=== PATIENT | male | born 1970 | race Caucasian/White ===

== ENCOUNTER → 2017-03-03 10:10 | Outpatient (CLI) | payer MEDICAID, SELFPAY ==
--- NOTE | 2017-03-03 10:39 | XR_ITS ---
XR chest 2V HISTORY: ITS.REASON: Fatigue ORDERING PHYSICIAN: Frederick Alvarado MD PATIENT AGE: 46 years COMPARISON: None available FINDINGS: The cardiomediastinal silhouette and pulmonary vascularity are within normal limits. There is a surgical clip projecting over the left upper chest medially. No lobar consolidation or collapse. There is blunting of the right CP angle. There are slight decrease in height of the upper thoracic vertebra as described in the cervical spine report age indeterminate. IMPRESSION: 1. Small right pleural effusion. 2. Mild wedging upper thoracic vertebra age-indeterminate
--- NOTE | 2017-03-03 10:39 | XR_ITS ---
EXAM: XR lumbar spine 2-3V HISTORY: ITS.REASON: Back Pain ORDERING PHYSICIAN: Frederick Alvarado MD PATIENT AGE: 46 years COMPARISON: None FINDINGS: There is mild lumbar curvature convex right. There is normal alignment. Transitional segment is present at L5-S1. Minimal anterior osteophyte formation along the superior aspect of L1. No fracture or dislocation. No lytic or blastic change. IMPRESSION: 1. Minimal lumbar scoliosis convex right. 2. No acute finding
--- NOTE | 2017-03-03 10:39 | XR_ITS ---
EXAM: XR cervical spine 3V HISTORY: ITS.REASON: Neck Pain ORDERING PHYSICIAN: Frederick Alvarado MD PATIENT AGE: 46 years COMPARISON: None FINDINGS: Normal alignment. No fracture or dislocation. No lytic or blastic change. There is mild degenerative disc disease at C5-C6. There is minimal anterolisthesis of C6 on C7 of 2 mm with mild degenerative disc disease at C6-C7 and C7-T1. There is slight decrease in height anteriorly of C7, T1, T2, and T3. Mild kyphosis noted at the thoracic or cervical junction. IMPRESSION: 1. Mild cervical spondylosis with degenerative disc disease at C5-C6 and C6-C7. 2. Mild wedging of C7, T1, T2, and T3 age-indeterminate with mild kyphosis at the cervicothoracic junction. MRI may be of further value to determine if this wedging is acute or chronic if clinically warranted
[2017-03-03 13:59] LABS: Alanine Aminotransferase 30 U/L (12-78); Alkaline Phosphatase 141 U/L (46-116); Anion Gap 13.8 mEq/L (5-15); Aspartate Amino Transferase 18 U/L (15-37); Bilirubin,Total 0.6 mg/dL (0.2-1.0); Blood Urea Nitrogen 7 mg/dL (7-18); Calcium 9.6 mg/dL (8.5-10.1); Carbon Dioxide 28 mmol/L (21.0-32.0); Chloride 100 mmol/L (98-107); Chol/HDL Ratio 4.3 (1-3.5); Cholesterol 168 mg/dL (140-200); Creatinine,Serum 0.77 mg/dL (0.70-1.30); Estimated Glomerular Filt Rate > 60 ml/min (>60); GFR (African American) > 60 ML/MIN (>60); Glucose 89 mg/dL (74-106); HDL Cholesterol 39 mg/dL (27-67); LDL Cholesterol 111 mg/dL (0-130); Potassium 4.8 mmoL/L (3.5-5.1); Sodium 137 mmol/L (136-145); Triglycerides 90 mg/dL (30-200); VLDL Cholesterol 18 mg/dL (0-40)
[2017-03-03 14:16] LABS: Basophils % 0.3 % (0.1-2.0); Eosinophils # 0.1 K/mm3 (0.0-0.4); Eosinophils % 0.6 % (0.1-12.0); Hematocrit 47.2 % (42.0-52.0); Hemoglobin 15.7 g/dL (14.1-18.0); Lymphocytes # 1.8 K/mm3 (0.7-4.5); Lymphocytes % 20.8 K/mm3 (10-50); Mean Corpuscular HGB Conc 33.3 g/dL (31.8-35.4); Mean Corpuscular Volume 90.2 fl (80-94); Mean Platelet Volume 8.1 fl (7.4-10.4); Monocytes # 0.5 K/mm3 (0.1-1.0); Monocytes % 6.1 % (1.7-9.3); Neutrophils % 72.1 % (37.0-80.0); Platelet Count 322 K/mm3 (142-424); Red Blood Count 5.24 M/mm3 (4.60-6.20); Red Cell Distribution Width 13.6 % (11.5-17.5); White Blood Count 8.4 K/mm3 (4.8-10.8)
== END ==
PROVIDERS: PCP Emergency Medicine; Visit Provider Emergency Medicine
DX: R53.83 Other fatigue (principal); M54.9 Dorsalgia, unspecified; M54.2 Cervicalgia
CPT/HCPCS: 71046; 72040; 72100; 80053; 80061; 85025

== ENCOUNTER 2017-06-19 09:59 | Outpatient (RCR) | payer MEDICAID, SELFPAY ==
--- NOTE | 2017-06-19 10:48 | HMH.PTOPEV ---
Rehab Outpatient Evaluation Rehab OP Evaluation Start: 06/19/17 10:38 Freq: Status: Active Protocol: Document 06/19/17 10:38 FRED (Rec: 06/19/17 10:48 FRED [id number]) Electronically Signed By Michael Krishnamurthy, PT 06/19/17 10:38 Outpatient Therapy Subjective History Subjective History Pt reports h/o chronic neck and LBP for ~15-20 yrs, however, reports exacerbation of s/s over the last 1-2 yrs. Pt reports R > L sided neck pain with radicular s/s down R UE to wrist/hand. Pt reports localized LBP w/o radicular s/ s. PMH:scoliosis, DDD, multiple sx's to correct collapsed lung Chief Complaint Pain Spasms Stiff Clicks Paresthesia Symptom Type Ache Throb Sharp Dull Burning Symptoms Relieved By Rest/Positioning Heat Ice Symptoms Aggravated By Standing Bending/Stooping Physical Activity Twisting Lifting Prior Functional Limitations Reaching Lifting Housework Walking Bending/Stooping Current Functional Limitations Reaching Lifting Housework Walking Bending/Stooping Symptom Description Constant but Variable Level of pain today (0-10) 5 Pain scale - at its best (0-10) 3 Pain scale - at its worst (0-10) 8 Cervical Eval Palpation Cervical Muscles R Cervical Paraspinal R CT Junction R Upper Trapezius L Upper Trapezius Cervical/Thoracic Palpation Findings Tenderness Posture Head/C-Spine Posture Sitting Position Extended Head/C-Spine Posture Standing Position Extended Flexibility Deficits Upper Trapezius Muscle Length (R) Moderate Tightness (L) Moderate Tightness Levaetor Scapulae Muscle Length (R) Moderate Tightness
== END 2017-06-19 10:00 | disposition home or self-care (01) ==
LOC: PT 09:59
PROVIDERS: PCP Emergency Medicine; Visit Provider Emergency Medicine
DX: M54.9 Dorsalgia, unspecified (principal)
CPT/HCPCS: 97163

== ENCOUNTER → 2017-09-28 07:36 | Outpatient (CLI) | payer MEDICAID, SELFPAY ==
--- NOTE | 2017-09-28 | MR_ITS ---
MR cervical spine wo con, MR 3-d myelogram/MRCP HISTORY: Neck pain, When Turning head to the right has neck pain. Symptoms XYRS. ITS.REASON: neck pain ORDERING PHYSICIAN: Frederick Alvarado MD PATIENT AGE: 47 years Comparison: X-RAY 03-03-17 TECHNIQUE: Standard multiplanar multiecho sequences are performed without contrast. 3-D MIP and myelographic images are also rendered and reviewed FINDINGS: There is normal alignment. The craniocervical junction has an unremarkable appearance. C2-C3: Minimal left uncovertebral hypertrophy with minimal left foraminal narrowing. C3-C4: Minimal foraminal disc protrusion on the left with minimal foraminal narrowing on the left. C4-C5: Unremarkable. C5-C6: Degenerative disc disease with concentric bulging disc with type I endplate changes on the right. There is mild narrowing of the canal at 10 mm. No cord compression. Mild to moderate bilateral foraminal narrowing. C6-C7: Unremarkable. C7-T1: Unremarkable. IMPRESSION: 1. Degenerative disc disease with bulging disc at C5-C6 with narrowing of the canal and mild to moderate bilateral foraminal narrowing. 2. Minimal foraminal narrowing at to C3 minimal left foraminal disc protrusion C3-C4
== END ==
PROVIDERS: PCP Emergency Medicine; Visit Provider Emergency Medicine
DX: M54.2 Cervicalgia (principal)
CPT/HCPCS: 72141; 76376

== ENCOUNTER → 2017-11-06 13:05 | Outpatient (POV) | payer MEDICAID, SELFPAY ==
[2017-11-06 13:25] VITALS: BP 141/93; PULSE 102; RESP 18; O2SAT 98
--- NOTE | 2017-11-06 16:34 | HMH.PMCON ---
Assessment and Plan (1) Degenerative disc disease, lumbar Current visit: Yes Status: Chronic Category: Medical Code(s): M51.36 - Other intervertebral disc degeneration, lumbar region (2) Bulging of cervical intervertebral disc Current visit: No Status: Chronic Category: Medical Code(s): M50.20 - Other cervical disc displacement, unspecified cervical region (3) DDD (degenerative disc disease), cervical Current visit: No Status: Chronic Category: Medical Code(s): M50.30 - Other cervical disc degeneration, unspecified cervical region - Assessment and plan all Dx Assessment and Plan for all problems:: Patient and I discussed injection therapy. We will start with an epidural injection at the C5-C6 level. I will follow-up with the patient 2 weeks after and see how he is doing. We may need to get MRI of the lower spine. Patient is not on any anticoagulation therapy. Patient's tried and failed anti-inflammatories. This note was dictated using voice recognition software and may contain errors or omissions HPI - Data of Consult Consult date: 11/06/17 Requesting Physician: Ashwini Bone APRN Primary Care Provider: Frederick Alvarado MD - Consult Narrative Reason for consult: Neck and back pain History of present illness: Mr. Menard is a 47 year old male who presents today for consultation in regards to his neck and back pain. Patient fell off a slide as a child. Patient states he has had trouble ever since. Patient states all movement increases pain or medication decreases pain. Patient is currently on gabapentin and Tylenol 3. Patient has done physical therapy for a couple times. Patient states he has not completed a full round of therapy. Patient states massage therapy does not help. Patient states he has his lungs collapsed several times and has had several surgeries. Patient rates his pain 7 out of 10 today states that both of his arms are numb and tingling at times along with his right leg. Patient does have an MRI showing some degeneration in his cervical spine. Patient also has degeneration in his lumbar spine according to x-ray. CC: Ashwini Bone APRN [facility] History I have reviewed the patient's past medical history: Yes Medical History: Reports:: Chronic Obstructive Pulmonary Disease (COPD), Pulmonary Embolism Denies:: Diabetes Mellitus Type 1, Diabetes Mellitus Type 2 Other Medical History: Reports: Arthritis Other Surgeries: Yes: Other Amputation: No Fractures: Yes - *Social History Smoking Status: Current every day smoker Tobacco Type: cigarettes # Packs/Day (cigarettes): 1 Alcohol Intake: never Substance Use Type: denies use Occupational Status: unemployed Housing: house Household Members: family - Psychiatric History Expresses thoughts of harming self/others: None Suicide Plan Description: No Plan *Family Hx:: Heart Attack, Diabetes, Coronary Artery Disease, Cancer, Hypertension Review of Systems - Review of Systems ROS General: no recent weight change, no fever, no sleep disturbances Respiratory: no cough, no shortness of air, no recurring pulmonary infections Cardiovascular/Peripheral Vascular: No chest pain, No palpitations, no edema, no shortness of breath. Gastrointestinal: no incontinence, normal bowel movements reported Genitourinary: no incontinence Musculoskeletal: Back pain, neck pain, arm pain, leg pain Psychiatric: normal mood/ affect Neurological: [denies weakness in extremities], [denies balance issues] Meds Allergies Allergy/AdvReac Type Severity Reaction Status Date / Time Penicillins Allergy Severe Rash Verified 09/12/17 09:41 Objective Vital signs: Pulse Resp BP Pulse Ox 102 H 18 141/93 98 11/06/17 13:25 11/06/17 13:25 11/06/17 13:25 11/06/17 13:25 Narrative: Physical Exam General: Alert and oriented x3, no acute distress, pleasant and cooperative, [on room air] Lungs: Resps E/U, Symme
--- NOTE | 2017-11-06 16:38 | P.CONS_ITS ---
Assessment and Plan (1) Degenerative disc disease, lumbar Current visit: Yes Status: Chronic Category: Medical Code(s): M51.36 - Other intervertebral disc degeneration, lumbar region (2) Bulging of cervical intervertebral disc Current visit: No Status: Chronic Category: Medical Code(s): M50.20 - Other cervical disc displacement, unspecified cervical region (3) DDD (degenerative disc disease), cervical Current visit: No Status: Chronic Category: Medical Code(s): M50.30 - Other cervical disc degeneration, unspecified cervical region - Assessment and plan all Dx Assessment and Plan for all problems:: Patient and I discussed injection therapy. We will start with an epidural injection at the C5-C6 level. I will follow-up with the patient 2 weeks after and see how he is doing. We may need to get MRI of the lower spine. Patient is not on any anticoagulation therapy. Patient's tried and failed anti- inflammatories. This note was dictated using voice recognition software and may contain errors or omissions HPI - Data of Consult Consult date: 11/06/17 Requesting Physician: Ashwini Bone APRN Primary Care Provider: Frederick Alvarado MD - Consult Narrative Reason for consult: Neck and back pain History of present illness: Mr. Menard is a 47 year old male who presents today for consultation in regards to his neck and back pain. Patient fell off a slide as a child. Patient states he has had trouble ever since. Patient states all movement increases pain or medication decreases pain. Patient is currently on gabapentin and Tylenol 3. Patient has done physical therapy for a couple times. Patient states he has not completed a full round of therapy. Patient states massage therapy does not help. Patient states he has his lungs collapsed several times and has had several surgeries. Patient rates his pain 7 out of 10 today states that both of his arms are numb and tingling at times along with his right leg. Patient does have an MRI showing some degeneration in his cervical spine. Patient also has degeneration in his lumbar spine according to x-ray. CC: Ashwini Bone APRN [facility] History I have reviewed the patient's past medical history: Yes Medical History: Reports:: Chronic Obstructive Pulmonary Disease (COPD), Pulmonary Embolism Denies:: Diabetes Mellitus Type 1, Diabetes Mellitus Type 2 Other Medical History: Reports: Arthritis Other Surgeries: Yes: Other Amputation: No Fractures: Yes - *Social History Smoking Status: Current every day smoker Tobacco Type: cigarettes # Packs/Day (cigarettes): 1 Alcohol Intake: never Substance Use Type: denies use Occupational Status: unemployed Housing: house Household Members: family - Psychiatric History Expresses thoughts of harming self/others: None Suicide Plan Description: No Plan *Family Hx:: Heart Attack, Diabetes, Coronary Artery Disease, Cancer, Hypertension Review of Systems - Review of Systems ROS General: no recent weight change, no fever, no sleep disturbances Respiratory: no cough, no shortness of air, no recurring pulmonary infections Cardiovascular/Peripheral Vascular: No chest pain, No palpitations, no edema, no shortness of breath. Gastrointestinal: no incontinence, normal bowel movements reported Genitourinary: no incontinence Musculoskeletal: Back pain, neck pain, arm pain, leg pain Psychiatric: normal mood/ affect Neurological: [denies weakness in extremities], [denies balance issues] Meds
== END ==
PROVIDERS: PCP Emergency Medicine; Visit Provider Clinical Nurse Specialist Family Health
DX: M51.36 Other intervertebral disc degeneration, lumbar region (principal); M50.30 Other cervical disc degeneration, unspecified cervical region
CPT/HCPCS: 99202

== ENCOUNTER → 2017-12-25 10:46 | Outpatient (POV) | payer MEDICAID, SELFPAY ==
[2017-12-25 10:55] VITALS: BP 125/78; PULSE 93; RESP 18; O2SAT 98; BMI 21.4
--- NOTE | 2017-12-25 11:10 | HMH.PAINSOAP ---
[facility] Pain Management SOAP Note Subjective:: Patient is a 47-year-old white male who presents today for follow-up after his cervical epidural injection. Patient states I felt like punching a wall after my injection . Patient states he did not get any relief from his injection. Patient states that he can let his MRI speak for itself because it is plain his day. Patient not been seen by a neurosurgeon. Patient is uninterested in any more injections moving forward. He rates his pain a 6 out of 10 today. ROS General: no recent weight change, no fever, no sleep disturbances Respiratory: no cough, no shortness of air, no recurring pulmonary infections Cardiovascular/Peripheral Vascular: No chest pain, No palpitations, no edema, no shortness of breath. Gastrointestinal: no incontinence, normal bowel movements reported Genitourinary: no incontinence Musculoskeletal: Neck pain Psychiatric: normal mood/ affect, Neurological: [denies weakness in extremities], [denies balance issues] Objective:: Physical Exam General: Alert and oriented x3, no acute distress, pleasant and cooperative, [on room air] Lungs: Resps E/U, Symmetrical chest expansion, Eyes: PERRL Musculoskeletal: Flexion and extension of cervical spine somewhat guarded secondary to pain, deep tendon reflexes normal, strength in upper and lower extremities [5/5], slightly antalgic gait noted Neurological: speech clear, funeral workers equal, no gross sensory deficits Assessment:: Degenerative disc disease cervical spine with cervical radiculopathy Plan:: Patient is uninterested in any injections. Patient has not been seen by a neurosurgeon we will send him to 1. At this time there is nothing can offer him. Patient is uninterested in our interventional means of care. This note was dictated using voice recognition software and may contain errors or omissions
== END ==
PROVIDERS: PCP Emergency Medicine; Visit Provider Clinical Nurse Specialist Family Health
DX: M50.10 Cervical disc disorder with radiculopathy, unspecified cervical region (principal)
CPT/HCPCS: 99213

== ENCOUNTER 2018-01-27 15:41 | Observation (INO) ==
[2018-01-27 16:45] LABS: Microscopic, Urine URINE MICROSCOPIC (MICROSCOPIC)
[2018-01-27 16:46] LABS: Basophils % 0.2 % (0.1-2.0); Hematocrit 42.1 % (42.0-52.0); Hemoglobin 14.2 g/dL (14.1-18.0); Lymphocytes % 10.8 % (10-50); Mean Corpuscular HGB Conc 33.9 g/dL (31.8-35.4); Mean Corpuscular Hemoglobin 29.7 pg (27.0-31.2); Mean Corpuscular Volume 87.6 fl (80-94); Mean Platelet Volume 7.1 fl (7.4-10.4); Monocytes # 1.1 K/mm3 (0.1-1.0); Monocytes % 5.6 % (1.7-9.3); Neutrophils # 15.7 K/mm3 (1.8-7.8); Neutrophils % 83.3 % (37.0-80.0); Platelet Count 286 K/mm3 (142-424); Red Cell Distribution Width 13.9 % (11.5-17.5); White Blood Count 18.8 K/mm3 (4.8-10.8)
[2018-01-27 16:46] LABS: Appearance,Urine CLOUDY (Clear); Blood, Urine 1+ (Negative); Color,Urine YELLOW (Yellow); Glucose,Urine (UA) TRACE (Negative); Ketones,Urine 1+ (Negative); Leukocyte Esterase,Urine TRACE (Negative); Protein,Urine 3+ (Negative); Urobilinogen,Urine >=8.0 EU/dl (0.2)
[2018-01-27 16:47] LABS: Bilirubin,Urine 2+ (Negative)
[2018-01-27 16:55] LABS: Amylase 19 U/L (25-115); Lipase 43 u/L (73-393)
[2018-01-27 16:56] LABS: Anion Gap 10.7 mEq/L (5-15); Potassium 3.9 mmoL/L (3.5-5.1)
[2018-01-27 16:57] LABS: Albumin Level 3.4 gm/dL (3.4-5.0); Albumin/Globulin Ratio 0.7 (1.1-1.8); Bilirubin,Total 0.9 mg/dL (0.2-1.0); Calcium 9.1 mg/dL (8.5-10.1); Globulin 4.8 gm/dl (1.3-3.2); Total Protein,Serum 8.2 gm/dL (6.4-8.2)
--- NOTE | 2018-01-27 16:57 | Emergency Department Note ---
ED Disposition Clinical Impression: Indirect inguinal hernia, Prostate enlargement, Acute prostatitis, Tobacco use disorder, COPD (chronic obstructive pulmonary disease), UTI (urinary tract infection), Leucocytosis, Cystitis, SIRS (systemic inflammatory response syndrome) Clinical Impression: (Ruled Out): Prostatitis Disposition: Still a Patient Condition on Discharge: Fair Instructions: DI for Acute Abdomen Referrals: Provider,Referral, [Primary Care Provider] - - Critical Care Critical Care Time: No Attestation: On 01/27/18, the high probability of a clinically significant, sudden or life threatening deterioration of the following system(s) required my full and direct attention, intervention and personal management. The time I documented below is in addition to time spent performing reported procedures but includes the following listed in this critical care notation. Medical Decision Making - Fredrick Inquiry Pt receiving controlled substance: No Fredrick was queried for this patient: No Vital Signs: 01/27/18 15:53 01/27/18 16:12 01/27/18 17:59 Temperature 102.1 F H Temperature Source Oral Pulse Rate [Left Brachial] Respiratory Rate 17 Blood Pressure [Right Arm] 108/75 L 109/80 L 125/85 Blood Pressure Mean [Right Arm] 86 89 98 Blood Pressure Source [Right Arm] Automatic Cuff Automatic Cuff Blood Pressure Position [Right Arm] Sitting Sitting 02 Sat by Pulse Oximetry 99 Oxygen Delivery Method Room Air 01/27/18 18:00 Temperature Temperature Source Pulse Rate [Left Brachial] 99 H Respiratory Rate Blood Pressure [Right Arm] 138/71 Blood Pressure Mean [Right Arm] 93 Blood Pressure Source [Right Arm] Blood Pressure Position [Right Arm] 02 Sat by Pulse Oximetry 98 Oxygen Delivery Method - Lab Data Lab Results 01/27/18 16:00: WBC 18.8 H, RBC 4.80, Hgb 14.2, Hct 42.1, MCV 87.6, MCH 29.7, MCHC 33.9, RDW 13.9, Plt Count 286, MPV 7.1 L, Neut % (Auto) 83.3 H, Lymph % (Auto) 10.8, [place] % (Auto) 5.6, Eos % (Auto) 0.0 L, Baso % (Auto) 0.2, Neut # (Auto) 15.7 H, Lymph # (Auto) 2.0, [place] # (Auto) 1.1 H, Eos # (Auto) 0.0, Baso # (Auto) 0.0, Total Counted 100, Neutrophils % (Manual) 83 H, Band Neutrophils % 1.0, Lymphocytes % (Manual) 7 L, Atypical Lymphs % 2.0, Monocytes % (Manual) 7, Platelet Estimate Normal, RBC Morphology Normal 01/27/18 16:00: Lactate 2.2 H 01/27/18 16:00: Ammonia 11 L 01/27/18 16:00: Amylase 19 L, Lipase 43 L 01/27/18 16:00: Sodium 132 L, Potassium 3.9, Chloride 93 L, Carbon Dioxide 28, Anion Gap 10.7, BUN 7, Creatinine 0.75, Estimated Creat Clear 112, Estimated GFR 113, Est GFR ( Amer) 136, Glucose 109 H, Calcium 9.1, Total Bilirubin 0.9, AST 12 L, ALT 33, Alkaline Phosphatase 121 H, Total Protein 8.2, Albumin 3.4, Globulin 4.8 H, Albumin/Globulin Ratio 0.7 L 01/27/18 16:38: Urine Color Yellow, Urine Appearance Cloudy, Urine pH 7.0, Ur Specific [place] 1.020, Urine Protein 3+, Urine Glucose (UA) Trace, Urine Ketones 1+, Urine Blood 1+, Urine Nitrate Positive, Urine Bilirubin 2+ A, Urine Urobilinogen >=8.0, Ur Leukocyte Esterase Trace, Urine WBC 10-20, Ur Squamous Epith Cells Occasional, Urine Bacteria 2+, Urine Sperm 3+ 01/27/18 16:44: Stool Occult Blood Negative Result diagrams: 01/27/18 16:00 01/27/18 16:00 Orders (Tests/Meds): ED MEDICATIONS Generic Name Dose Route Start Last Admin Trade Name Freq PRN Reason Stop Dose Admin Levofloxacin/Dextrose 750 mg in 150 mls @ 100 mls/hr 01/27/18 17:00 01/27/18 18:03 Levofloxacin 750mg/150ml Premix IV 02/10/18 16:59 100 mls/hr Q24H EUGENE Administration Protocol Discontinued Medications Generic Name Dose Route Start Last Admin Trade Name Freq PRN Reason Stop Dose Admin Ketorolac Tromethamine 30 mg 01/27/18 16:45 01/27/18 17:17 Toradol 30mg/Ml Vial IV 01/27/18 16:46 30 mg ONCE ONE Administration ORDERS Category Date Time Status Occult Blood,Stool Stat Lab 01/27/18 16:44 Ordered UA [Urinalysis and Microscopic] Stat Lab 01/27/18 16:38 Ordered Blood Culture Stat Micro 01/27/18 17:35 Received Urine Culture Stat Micro 01/27/18 16:38 Received - Radiology Data #1 Image(s): Chest Image Reviewed: Yes I reviewed the patient's radiology image Preliminary Findings: Abnormal COPD changes with no acute infiltrates. IMPRESSION...... lungs clear. Nothing definitely acute Mild chronic changes.No significant change since February. Left eduar is upper normal prominence-but most likely stable since February. If persistent Cough or chest symptoms, this would warrant follow-up. - CT Data CT Scan: Abdomen, Pelvis Time Received: 18:18 Findings Narrative: IMPRESSION 1.. Urinary bladder wall appears thickened more than I would expect, even for its contracted state. Also appears to be slight hazy appearance throughout the lower pelvis, in the fat surrounding urinary bladder and seminal vesicles. .-Findings suspect for cystitis. Requires correlation with urinalysis 2. Prostate enlarged measuring up to 5.6 cm diameter Might also yields bladder wall hypertrophy contributing to the above bladder wall thickening appearance. 3. No urinary tract calculi nor obstruction otherwise evident. Right kidney with benign right renal cyst noted 4. Low-density semisolid stool throughout right & transverse colon with some air-fluid levels here. Possible developing loose stools/ diarrhea?. Increased gas in large & small bowel. Slight increased fluid within the generous caliber distal small bowel... Upper normal wall thickness sigmoid colon & descending colon . Nonspecific features but may reflect developing enteritis/colitis ; (vs mild ileus or changes related to cystitis). Correlation required 5. Appendix normal 6. Fat-containing right inguinal hernia noted. No bowel loops. No inflammation Medical Decision Narrative: I reviewed the patient's CT scan with Dr. Townsend supervisor alteration workroom for Dr. Alvarado agreed to admit the patient for prostatitis/cystitis and inflammatory response disease. Patient was agreeable for admission.. Abdominal Pain HPI - General Chief Complaint: Abdominal Pain Stated Complaint: Belly pain; burning when urinate Time Seen by Provider: 01/27/18 16:00 Mode of Arrival: Ambulatory Limitations: No Limitations Description of Symptoms (Recalled from ER Triage Doc. by RN): farmer with voiding, dysuria, low belly pain, back pain, fever, body aches, unable to keep stuff down - History of Present Illness HPI narrative: Mr. Luo is a 47 years old white male smoker with a history of pneumothorax and multiple chest surgeries. He is due for colonoscopy and prostate check. He had right indirect inguinal hernia for the past 2 years. Days ago he developed lower abdominal pain, fever and dark urine. He presented today for evaluation. MD complaint: abdominal pain Onset (ago): day(s) (5 days.) Consistency: constant Location: suprapubic Severity: moderate Quality: sharp Radiation: none Migration to: no migration Relieving factors: nothing Exacerbating factors: nothing Associated symptoms: dysuria (And dark urine.), other - Related Data Home Medications Medication Instructions Recorded Confirmed Gabapentin [Gabapentin 100mg Cap] 300 mg PO TID 11/24/17 11/24/17 Previous Rx's Medication Instructions Recorded acetaminophen 300 mg-codeine 30 mg 1 tab PO BID PRN #60 tab 11/13/17 tablet Allergies Allergy/AdvReac Type Severity Reaction Status Date / Time Penicillins Allergy Severe Rash Verified 11/13/17 08:22 [facility] History I have reviewed the patient's past medical history: Yes Medical History: Reports:: Chronic Obstructive Pulmonary Disease (COPD), Pulmonary Embolism Denies:: Cancer, Diabetes Mellitus Type 1, Diabetes Mellitus Type 2, MRSA, Seizures Other Medical History: Reports: Arthritis Comment: Back Pain Other Surgeries: Yes: Other Amputation: No Fractures: Yes Comment: RT arm - Social History Educational Level: Completed High School Smoking Status: Current every day smoker Tobacco Type: cigarettes # Packs/Day (cigarettes): 1 Alcohol Intake: never Substance Use Type: denies use Occupational Status: unemployed Housing: house Household Members: family - Psychiatric History Expresses thoughts of harming self/others: None Suicide Plan Description: No Plan Family Hx:: Heart Attack, Diabetes, Coronary Artery Disease, Cancer, Hypertension ROS Obtained: Yes All systems reviewed & no additional complaints Physical Exam - General General appearance: alert, in no apparent distress - Head Head exam: atraumatic, normocephalic, normal inspection - Eye Eye exam: Present: normal appearance, PERRL, EOMI. Absent: scleral icterus, nystagmus - ENT ENT exam: Present: normal exam, normal oropharynx, mucous membranes moist, TM's normal bilaterally, normal external ear exam - Neck Neck exam: Present: normal inspection, full ROM, trachea midline. Absent: tenderness, meningismus, lymphadenopathy - Chest Chest inspection: Present: normal inspection, symmetric chest wall rise. Absent: tenderness - Respiratory Respiratory exam: Present: normal lung sounds bilaterally. Absent: respiratory distress - Cardiovascular Cardiovascular exam: Present: regular rate, normal rhythm, normal heart sounds. Absent: JVD - Abdominal Exam Abdominal exam: Present: soft, normal bowel sounds. Absent: distention, tenderness, guarding, rebound, rigidity - Rectal Exam Rectal exam: Present: normal inspection, normal rectal tone, heme (-) stool, tenderness, prostate tenderness, other (Enlargement of the left prostate with preserved median fissure no nodules tender to palpation.) - exam: Present: normal testicular lie, circumcised, other (Patient does have a reducible right indirect inguinal hernia. ). Absent: testicular tenderness, urethral discharge, scrotal swelling - Extremities Exam Extremities exam: Present: normal inspection, full ROM, normal capillary refill. Absent: tenderness, calf tenderness - Back Exam Back exam: Present: normal inspection. Absent: tenderness - Neurological Exam Neurological exam: Present: alert, oriented X3, CN II-XII intact, motor sensory deficit - Psychiatric Psychiatric exam: Present: normal affect, normal mood - Skin Skin exam: Present: warm, dry, intact, normal color - Lymphatic Lymphatic Findings: no adenopathy
[2018-01-27 17:01] LABS: Bacteria,Urine 2+ /lpf; Sperm,Urine 3+ /lpf; Squamous Epithelial Cell,Urine Occasional #/hpf (0-5)
[2018-01-27 17:11] LABS: Lymphocytes % 7 % (10-50); Monocytes % 7 % (2-9); Neutrophils % 83 % (42-76); RBC Morphology Normal; Total Cells Counted 100
--- NOTE | 2018-01-27 21:26 | History & Physical Report ---
*Admission Date: 01/27/18 *Chief complaint: abd pain *History of present illness: this wm has lower abd pain which has been proressive over the last few days with pain and dec urination w/o hematuria -kate Luo is a 47 years old white male smoker with a history of pneumothorax and multiple chest surgeries. He is due for colonoscopy and prostate check. He had right indirect inguinal hernia for the past 2 years. Days ago he developed lower abdominal pain, fever and dark urine. He presented today for evaluation. pt was admitted for ivf and abx and pain control [facility] History I have reviewed the patient's past medical history: Yes Medical History: Reports:: Chronic Obstructive Pulmonary Disease (COPD), Pulmonary Embolism Denies:: Cancer, Diabetes Mellitus Type 1, Diabetes Mellitus Type 2, MRSA, Seizures Other Medical History: Reports: Anemia, Arthritis Other Surgeries: Yes: Other (lung sx) Amputation: No Fractures: Yes (r arm) - *Social History Educational Level: Attended Grade School Smoking Status: Current every day smoker Tobacco Type: cigarettes # Packs/Day (cigarettes): 1 #Yrs smoked (if former smoker): 17 Alcohol Intake: former Alcohol Intake Frequency:: holidays/special occasions only Substance Use Type: denies use Occupational Status: unemployed Housing: house Household Members: family - Psychiatric History Expresses thoughts of harming self/others: None Suicide Plan Description: No Plan *Family Hx:: Heart Attack, Diabetes, Coronary Artery Disease, Cancer, Hypertension Review of Systems - Review of Systems Review of systems:: pertinent systems reviewed and negative unless documented below - Constitutional Reports fever(s), Reports malaise - Eyes Denies change in vision - ENT Denies sore throat - *Cardiovascular Denies chest pain - *Respiratory Denies cough - *Gastrointestinal Reports abdominal pain, Denies vomiting - *Genitourinary Reports difficulty urinating, Denies blood in urine - *Musculoskeletal Denies joint pain, Denies neck pain - Integumentary/Breasts Denies rash - *Neurologic Denies seizure-like activity - Psychiatric Reports anxiety Meds Home Medications Medication Instructions Recorded Confirmed Type Gabapentin [Gabapentin 100mg Cap] 300 mg PO BID 11/24/17 01/27/18 History Allergies Allergy/AdvReac Type Severity Reaction Status Date / Time Penicillins Allergy Severe Rash Verified 11/13/17 08:22 tramadol Allergy Verified 01/28/18 01:38 Exam Vital signs and Labs for Last 24 Hours: Temp Pulse Resp BP Pulse Ox 98.1 F 90 18 115/77 100 01/27/18 20:35 01/27/18 20:35 01/27/18 20:35 01/27/18 20:35 01/27/18 20:35 Laboratory Results - last 24 hr 01/27/18 16:00: WBC 18.8 H, RBC 4.80, Hgb 14.2, Hct 42.1, MCV 87.6, MCH 29.7, MCHC 33.9, RDW 13.9, Plt Count 286, MPV 7.1 L, Neut % (Auto) 83.3 H, Lymph % ( Auto) 10.8, [place] % (Auto) 5.6, Eos % (Auto) 0.0 L, Baso % (Auto) 0.2, Neut # (Auto) 15.7 H, Lymph # (Auto) 2.0, [place] # (Auto) 1.1 H, Eos # (Auto) 0.0, Baso # (Auto) 0.0, Total Counted 100, Neutrophils % (Manual) 83 H, Band Neutrophils % 1.0, Lymphocytes % (Manual) 7 L, Atypical Lymphs % 2.0, Monocytes % (Manual) 7, Platelet Estimate Normal, RBC Morphology Normal 01/27/18 16:00: Lactate 2.2 H 01/27/18 16:00: Ammonia 11 L 01/27/18 16:00: Amylase 19 L, Lipase 43 L 01/27/18 16:00: Sodium 132 L, Potassium 3.9, Chloride 93 L, Carbon Dioxide 28, Anion Gap 10.7, BUN 7, Creatinine 0.75, Estimated Creat Clear 112, Estimated GFR 113, Est GFR ( Amer) 136, Glucose 109 H, Calcium 9.1, Total Bilirubin 0.9, AST 12 L, ALT 33, Alkaline Phosphatase 121 H, Total Protein 8.2, Albumin 3.4, Globulin 4.8 H, Albumin/Globulin Ratio 0.7 L 01/27/18 16:38: Urine Color Yellow, Urine Appearance Cloudy, Urine pH 7.0, Ur Specific [place] 1.020, Urine Protein 3+, Urine Glucose (UA) Trace, Urine Ketones 1+, Urine Blood 1+, Urine Nitrate Positive, Urine Bilirubin 2+ A, Urine Urobilinogen >=8.0, Ur Leukocyte Esterase Trace, Urine WBC 10-20, Ur Squamous Epith Cells Occasional, Urine Bacteria 2+, Urine Sperm 3+ 01/27/18 16:44: Stool Occult Blood Negative 01/27/18 18:00: Lactate 0.7 I & O for Last 24 hours: Intake & Output 01/25/18 01/26/18 01/27/18 01/28/18 11:59 11:59 11:59 11:59 Weight 140 lb - Constitutional no acute distress, thin - *Routine HEENT Exam Head: Present: normocephalic Eye: Present: EOMI, PERRL. Absent: conjunctival icterus ENT: Present: mucous membranes dry - *Routine Neck Exam Present: supple - *Routine Respiratory Exam Present: CTA bilaterally - *Routine Cardiovascular Exam Present: RRR. Absent: murmur - *Routine Abdominal Exam Present: soft Comments: suprapubic tenderness - *Routine Extremities Exam Present: pulses intact - Routine Back/Spine/Pelvis Exam Back/Spine: Absent: CVA tenderness - *Routine Skin Exam Present: intact - *Routine Neurological Exam Present: alert, oriented X3, CN II-XII intact - Routine Psychiatric Exam Present: normal affect Assessment and Plan (1) Acute prostatitis Current visit: Yes Status: Acute Category: Medical Code(s): N41.0 - Acute prostatitis (2) Tobacco use disorder Current visit: Yes Status: Acute Category: Medical Code(s): F17.200 - Nicotine dependence, unspecified, uncomplicated
[2018-01-28 06:49] LABS: Basophils % 0.2 % (0.1-2.0); Eosinophils % 0.3 % (0.1-12.0); Hematocrit 37.6 % (42.0-52.0); Lymphocytes % 17.6 % (10-50); Mean Corpuscular Hemoglobin 29.3 pg (27.0-31.2); Mean Corpuscular Volume 88.8 fl (80-94); Mean Platelet Volume 7.4 fl (7.4-10.4); Monocytes # 0.8 K/mm3 (0.1-1.0); Monocytes % 6.6 % (1.7-9.3); Neutrophils # 8.6 K/mm3 (1.8-7.8); Neutrophils % 75.3 % (37.0-80.0); Platelet Count 251 K/mm3 (142-424); Red Blood Count 4.24 M/mm3 (4.60-6.20); White Blood Count 11.4 K/mm3 (4.8-10.8)
[2018-01-28 06:50] LABS: Hemoglobin 12.4 g/dL (14.1-18.0)
[2018-01-28 07:01] LABS: Calcium 8.6 mg/dL (8.5-10.1)
--- NOTE | 2018-01-28 09:13 | Progress Note ---
Internal Medicine - PN: Subj *Date: 01/28/18 *Time: 08:00 Interval history: pt doing better and less pain Exam Vital signs and Labs for Last 24 Hours: Temp Pulse Resp BP Pulse Ox 98.6 F 78 18 101/63 L 100 01/28/18 07:28 01/28/18 07:28 01/28/18 07:28 01/28/18 07:28 01/28/18 07:28 Laboratory Results - last 24 hr 01/27/18 16:00: WBC 18.8 H, RBC 4.80, Hgb 14.2, Hct 42.1, MCV 87.6, MCH 29.7, MCHC 33.9, RDW 13.9, Plt Count 286, MPV 7.1 L, Neut % (Auto) 83.3 H, Lymph % (Auto) 10.8, [place] % (Auto) 5.6, Eos % (Auto) 0.0 L, Baso % (Auto) 0.2, Neut # (Auto) 15.7 H, Lymph # (Auto) 2.0, [place] # (Auto) 1.1 H, Eos # (Auto) 0.0, Baso # (Auto) 0.0, Total Counted 100, Neutrophils % (Manual) 83 H, Band Neutrophils % 1.0, Lymphocytes % (Manual) 7 L, Atypical Lymphs % 2.0, Monocytes % (Manual) 7, Platelet Estimate Normal, RBC Morphology Normal 01/27/18 16:00: Lactate 2.2 H 01/27/18 16:00: Ammonia 11 L 01/27/18 16:00: Amylase 19 L, Lipase 43 L 01/27/18 16:00: Sodium 132 L, Potassium 3.9, Chloride 93 L, Carbon Dioxide 28, Anion Gap 10.7, BUN 7, Creatinine 0.75, Estimated Creat Clear 112, Estimated GFR 113, Est GFR ( Amer) 136, Glucose 109 H, Calcium 9.1, Total Bilirubin 0.9, AST 12 L, ALT 33, Alkaline Phosphatase 121 H, Total Protein 8.2, Albumin 3.4, Globulin 4.8 H, Albumin/Globulin Ratio 0.7 L 01/27/18 16:38: Urine Color Yellow, Urine Appearance Cloudy, Urine pH 7.0, Ur Specific [place] 1.020, Urine Protein 3+, Urine Glucose (UA) Trace, Urine Ketones 1+, Urine Blood 1+, Urine Nitrate Positive, Urine Bilirubin 2+ A, Urine Urobilinogen >=8.0, Ur Leukocyte Esterase Trace, Urine WBC 10-20, Ur Squamous Epith Cells Occasional, Urine Bacteria 2+, Urine Sperm 3+ 01/27/18 16:44: Stool Occult Blood Negative 01/27/18 18:00: Lactate 0.7 01/28/18 06:30: WBC 11.4 H D, RBC 4.24 L, Hgb 12.4 L D, Hct 37.6 L, MCV 88.8, MCH 29.3, MCHC 33.0, RDW 14.0, Plt Count 251, MPV 7.4, Neut % (Auto) 75.3, Lymph % (Auto) 17.6, [place] % (Auto) 6.6, Eos % (Auto) 0.3, Baso % (Auto) 0.2, Neut # (Auto) 8.6 H, Lymph # (Auto) 2.0, [place] # (Auto) 0.8, Eos # (Auto) 0.0, Baso # (Auto) 0.0 01/28/18 06:30: Sodium 138, Potassium 4.0, Chloride 104, Carbon Dioxide 28, Anion Gap 10.0, BUN 6 L, Creatinine 0.76, Estimated Creat Clear 110, Estimated GFR 111, Est GFR ( Amer) 134, Glucose 94, Calcium 8.6 I & O for Last 24 hours: Intake & Output 01/25/18 01/26/18 01/27/18 01/28/18 11:59 11:59 11:59 11:59 Intake Total 360 / 360 Output Total 1075 / 1075 Balance -715 / -715 Weight 140 lb Microbiology Reports for the Last 24 Hours: Microbiology 01/27/18 16:38 Urine,Clean Catch Urine Culture - Preliminary - Constitutional no acute distress - *Routine HEENT Exam Head: Present: normocephalic Eye: Present: EOMI, PERRL ENT: Present: mucous membranes dry - *Routine Neck Exam Present: supple - *Routine Respiratory Exam Absent: respiratory distress - *Routine Cardiovascular Exam Present: RRR, murmur - *Routine Abdominal Exam Present: soft - *Routine Extremities Exam Present: pulses intact - *Routine Skin Exam Present: intact - *Routine Neurological Exam Present: alert, CN II-XII intact - Routine Psychiatric Exam Present: normal affect Assessment and Plan (1) Acute prostatitis Current visit: Yes Status: Acute Category: Medical Code(s): N41.0 - Acute prostatitis (2) Tobacco use disorder Current visit: Yes Status: Acute Category: Medical Code(s): F17.200 - Nicotine dependence, unspecified, uncomplicated
--- NOTE | 2018-01-28 10:28 | Pharmacy Consult Notes ---
[facility] Pharmacy VTE Monitoring - Patient Demographics Admission date: 01/28/18 Report Date: 01/28/18 Time: 10:28 Allergies/Adverse Reactions: Patient Allergies Penicillins Allergy (Severe, Verified 11/13/17 08:22) Rash tramadol Allergy (Verified 01/28/18 01:38) Height: 1.75 m Weight: 63.503 kg Patient Problems: Current Active Problems Indirect inguinal hernia (Acute) Prostate enlargement (Acute) Acute prostatitis (Acute) Tobacco use disorder (Acute) COPD (chronic obstructive pulmonary disease) (Acute) UTI (urinary tract infection) (Acute) Leucocytosis (Acute) Cystitis (Acute) SIRS (systemic inflammatory response syndrome) (Acute) - VTE Risk Labs: VTE Related Lab Results Hgb 12.4 g/dL (14.1-18.0) L D 01/28/18 06:30 Hct 37.6 % (42.0-52.0) L 01/28/18 06:30 Plt Count 251 K/mm3 (142-424) 01/28/18 06:30 BUN 6 mg/dL (7-18) L 01/28/18 06:30 Creatinine 0.76 mg/dL (0.70-1.30) 01/28/18 06:30 Estimated Creat Clear 110 mL/min (50-200) 01/28/18 06:30 Was VTE Risk Assessment Performed: Yes VTE Risk Level: Low Risk - Prophylaxis Types of VTE Prophylaxis: TEDS Knee High (MARCIANO HOSE ORDERED)
--- NOTE | 2018-01-28 10:48 | Pharmacy Consult Notes ---
- Pharmacy Consult Date: 01/28/18 Time: 10:46 Referring provider: DR. PUGH Reason for Consult:: TOBRAMYCIN DOSING Allergies and ADEs:: Allergies Allergy/AdvReac Type Severity Reaction Status Date / Time Penicillins Allergy Severe Rash Verified 11/13/17 08:22 tramadol Allergy Verified 01/28/18 01:38 Home Medications:: Home Medications Medication Instructions Recorded Confirmed Type Gabapentin [Gabapentin 100mg Cap] 300 mg PO TID 11/24/17 01/28/18 History Height: 1.75 m Weight: 63.503 kg Laboratory Results:: Laboratory Results - last 24 hr 01/27/18 16:00: WBC 18.8 H, RBC 4.80, Hgb 14.2, Hct 42.1, MCV 87.6, MCH 29.7, MCHC 33.9, RDW 13.9, Plt Count 286, MPV 7.1 L, Neut % (Auto) 83.3 H, Lymph % (Auto) 10.8, [place] % (Auto) 5.6, Eos % (Auto) 0.0 L, Baso % (Auto) 0.2, Neut # (Auto) 15.7 H, Lymph # (Auto) 2.0, [place] # (Auto) 1.1 H, Eos # (Auto) 0.0, Baso # (Auto) 0.0, Total Counted 100, Neutrophils % (Manual) 83 H, Band Neutrophils % 1.0, Lymphocytes % (Manual) 7 L, Atypical Lymphs % 2.0, Monocytes % (Manual) 7, Platelet Estimate Normal, RBC Morphology Normal 01/27/18 16:00: Lactate 2.2 H 01/27/18 16:00: Ammonia 11 L 01/27/18 16:00: Amylase 19 L, Lipase 43 L 01/27/18 16:00: Sodium 132 L, Potassium 3.9, Chloride 93 L, Carbon Dioxide 28, Anion Gap 10.7, BUN 7, Creatinine 0.75, Estimated Creat Clear 112, Estimated GFR 113, Est GFR ( Amer) 136, Glucose 109 H, Calcium 9.1, Total Bilirubin 0.9, AST 12 L, ALT 33, Alkaline Phosphatase 121 H, Total Protein 8.2, Albumin 3.4, Globulin 4.8 H, Albumin/Globulin Ratio 0.7 L 01/27/18 16:38: Urine Color Yellow, Urine Appearance Cloudy, Urine pH 7.0, Ur Specific [place] 1.020, Urine Protein 3+, Urine Glucose (UA) Trace, Urine Ketones 1+, Urine Blood 1+, Urine Nitrate Positive, Urine Bilirubin 2+ A, Urine Urobilinogen >=8.0, Ur Leukocyte Esterase Trace, Urine WBC 10-20, Ur Squamous Epith Cells Occasional, Urine Bacteria 2+, Urine Sperm 3+ 01/27/18 16:44: Stool Occult Blood Negative 01/27/18 18:00: Lactate 0.7 01/28/18 06:30: WBC 11.4 H D, RBC 4.24 L, Hgb 12.4 L D, Hct 37.6 L, MCV 88.8, MCH 29.3, MCHC 33.0, RDW 14.0, Plt Count 251, MPV 7.4, Neut % (Auto) 75.3, Lymph % (Auto) 17.6, [place] % (Auto) 6.6, Eos % (Auto) 0.3, Baso % (Auto) 0.2, Neut # (Auto) 8.6 H, Lymph # (Auto) 2.0, [place] # (Auto) 0.8, Eos # (Auto) 0.0, Baso # (Auto) 0.0 01/28/18 06:30: Sodium 138, Potassium 4.0, Chloride 104, Carbon Dioxide 28, Anion Gap 10.0, BUN 6 L, Creatinine 0.76, Estimated Creat Clear 110, Estimated GFR 111, Est GFR ( Amer) 134, Glucose 94, Calcium 8.6 Medical History: Reports:: Chronic Obstructive Pulmonary Disease (COPD), Pulmonary Embolism Denies:: Cancer, Diabetes Mellitus Type 1, Diabetes Mellitus Type 2, MRSA, Seizures Assessment and Plan (1) Acute prostatitis Current visit: Yes Status: Acute Category: Medical Code(s): N41.0 - Acute prostatitis (2) Tobacco use disorder Current visit: Yes Status: Acute Category: Medical Code(s): F17.200 - Nicotine dependence, unspecified, uncomplicated - Assessment and plan all Dx Assessment and Plan for all problems:: BASED ON PATIENT'S FACTORS, RECOMMEND STARTING WITH TOBRAMYCIN 400 MG Q24H AT THIS TIME. WILL OBTAIN LEVEL TOMORROW TO DETERMINE CLEARANCE. PHARMACY WILL FOLLOW DAILY AND ADJUST APPROPRIATE. DEISY BURCH, ALEXIAD
--- NOTE | 2018-01-28 14:42 | Pharmacy Consult Notes ---
- Pharmacy Consult Date: 01/28/18 Time: 14:30 Referring provider: DR. PUGH Reason for Consult:: TOBRAMYCIN LEVEL Allergies and ADEs:: Allergies Allergy/AdvReac Type Severity Reaction Status Date / Time Penicillins Allergy Severe Rash Verified 11/13/17 08:22 tramadol Allergy Verified 01/28/18 01:38 Home Medications:: Home Medications Medication Instructions Recorded Confirmed Type Gabapentin [Gabapentin 100mg Cap] 300 mg PO TID 11/24/17 01/28/18 History Height: 1.75 m Weight: 63.503 kg Laboratory Results:: Laboratory Results - last 24 hr 01/27/18 16:00: WBC 18.8 H, RBC 4.80, Hgb 14.2, Hct 42.1, MCV 87.6, MCH 29.7, MCHC 33.9, RDW 13.9, Plt Count 286, MPV 7.1 L, Neut % (Auto) 83.3 H, Lymph % (Auto) 10.8, [place] % (Auto) 5.6, Eos % (Auto) 0.0 L, Baso % (Auto) 0.2, Neut # (Auto) 15.7 H, Lymph # (Auto) 2.0, [place] # (Auto) 1.1 H, Eos # (Auto) 0.0, Baso # (Auto) 0.0, Total Counted 100, Neutrophils % (Manual) 83 H, Band Neutrophils % 1.0, Lymphocytes % (Manual) 7 L, Atypical Lymphs % 2.0, Monocytes % (Manual) 7, Platelet Estimate Normal, RBC Morphology Normal 01/27/18 16:00: Lactate 2.2 H 01/27/18 16:00: Ammonia 11 L 01/27/18 16:00: Amylase 19 L, Lipase 43 L 01/27/18 16:00: Sodium 132 L, Potassium 3.9, Chloride 93 L, Carbon Dioxide 28, Anion Gap 10.7, BUN 7, Creatinine 0.75, Estimated Creat Clear 112, Estimated GFR 113, Est GFR ( Amer) 136, Glucose 109 H, Calcium 9.1, Total Bilirubin 0.9, AST 12 L, ALT 33, Alkaline Phosphatase 121 H, Total Protein 8.2, Albumin 3.4, Globulin 4.8 H, Albumin/Globulin Ratio 0.7 L 01/27/18 16:38: Urine Color Yellow, Urine Appearance Cloudy, Urine pH 7.0, Ur Specific [place] 1.020, Urine Protein 3+, Urine Glucose (UA) Trace, Urine Ketones 1+, Urine Blood 1+, Urine Nitrate Positive, Urine Bilirubin 2+ A, Urine Urobilinogen >=8.0, Ur Leukocyte Esterase Trace, Urine WBC 10-20, Ur Squamous Epith Cells Occasional, Urine Bacteria 2+, Urine Sperm 3+ 01/27/18 16:44: Stool Occult Blood Negative 01/27/18 18:00: Lactate 0.7 01/28/18 06:30: WBC 11.4 H D, RBC 4.24 L, Hgb 12.4 L D, Hct 37.6 L, MCV 88.8, MCH 29.3, MCHC 33.0, RDW 14.0, Plt Count 251, MPV 7.4, Neut % (Auto) 75.3, Lymph % (Auto) 17.6, [place] % (Auto) 6.6, Eos % (Auto) 0.3, Baso % (Auto) 0.2, Neut # (Auto) 8.6 H, Lymph # (Auto) 2.0, [place] # (Auto) 0.8, Eos # (Auto) 0.0, Baso # (Auto) 0.0 01/28/18 06:30: Sodium 138, Potassium 4.0, Chloride 104, Carbon Dioxide 28, Anion Gap 10.0, BUN 6 L, Creatinine 0.76, Estimated Creat Clear 110, Estimated GFR 111, Est GFR ( Amer) 134, Glucose 94, Calcium 8.6 01/28/18 11:08: Random Tobramycin 0.5 Medical History: Reports:: Chronic Obstructive Pulmonary Disease (COPD), Pulmonary Embolism Denies:: Cancer, Diabetes Mellitus Type 1, Diabetes Mellitus Type 2, MRSA, Seizures Assessment and Plan (1) Acute prostatitis Current visit: Yes Status: Acute Category: Medical Code(s): N41.0 - Acute prostatitis (2) Tobacco use disorder Current visit: Yes Status: Acute Category: Medical Code(s): F17.200 - Nicotine dependence, unspecified, uncomplicated - Assessment and plan all Dx Assessment and Plan for all problems:: PATIENT'S TOBRAMYCIN LEVEL WAS 0.5 MCG/ML TODAY 14 HOURS POST INFUSION. RECOMMEND CONTINUING WITH CURRENT DOSE AND INTERVAL AT THIS TIME. PHARMACY WILL FOLLOW DAILY AND ADJUST APPROPRIATE. DEISY BURCH, PHARMD
--- NOTE | 2018-01-28 20:11 | Discharge Summary ---
General - General Admission date:: 01/27/18 Discharge date: 01/28/18 HPI HPI: this wm has lower abd pain which has been proressive over the last few days with pain and dec urination w/o hematuria -kate Luo is a 47 years old white male smoker with a history of pneumothorax and multiple chest surgeries. He is due for colonoscopy and prostate check. He had right indirect inguinal hernia for the past 2 years. Days ago he developed lower abdominal pain, fever and dark urine. He presented today for evaluation. pt with abn prostate exam in ed with abn urine and was admitted for ivf and abx and pain control Hospital Course Hospital Course: pt did better with iv abx and fluids and pain improved and urinary sx - no def abn with cultures and leukocytosis and lactic acid improved - pt for follow up and culture for culture results was d/c to see urology as op and see pcp Objective Vital signs: Temp Pulse Resp BP Pulse Ox 98.9 F 76 17 96/53 L 100 01/28/18 15:27 01/28/18 15:27 01/28/18 15:27 01/28/18 15:27 01/28/18 15:27 no acute distress, thin - *Routine HEENT Exam Head: Present: normocephalic Eye: Present: EOMI, PERRL ENT: Present: mucous membranes moist - *Routine Neck Exam Present: supple - *Routine Respiratory Exam Present: CTA bilaterally - *Routine Cardiovascular Exam Present: RRR. Absent: murmur - *Routine Abdominal Exam Present: soft - *Routine Extremities Exam Present: full ROM - Routine Back/Spine/Pelvis Exam Back/Spine: Absent: CVA tenderness - *Routine Skin Exam Present: intact - *Routine Neurological Exam Present: alert, CN II-XII intact - Routine Psychiatric Exam Present: normal affect Results Labs on day of discharge: Labs from last 24 hours 01/28/18 01/28/18 01/28/18 11:08 06:30 06:30 WBC 11.4 H D RBC 4.24 L Hgb 12.4 L D Hct 37.6 L MCV 88.8 MCH 29.3 MCHC 33.0 RDW 14.0 Plt Count 251 MPV 7.4 Neut % (Auto) 75.3 Lymph % (Auto) 17.6 [place] % (Auto) 6.6 Eos % (Auto) 0.3 Baso % (Auto) 0.2 Neut # (Auto) 8.6 H Lymph # (Auto) 2.0 [place] # (Auto) 0.8 Eos # (Auto) 0.0 Baso # (Auto) 0.0 Sodium 138 Potassium 4.0 Chloride 104 Carbon Dioxide 28 Anion Gap 10.0 BUN 6 L Creatinine 0.76 Estimated Creat Clear 110 Estimated GFR 111 Est GFR ( Amer) 134 Glucose 94 Lactate Calcium 8.6 Random Tobramycin 0.5 01/27/18 18:00 WBC RBC Hgb Hct MCV MCH MCHC RDW Plt Count MPV Neut % (Auto) Lymph % (Auto) [place] % (Auto) Eos % (Auto) Baso % (Auto) Neut # (Auto) Lymph # (Auto) [place] # (Auto) Eos # (Auto) Baso # (Auto) Sodium Potassium Chloride Carbon Dioxide Anion Gap BUN Creatinine Estimated Creat Clear Estimated GFR Est GFR ( Amer) Glucose Lactate 0.7 Calcium Random Tobramycin Preliminary micro results at discharge 01/27/18 16:38 Urine Culture - Preliminary Urine,Clean Catch DS: Diagnosis - Discharge Diagnosis (1) Acute prostatitis Status: Acute (2) Tobacco use disorder Status: Acute Discharge Plan - Patient Discharge Instructions ACTIVITY: Continue current activity DIET: continue same diet - Follow up Plan Disposition: Home, Self-Mcc Medications: Home Medications Medication Instructions Recorded Confirmed Type Gabapentin [Gabapentin 100mg Cap] 300 mg PO TID 11/24/17 01/28/18 History Prescriptions/Medication Reconciliation: New levoFLOXacin [Levaquin 500mg tab] 500 mg PO DAILY #10 tab Nicotine [Nicoderm 21mg/24hr patch] 21 mg TD DAILYP PRN patch.td24 PRN Reason: Nicotine Cravings Continue acetaminophen 300 mg-codeine 30 mg tablet 1 tab PO BID PRN #60 tab PRN Reason: pain Gabapentin [Gabapentin 100mg Cap] 300 mg PO TID
== END 2018-01-28 20:38 | disposition home or self-care (01) ==
LOC: ER 15:41 → 2ND 15:41 → INTOOBSV 20:21 → OBSVTOIN 20:21 → 2ND 20:22
PROVIDERS: ADMIT Internal Medicine Adolescent Medicine; ATTEND Emergency Medicine

== ENCOUNTER → 2018-02-15 14:25 | Outpatient (POV) | payer SELFPAY | PROVIDERS: Visit Provider Neurological Surgery | DX: Z00.00 Encounter for general adult medical examination without abnormal findings (principal) ==

== ENCOUNTER → 2018-06-25 07:15 | Outpatient (CLI) | payer MEDICAID, SELFPAY ==
--- NOTE | 2018-06-25 07:17 | NM_ITS ---
CARDIOLITE SPECT MYOCARDIAL PERFUSION LEXISCAN, REST AND STRESS: History: Tobacco use, chest pain, shortness of breath Procedure: Patient received a 0.4 mg of intravenous Lexiscan, resting heart rate was 76 beats per resting blood pressure 144/90, with Lexiscan maximum heart rate achieved is 96 bpm which is less than 85% of the maximum predicted heart rate, and the blood pressure was 142/88. With Lexiscan patient denied complained of chest pain or shortness of breath. Electrocardiogram: Resting electrocardiogram showed sinus rhythm rightward axis, with Lexiscan there is less than 1.[address] segment depression noted from the baseline EKG. The EKG portion of the Lexiscan Myoview is nondiagnostic. Cardiac stress and resting SPECT images: Cardiac stress and resting SPECT images were obtained using technetium 99 Myoview 31.3 mCi at rest and 10.2 mCi at rest. Gated SPECT further analysis of segmental wall motion and calculation of ejection fraction also done. Cardiac stress and resting SPECT images show uniform myocardial activity without segmental perfusion abnormality, computer derived ejection fraction is 56% no regional wall motion abnormality, right ventricle is normal size and contractility. Conclusion: 1. The EKG portion of the Lexiscan Myoview is nondiagnostic. 2. No Scintigraphic evidence of reversible ischemia seen, computer derived ejection fraction is 56% with no regional wall motion abnormality right ventricle is normal size and contractility. 3. Normal Lexiscan Myoview study
--- NOTE | 2018-06-25 07:45 | HMH.ITSHM ---
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 []GABAPENTIN TYLENOL 3
== END ==
PROVIDERS: PCP Emergency Medicine; Visit Provider Emergency Medicine
DX: R07.9 Chest pain, unspecified (principal)
CPT/HCPCS: 78452; 93017; A9502; J2785

== ENCOUNTER → 2019-02-11 11:07 | Outpatient (CLI) | payer MEDICAID, SELFPAY ==
[2019-02-11 11:35] LABS: Basophils % 0.4 % (0.1-2.0); Eosinophils # 0.1 K/mm3 (0.0-0.4); Eosinophils % 0.9 % (0.1-12.0); Hemoglobin 15.1 g/dL (14.1-18.0); Lymphocytes # 2.2 K/mm3 (0.7-4.5); Lymphocytes % 19.6 % (10-50); Mean Corpuscular HGB Conc 33.7 g/dL (31.8-35.4); Mean Corpuscular Hemoglobin 28.9 pg (27.0-31.2); Mean Corpuscular Volume 85.9 fl (80-94); Mean Platelet Volume 7.8 fl (7.4-10.4); Monocytes # 0.5 K/mm3 (0.1-1.0); Monocytes % 4.1 % (1.7-9.3); Neutrophils # 8.4 K/mm3 (1.8-7.8); Neutrophils % 75.1 % (37.0-80.0); Platelet Count 346 K/mm3 (142-424); Red Blood Count 5.24 M/mm3 (4.60-6.20); Red Cell Distribution Width 13.7 % (11.5-17.5); White Blood Count 11.2 K/mm3 (4.8-10.8)
[2019-02-11 11:47] LABS: INR 1.01 (0.9-1.1); Prothrombin Time 10.5 seconds (9.4-11.8)
[2019-02-11 13:01] LABS: Alanine Aminotransferase 68 U/L (12-78); Albumin Level 3.9 gm/dL (3.4-5.0); Alkaline Phosphatase 144 U/L (46-116); Anion Gap 15.3 mEq/L (5-15); Aspartate Amino Transferase 21 U/L (15-37); Bilirubin,Total 0.4 mg/dL (0.2-1.0); Blood Urea Nitrogen 6 mg/dL (7-18); Calcium 9.5 mg/dL (8.5-10.1); Carbon Dioxide 28 mmol/L (21.0-32.0); Chloride 100 mmol/L (98-107); Creatinine,Serum 0.81 mg/dL (0.70-1.30); Estimated Glomerular Filt Rate 103 ml/min (>60); GFR (African American) 124 ML/MIN (>60); Globulin 4.1 gm/dl (1.3-3.2); Glucose 83 mg/dL (74-106); Potassium 4.3 mmoL/L (3.5-5.1); Sodium 139 mmol/L (136-145)
[2019-02-12 05:41] LABS: Hep A Ab, IgM Negative (Negative); Hepatitis B Core Antibody IgM Negative (Negative); Hepatitis B Surface Antigen Negative (Negative)
[2019-02-12 16:45] LABS: Hepatitis C Antibody >11.0 s/co ratio (0.0-0.9)
== END ==
PROVIDERS: Visit Provider Surgery
DX: K40.90 Unilateral inguinal hernia, without obstruction or gangrene, not specified as recurrent (principal); B19.20 Unspecified viral hepatitis C without hepatic coma
CPT/HCPCS: 36415; 80053; 80074; 85025; 85610

== ENCOUNTER 2019-06-21 20:59 | Emergency (ER) | payer MEDICAID, SELFPAY ==
[2019-06-21 21:16] VITALS: BP 149/88; PULSE 114; RESP 16; TEMP 37.1; O2SAT 98; BMI 19.9
--- NOTE | 2019-06-21 21:20 | XR_ITS ---
PROCEDURE: XR WRIST LT MIN 3V CLINICAL INDICATION: LEFT INJURY WRIST Posttraumatic pain COMPARISON: No exams were available for comparison FINDINGS: Calcification is present along the mid and dorsal aspect of the wrist. This could be seen with avulsion fracture of the triquetrum. The calcific density is fairly well-circumscribed however. This could represent an old injury or soft tissue calcification. Consider CT of the wrist for further evaluation. No other significant anomalies. IMPRESSION: Unusual calcification along the dorsal and mid aspect of the wrist which could be due to avulsion fracture of the triquetrum versus soft tissue calcification. There does appear to be some soft tissue swelling at this region. Please correlate with patient's area of pain and tenderness. CT of the wrist may provide further evaluation. Dictated by: Aquilino Ahumada MD 06/22/2019 07:09 Electronically signed by Aquilino Ahumada MD in [place] 06/22/2019 07:09
--- NOTE | 2019-06-21 22:00 | HMH.EDUPEXT ---
ED Disposition Clinical Impression: Fracture of wrist Disposition: Home, Self-Care Condition on Discharge: Good Referrals: Frederick Alvarado MD [Primary Care Provider] - - Critical Care Critical Care Time: No Attestation: On 06/21/19, the high probability of a clinically significant, sudden or life threatening deterioration of the following system(s) required my full and direct attention, intervention and personal management. The time I documented below is in addition to time spent performing reported procedures but includes the following listed in this critical care notation. Medical Decision Making - Medical Records Medical records reviewed: Yes: I reviewed the patient's medical records. - Fredrick Inquiry Pt receiving controlled substance: No Vital Signs: 06/21/19 21:16 Temperature 98.7 F Temperature Source Oral Pulse Rate [Right Brachial] 114 H Respiratory Rate 16 Blood Pressure [Right Arm] 149/88 H Blood Pressure Mean [Right Arm] 108 Blood Pressure Source [Right Arm] Automatic Cuff Blood Pressure Position [Right Arm] Sitting 02 Sat by Pulse Oximetry 98 Oxygen Delivery Method Room Air - Lab Data Lab results reviewed: Yes: I reviewed the patient's lab results. Orders (Tests/Meds): ED MEDICATIONS Discontinued Medications Generic Name Dose Route Start Last Admin Trade Name Freq PRN Reason Stop Dose Admin Acetaminophen/Codeine Phosphate 1 ana 06/21/19 22:03 Acetaminophen W/Codeine #3 Take Home Pack (6) PO 06/21/19 22:04 ONCE ONE ORDERS Category Date Time Status XR wrist LT min 3V Stat Exams 06/21/19 21:20 Taken - Radiology Data #1 Image(s): Wrist Preliminary Findings: Abnormal (Patient has a small buckle fracture of the distal radius on the left side) Upper Extremity HPI - General Chief Complaint: Extremity Injury, Upper Stated Complaint: AO 0222 injured L wrist Time Seen by Provider: 06/21/19 22:00 Mode of Arrival: Ambulatory Source of Information: Patient Limitations: No Limitations Description of Symptoms (Recalled from ER Triage Doc. by RN): PATIENT REPORTS HE WAS MOVING A GRILL AND HURT HIS LEFT WRIST. PATIENT REPORS HE TOOK SOME IBUPROFEN AND ALEVE 2 HOURS AGO TO RELIEVE THE PAIN. - History of Present Illness HPI narrative: 49-year-old male presents the ED after a fall 2 days ago. He states that he landed on his left wrist and is complaining about pain on the distal part of the lateral side of his forearm. Patient states the pain is 5 out of 10 and sharp. He denies any acutely exacerbating factors alleviating factors include rest and nonmovement. Patient also denies any other trauma. Patient denies any recent nausea vomiting diarrhea patient denies any recent fever shakes or chills. - Related Data Home Medications Medication Instructions Recorded Confirmed buprenorphine 8 mg-naloxone 2 mg 1 tab SUBLINGUAL BID tab 01/08/19 05/06/19 sublingual tablet tamsulosin 0.4 mg capsule 0.4 mg PO DAILY 02/11/19 05/06/19 Previous Rx's Medication Instructions Recorded benzonatate 100 mg capsule 100 mg PO TID PRN #30 cap 05/06/19 levofloxacin 500 mg tablet 500 mg PO DAILY #7 tab 05/06/19 prednisone 20 mg tablet 20 mg PO BID 5 Days #10 tab 05/06/19 Allergies Allergy/AdvReac Type Severity Reaction Status Date / Time Penicillins Allergy Severe Rash Verified 05/06/19 09:15 tramadol Allergy Verified 05/06/19 09:15 [facility] History - Hepatitis A Screen Drug use history?: No High risk sexual behaviors?: No History of sexually transmitted infection?: No Currently employed?: No Childcare worker?: No Do you have indoor plumbing?: Yes Do you have electricity?: Yes Attestation statement:: This patient has been screened for Hepatitis A risk factors. I have reviewed the patient's past medical history: Yes Medical History: Reports:: Chronic Obstructive Pulmonary Disease (COPD), Pulmonary Embolism Denies:: Cancer, Diabetes Mellitus Type 1, D
[2019-06-21 22:13] VITALS: BP 148/85; PULSE 109; RESP 16; TEMP 37; O2SAT 99
== END 2019-06-21 22:16 | disposition home or self-care (01) ==
PROVIDERS: Emergency Provider Family Medicine; PCP Emergency Medicine
DX: S52.502A Unspecified fracture of the lower end of left radius, initial encounter for closed fracture (principal); W01.0XXA Fall on same level from slipping, tripping and stumbling without subsequent striking against object, initial encounter; Y92.019 Unspecified place in single-family (private) house as the place of occurrence of the external cause; J44.9 Chronic obstructive pulmonary disease, unspecified; D64.9 Anemia, unspecified; F17.210 Nicotine dependence, cigarettes, uncomplicated; Z88.0 Allergy status to penicillin; Z88.5 Allergy status to narcotic agent
CPT/HCPCS: 29125; 73110; 99283

== ENCOUNTER 2019-06-23 13:47 | Emergency (ER) | payer MEDICAID, SELFPAY ==
--- NOTE | 2019-06-23 14:00 | HMH.EDUTC ---
[facility] Disposition Clinical Impression: Left wrist pain, Left hand pain Disposition: Home, Self-Care Condition on Discharge: Good Instructions: Wrist Fracture, DI for Wrist Fracture Additional Instructions: Rest the extremity, apply ice for 15 minutes as tolerated three or four times per day, Wear splint but make sure it's not getting too tight, Elevate the extremity as tolerated while you are resting. Take ibuprofen for pain. I sent in a prescription to your pharmacy. Follow up with Dr. Murray. I put in a referral and called him about you, but you need to call his office in the morning to see exactly when he can see you in his office. Follow up with your regular doctor. GO TO THE ER FOR ANY WORSENING SYMPTOMS Prescriptions: Ibuprofen [Ibuprofen 800mg Tablet] 800 mg PO Q8HP PRN #30 tab PRN Reason: Moderate Pain Transmission Status: Received by [employer] Referrals: Frederick Alvarado MD [Primary Care Provider] - Vu Murray MD [Staff Physician] - Time of Disposition: 15:13 Medical Decision Making - Medical Records Medical records reviewed: No: I reviewed the patient's medical records. - Fredrick Inquiry Pt receiving controlled substance: No Vital Signs: 06/23/19 14:06 06/23/19 15:00 Temperature 98.2 F 98.2 F Temperature Source Oral Pulse Rate 109 H Pulse Rate [Right Brachial] 109 H Respiratory Rate 22 22 Blood Pressure 128/90 Blood Pressure [Right Arm] 128/90 Blood Pressure Mean [Right Arm] 102 Blood Pressure Source [Right Arm] Automatic Cuff Blood Pressure Position [Right Arm] Sitting 02 Sat by Pulse Oximetry 100 Oxygen Delivery Method Room Air Medical Decision Narrative: I called and spoke to Dr. Murray regarding this patient. He is to call Dr. Murray's office in the morning to follow up. [facility] HPI - General Stated complaint: LEFT WRIST PAIN ao [id number] Time Seen by Provider: 06/23/19 14:00 - History of Present Illness Provider Complaint: He is here with right wrist hand and swelling. He states that several days ago he was helping carry a heavy barbeque grill when his friend dropped it. The grill pinned his right hand and wrist back for several minutes until he could get it off of him. He was in the ER night before last with these symptoms. An x-ray of the wrist was taken. He states the wrist was spinted then and he was told to f/u with his pcp on Monday. Over this weekend, his wrist and hand has continued to swell. He took the splint off. He states that he called the ER about his continued pain and swelling. He states that he was told to come to the [facility] for reevaluation. - Related Data Home Medications Medication Instructions Recorded Confirmed buprenorphine 8 mg-naloxone 2 mg 1 tab SUBLINGUAL BID tab 01/08/19 05/06/19 sublingual tablet tamsulosin 0.4 mg capsule 0.4 mg PO DAILY 02/11/19 05/06/19 Previous Rx's Medication Instructions Recorded benzonatate 100 mg capsule 100 mg PO TID PRN #30 cap 05/06/19 levofloxacin 500 mg tablet 500 mg PO DAILY #7 tab 05/06/19 prednisone 20 mg tablet 20 mg PO BID 5 Days #10 tab 05/06/19 Ibuprofen [Ibuprofen 800mg 800 mg PO Q8HP PRN #30 tab 06/23/19 Tablet] Allergies Allergy/AdvReac Type Severity Reaction Status Date / Time Penicillins Allergy Severe Rash Verified 05/06/19 09:15 tramadol Allergy Verified 05/06/19 09:15 [facility] History - Hepatitis A Screen Attestation statement:: This patient has been screened for Hepatitis A risk factors. I have reviewed the patient's past medical history: Yes Medical History: Reports:: Chronic Obstructive Pulmonary Disease (COPD), Pulmonary Embolism Denies:: Cancer, Diabetes Mellitus Type 1, Diabetes Mellitus Type 2, MRSA, Seizures Other Medical History: Reports: Anemia, Arthritis, Other. Denies: Blood Transfusion Reaction Comment: Back Pain Other Surgeries: Yes: Hernia Repair, Other Amputation: No Fractures: Yes (r arm) Comment: RT arm - Social
[2019-06-23 14:06] VITALS: BP 128/90; PULSE 109; RESP 22; TEMP 36.8; O2SAT 100; BMI 20.7
--- NOTE | 2019-06-23 14:15 | XR_ITS ---
PROCEDURE: XR HAND LT MIN 3V CLINICAL INDICATION: INJURY Posttraumatic pain COMPARISON: XR WRIST LT MIN 3V from 06/21/2019 FINDINGS: There is a defect at the tuft of the distal phalanx of the 4th finger consistent with an old injury. No acute hand fracture is evident. There remains a bony fragment along the dorsal and mid aspect of the wrist which could represent sequela from an avulsion fracture of the triquetrum. CT may confirm. There are degenerative changes at the 1st metacarpal-carpal joint. No other significant anomalies are evident. IMPRESSION: Bony fragment at the dorsal and mid aspect of the wrist which could be due to acquire triquetrum avulsion fracture age indeterminate. CT may provide further evaluation. Dictated by: Aquilino Ahumada MD 06/23/2019 15:04 Electronically signed by Aquilino Ahumada MD in [place] 06/23/2019 15:04
[2019-06-23 15:00] VITALS: BP 128/90; PULSE 109; RESP 22; TEMP 36.8; O2SAT 100
== END 2019-06-23 15:05 | disposition home or self-care (01) ==
PROVIDERS: Emergency Provider Nurse Practitioner Family; PCP Emergency Medicine
DX: M25.532 Pain in left wrist (principal); J44.9 Chronic obstructive pulmonary disease, unspecified; Z88.0 Allergy status to penicillin; F17.210 Nicotine dependence, cigarettes, uncomplicated; Z79.899 Other long term (current) drug therapy
CPT/HCPCS: 29125; 73130; 99203

== ENCOUNTER → 2019-06-25 11:47 | Outpatient (CLI) | payer MEDICAID, SELFPAY ==
--- NOTE | 2019-06-25 11:52 | CT_ITS ---
PROCEDURE: CT WRIST LT WO CON CLINICAL HISTORY: Wrist Injury/Triquetrum FX Pain following injury, follow-up possible avulsion fracture COMPARISON: XR WRIST LT MIN 3V from 06/21/2019 TECHNIQUE: Axial images obtained with sagittal and coronal reformats. All CT scans at the facility use one or more dose reduction, viz: automated exposure control, ma/kV adjustment per patient size (including targeted exams where dose is matched to indication, i.e. head), or iterative reconstruction technique. FINDINGS: There is a well-circumscribed curvilinear calcific density dorsal to the triquetrum suspicious for an old avulsion fracture. The bony margins are well-circumscribed. There also appears to be a defect within the dorsal aspect of the triquetrum suggesting that that is the donor site. There are some subarticular cystic changes of the triquetrum. No other fractures are evident. There are minimal osteoarthritic changes of the radiocarpal joint IMPRESSION: The findings are compatible with a at avulsion fracture of the triquetrum which appears old. Please correlate with clinical parameters Dictated by: Aquilino Ahumada MD 06/25/2019 12:45 Electronically signed by Aquilino Ahumada MD in [place] 06/25/2019 12:45
== END ==
PROVIDERS: PCP Emergency Medicine; Visit Provider Orthopaedic Surgery
DX: S62.102A Fracture of unspecified carpal bone, left wrist, initial encounter for closed fracture (principal)
CPT/HCPCS: 73200

== ENCOUNTER 2019-09-24 20:09 | Emergency (ER) | payer MEDICAID, SELFPAY ==
[2019-09-24 20:14] VITALS: BP 127/69; PULSE 130; RESP 18; TEMP 38.2; O2SAT 96; BMI 21.6
--- NOTE | 2019-09-24 20:22 | HMH.EDGENADL ---
ED Disposition Clinical Impression: Heat exhaustion Qualifiers: Encounter type: initial encounter Qualified Code(s): T67.5XXA - Heat exhaustion, unspecified, initial encounter Disposition: Home, Self-Care Condition on Discharge: Good Instructions: DI for Heat Exhaustion and Heat Stroke Additional Instructions: Rest in a cool environment and drink plenty of fluids tonight. Avoid heat exposure for the next few days. Zithromax as prescribed. Quarantine yourself until you get your COVID-19 test result. Return to the emergency room if symptoms worsen. Prescriptions: Azithromycin [Zithromax 250mg tab] 250 mg PO DAILY #4 tab Transmission Status: Received by [employer] Referrals: Frederick Alvarado MD [Primary Care Provider] - - Critical Care Critical Care Time: No Attestation: On , the high probability of a clinically significant, sudden or life threatening deterioration of the following system(s) required my full and direct attention, intervention and personal management. The time I documented below is in addition to time spent performing reported procedures but includes the following listed in this critical care notation. Medical Decision Making - Medical Records Medical records reviewed: Yes: I reviewed the patient's medical records. - Fredrick Inquiry Pt receiving controlled substance: No Vital Signs: 09/24/19 20:14 09/24/19 20:38 09/24/19 21:46 Temperature 100.8 F H Temperature Source Oral Pulse Rate [Right] 130 H 119 H 114 H Respiratory Rate 18 20 18 Blood Pressure [Right Arm] 127/69 130/67 105/57 L Blood Pressure Mean [Right Arm] 88 88 73 Blood Pressure Source [Right Arm] Automatic Cuff Blood Pressure Position [Right Arm] Supine 02 Sat by Pulse Oximetry 96 96 97 Oxygen Delivery Method Room Air Room Air Room Air 09/24/19 21:48 Temperature 99.5 F Temperature Source Oral Pulse Rate [Right] Respiratory Rate Blood Pressure [Right Arm] Blood Pressure Mean [Right Arm] Blood Pressure Source [Right Arm] Blood Pressure Position [Right Arm] 02 Sat by Pulse Oximetry Oxygen Delivery Method - Lab Data Lab results reviewed: Yes: I reviewed the patient's lab results. Lab Results 09/24/19 20:12: WBC 7.8, RBC 4.29 L, Hgb 12.3 L, Hct 35.1 L, MCV 81.8, MCH 28.7, MCHC 35.1, RDW 14.9, Plt Count 209, MPV 7.6, Neut % (Auto) 88.7 H, Lymph % (Auto) 8.3 L, [place] % (Auto) 2.1, Eos % (Auto) 0.7, Baso % (Auto) 0.1, Neut # (Auto) 6.9, Lymph # (Auto) 0.6 L, [place] # (Auto) 0.2, Eos # (Auto) 0.1, Baso # (Auto) 0.0, Total Counted 100, Neutrophils % (Manual) 91 H, Lymphocytes % (Manual) 9 L, Platelet Estimate Normal, RBC Morphology Normal 09/24/19 20:12: Sodium 135 L, Potassium 3.8, Chloride 102, Carbon Dioxide 23, Anion Gap 13.8, BUN 10, Creatinine 0.60 L, Estimated Creat Clear 127, Estimated GFR 144, Est GFR ( Amer) 175, Glucose 101 H, Calcium 9.0, Total Bilirubin 0.8, AST 19, ALT 9 L, Alkaline Phosphatase 92, Total Protein 6.9, Albumin 3.8, Globulin 3.1, Albumin/Globulin Ratio 1.2, Amylase 49, Lipase 12 L 09/24/19 20:12: Lactate 1.3 09/24/19 21:15: Urine Color Yellow, Urine Appearance Clear, Urine pH 6.0, Ur Specific [place] 1.020, Urine Protein Negative, Urine Glucose (UA) Negative, Urine Ketones Negative, Urine Blood Negative, Urine Nitrate Negative, Urine Bilirubin Negative, Urine Urobilinogen 0.2, Ur Leukocyte Esterase Negative, Urine WBC Occasional, Ur Squamous Epith Cells Occasional, Urine Bacteria Trace 09/24/19 21:15: Urine Opiates Screen Negative, Urine Methadone Screen Negative, Ur Barbituates Screen Negative, Ur Phencyclidine Scrn Negative, Ur Amphetamines Screen Negative, U Benzodiazepines Scrn Negative, Urine Cocaine Screen Negative, U Marijuana (THC) Screen Negative Result diagrams: 09/24/19 20:12 09/24/19 20:12 Orders (Tests/Meds): ED MEDICATIONS Discontinued Medications Generic Name Dose Route Start Last Admin Trade Name Freq PRN Reason Stop Dose Admin Acetaminophe
--- NOTE | 2019-09-24 20:30 | XR_ITS ---
PROCEDURE: XR CHEST PORTABLE CLINICAL HISTORY: fever, chills COMPARISON: CXR2V XR chest 2V from 01/27/2018 FINDINGS: Cardiac size upper limits of normal. There are atelectatic changes versus patchy infiltrate in the right lung base. The remaining lungs are clear. There is mild prominence of the eduar on the left but the patient is slightly rotated. IMPRESSION: Right basilar atelectasis or infiltrate Dictated by: Aquilino Ahumada MD 09/25/2019 06:59 Electronically signed by Aquilino Ahumada MD in [place] 09/25/2019 06:59
[2019-09-24 20:38] VITALS: BP 130/67; PULSE 119; RESP 20; O2SAT 96
[2019-09-24 20:39] LABS: Basophils % 0.1 % (0.1-2.0); Eosinophils # 0.1 K/mm3 (0.0-0.4); Eosinophils % 0.7 % (0.1-12.0); Hematocrit 35.1 % (42.0-52.0); Hemoglobin 12.3 g/dL (14.1-18.0); Lymphocytes # 0.6 K/mm3 (0.7-4.5); Lymphocytes % 8.3 % (10-50); Mean Corpuscular HGB Conc 35.1 g/dL (31.8-35.4); Mean Corpuscular Hemoglobin 28.7 pg (27.0-31.2); Mean Corpuscular Volume 81.8 fl (80-94); Mean Platelet Volume 7.6 fl (7.4-10.4); Monocytes # 0.2 K/mm3 (0.1-1.0); Monocytes % 2.1 % (1.7-9.3); Neutrophils # 6.9 K/mm3 (1.8-7.8); Neutrophils % 88.7 % (37.0-80.0); Platelet Count 209 K/mm3 (142-424); Red Blood Count 4.29 M/mm3 (4.60-6.20); Red Cell Distribution Width 14.9 % (11.5-17.5); White Blood Count 7.8 K/mm3 (4.8-10.8)
[2019-09-24 20:45] LABS: Chloride 102 mmol/L (98-107); Potassium 3.8 mmoL/L (3.5-5.1); Sodium 135 mmol/L (136-145)
[2019-09-24 20:48] LABS: Alanine Aminotransferase 9 U/L (12-78); Alkaline Phosphatase 92 U/L (38-126); Amylase 49 U/L (30-110); Anion Gap 13.8 mEq/L (5-15); Aspartate Amino Transferase 19 U/L (17-59); Bilirubin,Total 0.8 mg/dl (0.2-1.3); Blood Urea Nitrogen 10 mg/dl (9-20); Carbon Dioxide 23 mmol/L (22.0-30.0); Creatinine Clearance Estimated 127 mL/min (50-200); Estimated Glomerular Filt Rate 144 ml/min (>60); GFR (African American) 175 ML/MIN (>60); Glucose 101 mg/dl (74-100); Lactic Acid 1.3 mmol/L (0.7-2.1)
[2019-09-24 20:49] LABS: Albumin Level 3.8 g/dl (3.5-5.0); Albumin/Globulin Ratio 1.2 (1.1-1.8); Globulin 3.1 g/dL (1.3-3.2); Lipase 12 U/L (23-300); Total Protein,Serum 6.9 g/dl (6.3-8.2)
[2019-09-24 20:55] LABS: MANUAL DIFFERENTIAL MANUAL DIFFERENTIAL (MANUAL DIFF)
--- NOTE | 2019-09-24 20:56 | PC.NURSE ---
pt provided with urinal for urine sample
[2019-09-24 21:33] LABS: Microscopic, Urine URINE MICROSCOPIC (MICROSCOPIC)
[2019-09-24 21:35] LABS: Appearance,Urine CLEAR (Clear); Bilirubin,Urine Negative (Negative); Blood, Urine Negative (Negative); Color,Urine YELLOW (Yellow); Glucose,Urine (UA) Negative (Negative); Ketones,Urine Negative (Negative); Leukocyte Esterase,Urine Negative (Negative); Nitrate,Urine Negative (Negative); Protein,Urine Negative (Negative); Urobilinogen,Urine 0.2 EU/dl (0.2)
[2019-09-24 21:39] LABS: Bacteria,Urine Trace /lpf; Squamous Epithelial Cell,Urine Occasional #/hpf (0-5); WBC,Urine Occasional #/hpf (0-3)
[2019-09-24 21:40] LABS: Lymphocytes % 9 % (10-50); Neutrophils % 91 % (42-76); Platelet Estimate Normal; RBC Morphology Normal; Total Cells Counted 100
[2019-09-24 21:46] VITALS: BP 105/57; PULSE 114; RESP 18; O2SAT 97
[2019-09-24 21:47] LABS: Benzodiazepines Screen,Urine Negative ng/ml (<200)
[2019-09-24 21:48] VITALS: TEMP 37.5
[2019-09-24 21:48] LABS: Amphetamine/Metha Screen,Urine Negative ng/ml (<1000); Barbiturates Screen,Urine Negative ng/ml (<200)
[2019-09-24 21:49] LABS: Cannabinoid Screen,Urine Negative ng/ml (<50)
[2019-09-24 21:50] LABS: Cocaine Screen,Urine Negative ng/ml (<300); Methadone Screen,Urine Negative ng/ml (<300)
[2019-09-24 21:51] LABS: Opiate Screen,Urine Negative ng/ml (<300); Phencyclidine Screen,Urine Negative ng/ml (<25)
[2019-09-24 22:21] VITALS: BP 109/66; PULSE 98; RESP 16; TEMP 37.5; O2SAT 98
[2019-09-26 13:37] LABS: Covid-19 Nasal PCR Sendout Lex NOT DETECTED
== END 2019-09-24 22:25 | disposition home or self-care (01) ==
PROVIDERS: Emergency Provider Emergency Medicine; PCP Emergency Medicine
DX: T67.5XXA Heat exhaustion, unspecified, initial encounter (principal); Z03.818 Encounter for observation for suspected exposure to other biological agents ruled out; F17.210 Nicotine dependence, cigarettes, uncomplicated; J44.9 Chronic obstructive pulmonary disease, unspecified
CPT/HCPCS: 71045; 80053; 80305; 81001; 82150; 83605; 83690; 85007; 85025; 87040; 87077; 87186; 96365; 96366; 96367; 96374; 99284; J0456; U0004

== ENCOUNTER → 2019-09-30 13:14 | Outpatient (CLI) | payer MEDICAID, SELFPAY | PROVIDERS: Visit Provider Family Medicine | DX: Z03.818 Encounter for observation for suspected exposure to other biological agents ruled out (principal) ==

== ENCOUNTER → 2019-11-01 13:11 | Outpatient (CLI) | payer MEDICAID, SELFPAY ==
--- NOTE | 2019-11-01 13:12 | CT_ITS ---
PROCEDURE: CT CHEST WO CON CLINICAL INDICATION: COPD PER PATIENT....HX OF LEFT LUNG POLYPS AND PNEUMOTHORAX, CURRENT SMOKER F/U PNEUMONIA NO PRIOR COMPARISON: CR XR CHEST PORTABLE from 09/24/2019 TECHNIQUE: Axial images obtained with sagittal and coronal reformats. All CT scans at the facility use one or more dose reduction, viz: automated exposure control, ma/kV adjustment per patient size (including targeted exams where dose is matched to indication, i.e. head), or iterative reconstruction technique. FINDINGS: HEART AND MEDIASTINAL STRUCTURES: No mediastinal or hilar mass or adenopathy LUNGS AND PLEURAL SPACES: Centrilobular and paraseptal emphysema with some scattered areas of scarring. No lobar consolidation or collapse. BONY STRUCTURES: No acute bony abnormalities apparent. UPPER ABDOMEN: Unremarkable. ADDITIONAL FINDINGS: No other significant abnormalities. IMPRESSION: Centrilobular and paraseptal emphysema with scattered areas of scarring. No acute finding Dictated by: Aquilino Ahumada MD 11/02/2019 10:47 Aquilino Ahumada MD in [place] 11/02/2019 10:47
== END ==
PROVIDERS: PCP Emergency Medicine; Visit Provider Emergency Medicine
DX: J44.9 Chronic obstructive pulmonary disease, unspecified (principal)
CPT/HCPCS: 71250

== ENCOUNTER 2020-01-06 14:47 | Emergency (ER) | payer MEDICAID, SELFPAY ==
[2020-01-06 14:28] VITALS: BP 150/86; PULSE 116; RESP 19; TEMP 37.6; O2SAT 98; BMI 21.2
--- NOTE | 2020-01-06 14:30 | HMH.EDPSYCH ---
ED Disposition Clinical Impression: Acute anxiety Disposition: Home, Self-Care Condition on Discharge: Good Instructions: Anxiety Disorders, Anxiety and Panic Attacks (Alternative Therapy), DI for Anxiety -- Adult Referrals: Frederick Alvarado MD [Staff Physician] - 3 days - Critical Care Critical Care Time: No Attestation: On , the high probability of a clinically significant, sudden or life threatening deterioration of the following system(s) required my full and direct attention, intervention and personal management. The time I documented below is in addition to time spent performing reported procedures but includes the following listed in this critical care notation. Medical Decision Making - Medical Records Medical records reviewed: Yes: I reviewed the patient's medical records. - Fredrick Inquiry Pt receiving controlled substance: No Vital Signs: 01/06/20 14:28 Temperature 99.6 F Temperature Source Oral Pulse Rate [Radial] 116 H Respiratory Rate 19 Blood Pressure [Right Arm] 150/86 H Blood Pressure Mean [Right Arm] 107 Blood Pressure Source [Right Arm] Automatic Cuff Blood Pressure Position [Right Arm] Sitting 02 Sat by Pulse Oximetry 98 Oxygen Delivery Method Room Air Orders (Tests/Meds): ED MEDICATIONS Discontinued Medications Generic Name Dose Route Start Last Admin Trade Name Freq PRN Reason Stop Dose Admin Hydroxyzine Pamoate 25 mg 01/06/20 14:29 01/06/20 14:34 Hydroxyzine Pamoate 25mg Capsule PO 01/06/20 14:30 25 mg ONCE ONE Administration Medical Decision Narrative: Patient with some slight tachycardia, but admits to being anxious and denies any chest pain or difficulty breathing, unlikely pulmonary embolus, ACS given history and exam. He is feeling much better, was given Vistaril here and has improved over a short observation in the ER. Patient feeling better and wants to be discharged home. Patient with no recent illnesses that would prompt acute medical work-up. Discharged home with advised to follow-up with his primary care provider concerning further anxiety management and control. Psych HPI - General Stated Complaint: anxiety Time Seen by Provider: 01/06/20 14:30 Mode of Arrival: EMS Source of Information: Patient, EMS, Medical Record Limitations: No Limitations - History of Present Illness HPI Narrative: This is a 49-year-old male with a past medical history significant for COPD and anxiety who presents to the emergency department for panic attack that started just prior to arrival. Patient states that he had chest pain, became short of breath and felt like his lungs were burning. This is typical for all of his panic attacks. He states he has been having 2-3 panic attacks a week and he was not able to get myself together on this one. However he has significantly improved since being transported by EMS and now denies any chest pain or shortness of breath. No medications were given. He still feels slightly anxious but is much better than he was before. Nothing in particular set him off today and he was just watching TV when he started to feel nervous. He does not currently attend any therapy and does not take any medication for his anxiety. No recent illnesses including no fevers, vomiting, diarrhea. - Related Data Home Medications Medication Instructions Recorded Confirmed buprenorphine 8 mg-naloxone 2 mg 1 tab SUBLINGUAL BID tab 01/08/19 01/06/20 sublingual tablet Tamsulosin HCl 0.4 mg PO DAILY 09/24/19 01/06/20 Allergies Allergy/AdvReac Type Severity Reaction Status Date / Time Penicillins Allergy Severe Rash Verified 01/06/20 14:30 tramadol Allergy Verified 01/06/20 14:30 [facility] History - Hepatitis A Screen Attestation statement:: This patient has been screened for Hepatitis A risk factors. I have reviewed the patient's past medical history: Yes Medical History: Reports:: Chronic Obstructive Pulmonary Disease (COPD
[2020-01-06 14:58] VITALS: BP 135/82; PULSE 97; RESP 18; TEMP 36.9; O2SAT 100
[2020-01-06 15:47] VITALS: BP 135/82; PULSE 97; RESP 18; TEMP 36.9; O2SAT 100
== END 2020-01-06 15:49 | disposition home or self-care (01) ==
PROVIDERS: Emergency Provider Emergency Medicine; PCP Emergency Medicine
DX: F41.8 Other specified anxiety disorders (principal); F17.210 Nicotine dependence, cigarettes, uncomplicated; J44.9 Chronic obstructive pulmonary disease, unspecified; Z79.899 Other long term (current) drug therapy
CPT/HCPCS: 99282

== ENCOUNTER 2020-03-22 17:25 | Emergency (ER) | payer MEDICAID, SELFPAY ==
[2020-03-22 17:25] VITALS: BP 151/87; PULSE 92; RESP 18; TEMP 37; O2SAT 97; BMI 22.1
--- NOTE | 2020-03-22 17:35 | ECG_ITS ---
APPROVED REPORT Exam: Resting ECG HR:94 bpm ECG Measurements Heart Rate 94 AXES AZ 142 P 52 QRSd 82 QRS 42 QT 352 T 31 QTc 440 Conclusion Normal sinus rhythm Normal ECG Electronically signed by : Luis Alberto Townsend, 03/23/2020 14:16:14
--- NOTE | 2020-03-22 17:38 | XR_ITS ---
PROCEDURE: XR CHEST PORTABLE CLINICAL HISTORY: SOA, cough Shortness of air with cough, Covid19 exposure COMPARISON: CR CXR2V XR chest 2V from 03/03/2017 CR CXR2V XR chest 2V from 01/27/2018 CR XR CHEST PORTABLE from 09/24/[address] CHEST WO CON from 11/01/2019 FINDINGS: The cardiomediastinal silhouette and pulmonary vascularity are within normal limits. COPD. No lobar consolidation or collapse. Surgical clips and suture line in the left apex. No acute bony abnormalities. IMPRESSION: No acute findings. Dictated by: Aquilino Ahumada MD 03/23/2020 06:33 Aquilino Ahumada MD in [place] 03/23/2020 06:33
--- NOTE | 2020-03-22 17:46 | HMH.EDSOB ---
ED Disposition Clinical Impression: Chest pain, atypical URI (upper respiratory infection) Qualifiers: URI type: unspecified viral URI Qualified Code(s): J06.9 - Acute upper respiratory infection, unspecified Disposition: Home, Self-Care Condition on Discharge: Good Instructions: DI for Chronic Obstructive Pulmonary Disease Referrals: Frederick Alvarado MD [Primary Care Provider] - - Critical Care Critical Care Time: No Attestation: On 03/22/20, the high probability of a clinically significant, sudden or life threatening deterioration of the following system(s) required my full and direct attention, intervention and personal management. The time I documented below is in addition to time spent performing reported procedures but includes the following listed in this critical care notation. Medical Decision Making - Medical Records Medical records reviewed: Yes: I reviewed the patient's medical records. - Fredrick Inquiry Pt receiving controlled substance: No Vital Signs: 03/22/20 17:25 03/22/20 17:49 03/22/20 18:19 Temperature 98.6 F Temperature Source Oral Pulse Rate [Right Radial] 92 H 92 H 92 H Respiratory Rate 18 Blood Pressure [Right Arm] 151/87 H 132/86 140/95 H Blood Pressure Mean [Right Arm] 108 101 110 Blood Pressure Source [Right Arm] Automatic Cuff Automatic Cuff Automatic Cuff Blood Pressure Position [Right Arm] Sitting Sitting Sitting 02 Sat by Pulse Oximetry 97 95 96 Oxygen Delivery Method Room Air Room Air Room Air 03/22/20 18:28 03/22/20 18:53 Temperature Temperature Source Pulse Rate [Right Radial] 82 80 Respiratory Rate Blood Pressure [Right Arm] 130/82 121/82 Blood Pressure Mean [Right Arm] 98 95 Blood Pressure Source [Right Arm] Automatic Cuff Automatic Cuff Blood Pressure Position [Right Arm] Sitting Sitting 02 Sat by Pulse Oximetry 96 95 Oxygen Delivery Method Room Air Room Air - Lab Data Lab results reviewed: Yes: I reviewed the patient's lab results. Lab Results 03/22/20 18:18: WBC 4.9, RBC 4.32 L, Hgb 14.2, Hct 43.3, MCV 100.2 H, MCH 32.7 H, MCHC 32.7, RDW 18.7 H, Plt Count 401, MPV 8.1, Neut % (Auto) 49.1, Lymph % (Auto) 43.7, [place] % (Auto) 4.6, Eos % (Auto) 2.0, Baso % (Auto) 0.8, Neut # (Auto) 2.4, Lymph # (Auto) 2.2, [place] # (Auto) 0.2, Eos # (Auto) 0.1, Baso # (Auto) 0.0 03/22/20 18:18: Sodium 146 H, Potassium 4.1, Chloride 108 H, Carbon Dioxide 28, Anion Gap 14.1, BUN 10, Creatinine 0.60 L, Estimated Creat Clear 146, Estimated GFR 144, Est GFR ( Amer) 175, Glucose 103 H, Calcium 9.4, Total Bilirubin 0.4, AST 34, ALT 14, Alkaline Phosphatase 283 H, Troponin I < 0.01, NT-Pro-B Natriuret Pep 49.4, Total Protein 8.7 H D, Albumin 4.2, Globulin 4.5 H, Albumin/Globulin Ratio 0.9 L 03/22/20 18:18: Lactate 1.8 03/22/20 18:18: SARS-CoV-2 IgG Ab (Rapid) Negative, SARS-CoV-2 IgM Ab (Rapid) Negative Result diagrams: 03/22/20 18:18 03/22/20 18:18 Orders (Tests/Meds): ED MEDICATIONS Discontinued Medications Generic Name Dose Route Start Last Admin Trade Name Kofiq PRN Reason Stop Dose Admin Dexamethasone Sodium Phosphate 8 mg 03/22/20 19:04 Dexamethasone 4mg/Ml 1ml Vial IV 03/22/20 19:05 ONCE ONE ORDERS Category Date Time Status Chest XR -- portable [XR chest portable] Stat Exams 03/22/20 17:38 Taken XR chest 2V Stat Exams 03/22/20 17:45 Stop Req Covid-19 Nasal PCR ([facility]) Routine Lab 03/22/20 19:04 Ordered Troponin I Q3H Lab 03/22/20 21:00 Ordered Troponin I Q3H Lab 03/23/20 00:00 Ordered Urinalysis and Microscopic Stat Lab 03/22/20 17:46 Ordered Blood Culture Stat Micro 03/22/20 17:46 Received Venous Blood Gas Stat RT 03/22/20 17:46 Ordered - Radiology Data #1 Image(s): Chest Image Reviewed: Yes I reviewed the patient's radiology results Preliminary Findings: Normal/NAD - ECG Data Tracing #1 ECG initial impression date: 03/22/20 ECG initial impression time: 17:32 ECG normal with no acute: arrhythm
[2020-03-22 17:49] VITALS: BP 132/86; PULSE 92; O2SAT 95
[2020-03-22 18:19] VITALS: BP 140/95; PULSE 92; O2SAT 96
--- NOTE | 2020-03-22 18:20 | PC.NURSE ---
Dr Oakes returned call.
[2020-03-22 18:28] VITALS: BP 130/82; PULSE 82; O2SAT 96
[2020-03-22 18:28] LABS: Basophils % 0.8 % (0.1-2.0); Eosinophils # 0.1 K/mm3 (0.0-0.4); Hematocrit 43.3 % (42.0-52.0); Hemoglobin 14.2 g/dL (14.1-18.0); Lymphocytes # 2.2 K/mm3 (0.7-4.5); Lymphocytes % 43.7 % (10-50); Mean Corpuscular HGB Conc 32.7 g/dL (31.8-35.4); Mean Corpuscular Hemoglobin 32.7 pg (27.0-31.2); Mean Corpuscular Volume 100.2 fl (80-94); Mean Platelet Volume 8.1 fl (7.4-10.4); Monocytes # 0.2 K/mm3 (0.1-1.0); Monocytes % 4.6 % (1.7-9.3); Neutrophils # 2.4 K/mm3 (1.8-7.8); Neutrophils % 49.1 % (37.0-80.0); Platelet Count 401 K/mm3 (142-424); Red Blood Count 4.32 M/mm3 (4.60-6.20); Red Cell Distribution Width 18.7 % (11.5-17.5); White Blood Count 4.9 K/mm3 (4.8-10.8)
[2020-03-22 18:47] LABS: Alanine Aminotransferase 14 U/L (12-78); Albumin Level 4.2 g/dl (3.5-5.0); Albumin/Globulin Ratio 0.9 (1.1-1.8); Alkaline Phosphatase 283 U/L (38-126); Anion Gap 14.1 mEq/L (5-15); Aspartate Amino Transferase 34 U/L (17-59); Bilirubin,Total 0.4 mg/dl (0.2-1.3); Blood Urea Nitrogen 10 mg/dl (9-20); Calcium 9.4 mg/dl (8.4-10.2); Carbon Dioxide 28 mmol/L (22.0-30.0); Chloride 108 mmol/L (98-107); Creatinine Clearance Estimated 146 mL/min (50-200); Estimated Glomerular Filt Rate 144 ml/min (>60); GFR (African American) 175 ML/MIN (>60); Globulin 4.5 g/dL (1.3-3.2); Glucose 103 mg/dl (74-100); Lactic Acid 1.8 mmol/L (0.7-2.1); Potassium 4.1 mmoL/L (3.5-5.1); Sodium 146 mmol/L (136-145); Total Protein,Serum 8.7 g/dl (6.3-8.2)
[2020-03-22 18:53] VITALS: BP 121/82; PULSE 80; O2SAT 95
[2020-03-22 18:57] LABS: Coronavirus 19 IgG Antibody Negative (Negative); Coronavirus 19 IgM Antibody Negative (Negative)
[2020-03-22 19:00] LABS: NT Pro Brain Natriuretic Pep. 49.4 pg/mL (0-125); Troponin I < 0.01 ng/ml (0.00-0.034)
[2020-03-22 19:22] VITALS: BP 128/80; PULSE 88; RESP 18; TEMP 37; O2SAT 97
[2020-03-22 19:38] LABS: VBG Base Excess -0.6 mmol/L (-2.4-2.3); VBG Oxygen Saturation 87.7 % (50-70); VBG PCO2 46.2 mmol/L (35-51); VBG PH 7.35 mmol/L (7.31-7.41); VBG PO2 54.5 mmol/L (28-40); VBG Total CO2 26.4 mmol/L (23-27)
== END 2020-03-22 19:26 | disposition home or self-care (01) ==
PROVIDERS: Emergency Provider Emergency Medicine; PCP Emergency Medicine
DX: Z20.822 Contact with and (suspected) exposure to COVID-19 (principal); J06.9 Acute upper respiratory infection, unspecified; J44.9 Chronic obstructive pulmonary disease, unspecified; F17.210 Nicotine dependence, cigarettes, uncomplicated; Z79.899 Other long term (current) drug therapy
CPT/HCPCS: 71045; 80053; 82803; 83605; 83880; 84484; 85025; 86328; 87040; 93005; 96367; 99284; U0003

== ENCOUNTER 2020-04-28 11:41 | Emergency (ER) | payer MEDICAID, SELFPAY ==
[2020-04-28] VITALS (8 sets, daily range): BP systolic 146–168; BP diastolic 88–104; PULSE 97–127; RESP 18–20; TEMP 37.2; O2SAT 96–100; BMI 22.1
--- NOTE | 2020-04-28 12:58 | HMH.EDGENADL ---
ED Disposition Clinical Impression: Sepsis Qualifiers: Sepsis type: sepsis due to unspecified organism Sepsis acute organ dysfunction status: without acute organ dysfunction Qualified Code(s): A41.9 - Sepsis, unspecified organism Low back pain Qualifiers: Chronicity: acute Back pain laterality: unspecified Sciatica presence: without sciatica Qualified Code(s): M54.5 - Low back pain UTI (urinary tract infection) Qualifiers: Urinary tract infection type: site unspecified Hematuria presence: without hematuria Qualified Code(s): N39.0 - Urinary tract infection, site not specified Disposition: Left Against Medical Advice Condition on Discharge: Fair - Critical Care Critical Care Time: No Attestation: On 04/28/20, the high probability of a clinically significant, sudden or life threatening deterioration of the following system(s) required my full and direct attention, intervention and personal management. The time I documented below is in addition to time spent performing reported procedures but includes the following listed in this critical care notation. Medical Decision Making - Fredrick Inquiry Pt receiving controlled substance: Yes Ferdrick was queried for this patient: Yes Reference #:: [id number] Risks and benefits of using a controlled substance: were not discussed with pt by me Comment: 37 rxs for suboxone Vital Signs: 04/28/20 11:41 04/28/20 12:41 04/28/20 13:30 Temperature 98.9 F Temperature Source Oral Pulse Rate [Left Radial] 114 H 97 H 99 H Respiratory Rate 20 Blood Pressure [Left Arm] 168/104 H 148/98 H 146/88 H Blood Pressure Mean [Left Arm] 125 114 107 Blood Pressure Source [Left Arm] Automatic Cuff Automatic Cuff Blood Pressure Position [Left Arm] Supine Supine Supine 02 Sat by Pulse Oximetry 99 98 98 Oxygen Delivery Method Room Air Room Air Room Air 04/28/20 15:08 04/28/20 15:30 04/28/20 16:00 Temperature Temperature Source Pulse Rate [Left Radial] 117 H 120 H 127 H Respiratory Rate 18 20 Blood Pressure [Left Arm] 151/94 H 151/94 H 161/101 H Blood Pressure Mean [Left Arm] 113 113 121 Blood Pressure Source [Left Arm] Blood Pressure Position [Left Arm] Supine 02 Sat by Pulse Oximetry 99 96 99 Oxygen Delivery Method Room Air Room Air Room Air 04/28/20 16:30 Temperature Temperature Source Pulse Rate [Left Radial] 124 H Respiratory Rate 19 Blood Pressure [Left Arm] 152/95 H Blood Pressure Mean [Left Arm] 114 Blood Pressure Source [Left Arm] Blood Pressure Position [Left Arm] 02 Sat by Pulse Oximetry 98 Oxygen Delivery Method Room Air - Lab Data Lab Results 04/28/20 13:40: WBC 18.6 H, RBC 4.08 L, Hgb 13.5 L, Hct 40.2 L, MCV 98.4 H, MCH 33.0 H, MCHC 33.5, RDW 16.1, Plt Count 281, MPV 8.0, Neut % (Auto) 90.8 H, Lymph % (Auto) 6.1 L, [place] % (Auto) 2.5, Eos % (Auto) 0.4, Baso % (Auto) 0.2, Neut # (Auto) 16.9 H, Lymph # (Auto) 1.1, [place] # (Auto) 0.5, Eos # (Auto) 0.1, Baso # (Auto) 0.0, Total Counted 100, Neutrophils % (Manual) 88 H, Lymphocytes % (Manual) 9 L, Monocytes % (Manual) 3, Platelet Estimate Normal, RBC Morphology Normal, ESR 26 H 04/28/20 13:40: Sodium 139, Potassium 4.1, Chloride 107, Carbon Dioxide 25, Anion Gap 11.1, BUN 18, Creatinine 0.70, Estimated Creat Clear 126, Estimated GFR 121, Est GFR ( Amer) 146, Glucose 118 H, Calcium 9.9, C-Reactive Protein 106.2 H 04/28/20 13:40: Procalcitonin 2.27 H 04/28/20 14:10: Urine Color Yellow, Urine Appearance Clear, Urine pH 6.0, Ur Specific Lane 1.025, Urine Protein Trace, Urine Glucose (UA) Negative, Urine Ketones Trace, Urine Blood Negative, Urine Nitrate Positive, Urine Bilirubin Negative, Urine Urobilinogen 0.2, Ur Leukocyte Esterase 1+ A, Urine RBC None, Urine WBC 20-50, Ur Squamous Epith Cells 10-20, Urine Bacteria 2+ 04/28/20 14:10: Urine Opiates Screen Positive H, Urine Methadone Screen Negative, Ur Barbituates Screen Negative, Ur Phencyclidine Scrn Negative, Ur Amphetamines Screen Negative, U Benzodiazepines
[2020-04-28 13:45] LABS: Basophils % 0.2 % (0.1-2.0); Eosinophils # 0.1 K/mm3 (0.0-0.4); Eosinophils % 0.4 % (0.1-12.0); Hematocrit 40.2 % (42.0-52.0); Hemoglobin 13.5 g/dL (14.1-18.0); Lymphocytes # 1.1 K/mm3 (0.7-4.5); Lymphocytes % 6.1 % (10-50); Mean Corpuscular HGB Conc 33.5 g/dL (31.8-35.4); Mean Corpuscular Volume 98.4 fl (80-94); Monocytes # 0.5 K/mm3 (0.1-1.0); Monocytes % 2.5 % (1.7-9.3); Neutrophils # 16.9 K/mm3 (1.8-7.8); Neutrophils % 90.8 % (37.0-80.0); Platelet Count 281 K/mm3 (142-424); Red Blood Count 4.08 M/mm3 (4.60-6.20); Red Cell Distribution Width 16.1 % (11.5-17.5); White Blood Count 18.6 K/mm3 (4.8-10.8)
[2020-04-28 13:46] LABS: MANUAL DIFFERENTIAL MANUAL DIFFERENTIAL (MANUAL DIFF)
[2020-04-28 13:48] LABS: Chloride 107 mmol/L (98-107); Sodium 139 mmol/L (136-145)
[2020-04-28 13:49] LABS: Potassium 4.1 mmoL/L (3.5-5.1)
[2020-04-28 13:51] LABS: Blood Urea Nitrogen 18 mg/dl (9-20); Creatinine Clearance Estimated 126 mL/min (50-200); Estimated Glomerular Filt Rate 121 ml/min (>60); GFR (African American) 146 ML/MIN (>60)
[2020-04-28 13:52] LABS: Anion Gap 11.1 mEq/L (5-15); Calcium 9.9 mg/dl (8.4-10.2); Carbon Dioxide 25 mmol/L (22.0-30.0); Glucose 118 mg/dl (74-100)
[2020-04-28 13:53] LABS: Lymphocytes % 9 % (10-50); Monocytes % 3 % (2-9); Neutrophils % 88 % (42-76); Platelet Estimate Normal; RBC Morphology Normal; Total Cells Counted 100
--- NOTE | 2020-04-28 13:56 | CT_ITS ---
PROCEDURE: CT LUMBAR SPINE W CON CLINICAL HISTORY: back pain, leukocytosis COMPARISON: No exams were available for comparison TECHNIQUE: Axial images obtained with sagittal and coronal reformats. All CT scans at the facility use one or more dose reduction, viz: automated exposure control, ma/kV adjustment per patient size (including targeted exams where dose is matched to indication, i.e. head), or iterative reconstruction technique. FINDINGS: Normal alignment. Generalized osteopenia. No fracture dislocation lytic or blastic change. Mild thoracolumbar scoliosis convex right. No evidence of spondylo discitis. No paraspinal mass or abscess. There are mild atelectatic changes in the lung bases posteriorly Incidental note made of right renal cysts IMPRESSION: No acute finding Dictated by: Aquilino Ahumada MD 04/28/2020 15:31 Aquilino Ahumada MD in [place] 04/28/2020 15:31
--- NOTE | 2020-04-28 13:56 | CT_ITS ---
PROCEDURE: CT CERVICAL SPINE W CON CLINICAL INDICATION: back pain, leukocytosis COMPARISON: CT CT CHEST WO CON from 11/01/2019 CR XR CHEST 2V from 04/28/2020 TECHNIQUE: Axial images obtained with sagittal and coronal reformats. All CT scans at the facility use one or more dose reduction, viz: automated exposure control, ma/kV adjustment per patient size (including targeted exams where dose is matched to indication, i.e. head), or iterative reconstruction technique. Axial spiral CT scanning performed of the cervical spine beginning at the base of the skull and continuing to the upper T-spine. 3-D multiplanar reconstruction with 3-D manipulation of volumetric data set in image rendering was completed by the radiologist and/or technologist with the supervision of the radiologist on independent workstation. FINDINGS: There is normal alignment. No acute fracture or dislocation. No lytic or blastic change. There is osteoarthritic change involving the atlanto axial joint anteriorly at C1-C2 degenerative disc disease is present at C5-C6 with uncovertebral hypertrophy with bilateral foraminal narrowing. No evidence of spondylo discitis. There is minimal wedge contour of C7 and T1. This is chronic having a similar appearance on an old chest CT of 11/01/2019. No paraspinal mass or abscess. Centrilobular emphysematous changes and paraseptal emphysematous changes are present in the lung apices IMPRESSION: Degenerative changes, no acute finding Dictated by: Aquilino Ahumada MD 04/28/2020 15:17 Aquilino Ahumada MD in [place] 04/28/2020 15:17
--- NOTE | 2020-04-28 13:56 | CT_ITS ---
PROCEDURE: CT THORACIC SPINE W CON CLINICAL HISTORY: back pain, leukocytosis COMPARISON: No exams were available for comparison TECHNIQUE: Axial images obtained with sagittal and coronal reformats. All CT scans at the facility use one or more dose reduction, viz: automated exposure control, ma/kV adjustment per patient size (including targeted exams where dose is matched to indication, i.e. head), or iterative reconstruction technique. FINDINGS: There is normal alignment. No acute fracture or dislocation. There is generalized osteopenia. There is mild wedge contour C7 and T1 not significantly changed compared to an older chest CT 11/01/2019. No lytic or blastic change apparent. No endplate erosive change. No paraspinal mass or abscess. The costo vertebral junction at T1 has an unusual appearance with the ribs somewhat protruding into the lateral aspect of the T1 vertebral body on both sides. This is an anatomic variant. Centrilobular and paraseptal emphysematous changes are present. There is left apical scarring. Atelectatic changes are present in the lung bases. IMPRESSION: As above, no acute finding Dictated by: Aquilino Ahumada MD 04/28/2020 15:27 Aquilino Ahumada MD in [place] 04/28/2020 15:27
[2020-04-28 13:57] LABS: C-Reactive Protein 106.2 mg/L (0-4)
--- NOTE | 2020-04-28 14:00 | XR_ITS ---
PROCEDURE: XR CHEST 2V CLINICAL HISTORY: leukocytosis COMPARISON: CR CXR2V XR chest 2V from 01/27/2018 CR XR CHEST PORTABLE from 09/24/[address] CHEST WO CON from 11/01/2019 CR XR CHEST PORTABLE from 03/22/2020 FINDINGS: Study limited technically due to under penetration on the frontal view. Patient refused or could not sit up for the exam. The cardiomediastinal silhouette and pulmonary vascularity are within normal limits. The lungs are clear without infiltrates, suspicious nodules, or pleural effusions. There is a surgical clip overlying the medial aspect of the left clavicle. IMPRESSION: No acute findings. Dictated by: Aquilino Ahumada MD 04/28/2020 15:49 Aquilino Ahumada MD in [place] 04/28/2020 15:49
[2020-04-28 14:10] LABS: Erythrocyte Sedimentation Rate 26 mm/hr (0-15)
[2020-04-28 14:19] LABS: Microscopic, Urine URINE MICROSCOPIC (MICROSCOPIC)
[2020-04-28 14:24] LABS: Appearance,Urine CLEAR (Clear); Bilirubin,Urine Negative (Negative); Blood, Urine Negative (Negative); Color,Urine YELLOW (Yellow); Glucose,Urine (UA) Negative (Negative); Ketones,Urine TRACE (Negative); Leukocyte Esterase,Urine 1+ (Negative); Nitrate,Urine POSITIVE (Negative); Protein,Urine TRACE (Negative); Specific Gravity, Urine 1.025 (1.005-1.030); Urobilinogen,Urine 0.2 EU/dl (0.2)
[2020-04-28 14:32] LABS: Procalcitonin 2.27 ng/mL (0.0-2.0)
--- NOTE | 2020-04-28 14:33 | PC.NURSE ---
pt taken to ct
[2020-04-28 14:35] LABS: Benzodiazepines Screen,Urine Negative ng/ml (<200)
[2020-04-28 14:36] LABS: Amphetamine/Metha Screen,Urine Negative ng/ml (<1000); Barbiturates Screen,Urine Negative ng/ml (<200)
[2020-04-28 14:37] LABS: Cannabinoid Screen,Urine Negative ng/ml (<50)
[2020-04-28 14:38] LABS: Methadone Screen,Urine Negative ng/ml (<300)
[2020-04-28 14:39] LABS: Bacteria,Urine 2+ /lpf; Opiate Screen,Urine Positive ng/ml (<300); WBC,Urine 20-50 #/hpf (0-3)
[2020-04-28 14:40] LABS: Phencyclidine Screen,Urine Negative ng/ml (<25)
[2020-04-28 14:46] LABS: Lactic Acid 0.8 mmol/L (0.7-2.1)
--- NOTE | 2020-04-28 16:03 | PC.NURSE ---
Called House for bed, Jenny to Jenny, back pain, UTI ,Septis
[2020-04-28 16:18] LABS: Cocaine Screen,Urine Negative ng/ml (<300)
--- NOTE | 2020-04-28 16:56 | PC.NURSE ---
Patient refusing covid swab, states I want to sign myself out . MD Jnoes notified and is at bedside discussing risks of AMA with patient.
--- NOTE | 2020-04-28 17:34 | HMH.PHAVTE ---
[facility] Pharmacy VTE Monitoring - Patient Demographics Admission date: 04/28/20 Report Date: 04/28/20 Time: 17:34 Allergies/Adverse Reactions: Patient Allergies Penicillins Allergy (Severe, Verified 03/31/20 13:08) Rash tramadol Allergy (Verified 03/31/20 13:08) Height: 1.75 m Weight: 68.039 kg Patient Problems: Current Active Problems UTI (urinary tract infection) (Acute) Sepsis (Acute) Low back pain (Acute) - VTE Risk Labs: VTE Related Lab Results Hgb 13.5 g/dL (14.1-18.0) L 04/28/20 13:40 Hct 40.2 % (42.0-52.0) L 04/28/20 13:40 Plt Count 281 K/mm3 (142-424) 04/28/20 13:40 BUN 18 mg/dl (9-20) 04/28/20 13:40 Creatinine 0.70 mg/dl (0.66-1.25) 04/28/20 13:40 Estimated Creat Clear 126 mL/min (50-200) 04/28/20 13:40 Clinical Trial Participant: No - Prophylaxis VTE Prophylaxis Ordered?: Yes Types of VTE Prophylaxis: TEDS Knee High
--- NOTE | 2020-04-28 17:39 | HMH.PHAINT ---
HOME MEDICATION LIST COMPLETED USING LIST FROM [employer] [facility] AND [facility] PRIMARY CARE OFFICE. SUBOXONE PRESCRIPTION VERIFIED WITH [employer]
--- NOTE | 2020-04-28 17:41 | PC.NURSE ---
PT states that it is nothing to do with the hospital he just wants to go home and lay in his warm bed and rest. Educated pt what the plan of admissions was and is aware of his tx and states he already has his ride on his way.
== END 2020-04-28 17:46 | disposition left against medical advice (07) ==
LOC: ER 16:03 → 2ND 17:15
PROVIDERS: Emergency Provider Emergency Medicine; PCP Emergency Medicine
DX: N30.00 Acute cystitis without hematuria (principal); A41.53 Sepsis due to Serratia; J44.9 Chronic obstructive pulmonary disease, unspecified; F17.210 Nicotine dependence, cigarettes, uncomplicated; F19.10 Other psychoactive substance abuse, uncomplicated
CPT/HCPCS: 36415; 71046; 72126; 72129; 72132; 80048; 80305; 81001; 83605; 84145; 85007; 85025; 85651; 86140; 87040; 87077; 87086; 87088; 87186; 96365; 96367; 96376; 99284; J1956; J2405; Q9967

== ENCOUNTER 2020-04-30 03:50 | Inpatient (IN) | payer MEDICAID, SELFPAY ==
[2020-04-30] VITALS (11 sets, daily range): BP systolic 121–162; BP diastolic 67–99; PULSE 104–150; RESP 18–26; TEMP 36.5–36.9; O2SAT 96–100; BMI 22.1; BMI 21.4
--- NOTE | 2020-04-30 04:31 | HMH.EDBACK ---
ED Disposition Clinical Impression: Severe sepsis with acute organ dysfunction, Gram negative sepsis, Serratia septicemia, Tobacco use UTI (urinary tract infection) Qualifiers: Urinary tract infection type: site unspecified Hematuria presence: without hematuria Qualified Code(s): N39.0 - Urinary tract infection, site not specified Disposition: Admitted As Inpatient Condition on Discharge: Serious Referrals: Frederick Alvarado MD [Primary Care Provider] - - Critical Care Critical Care Time: No Attestation: On 04/30/20, the high probability of a clinically significant, sudden or life threatening deterioration of the following system(s) required my full and direct attention, intervention and personal management. The time I documented below is in addition to time spent performing reported procedures but includes the following listed in this critical care notation. Medical Decision Making - Medical Records Medical records reviewed: Yes: I reviewed the patient's medical records. - Fredrick Inquiry Pt receiving controlled substance: No Vital Signs: 04/30/20 03:50 04/30/20 04:20 04/30/20 04:30 Temperature 97.7 F Temperature Source Oral Pulse Rate [Right Radial] 142 H 150 H 120 H Respiratory Rate 26 H 24 21 Blood Pressure [Right Arm] 143/86 H 129/87 121/77 Blood Pressure Mean [Right Arm] 105 101 91 Blood Pressure Source [Right Arm] Automatic Cuff Automatic Cuff Automatic Cuff Blood Pressure Position [Right Arm] Supine 02 Sat by Pulse Oximetry 97 96 100 Oxygen Delivery Method Room Air Room Air 04/30/20 05:00 04/30/20 05:30 04/30/20 06:00 Temperature Temperature Source Pulse Rate [Right Radial] 119 H 120 H 126 H Respiratory Rate Blood Pressure [Right Arm] 124/78 122/71 132/72 Blood Pressure Mean [Right Arm] 93 88 92 Blood Pressure Source [Right Arm] Automatic Cuff Automatic Cuff Automatic Cuff Blood Pressure Position [Right Arm] 02 Sat by Pulse Oximetry 100 100 99 Oxygen Delivery Method Room Air Room Air Room Air - Lab Data Lab results reviewed: Yes: I reviewed the patient's lab results. Lab Results 04/30/20 04:05: Urine Color Yellow, Urine Appearance Clear, Urine pH 6.5, Ur Specific [place] 1.020, Urine Protein Trace, Urine Glucose (UA) Negative, Urine Ketones Negative, Urine Blood Trace-i, Urine Nitrate Negative, Urine Bilirubin Negative, Urine Urobilinogen 0.2, Ur Leukocyte Esterase 1+ A, Urine RBC 3-5, Urine WBC 5-10, Ur Squamous Epith Cells 3-5, Urine Bacteria 1+, Urine Mucus 1+ 04/30/20 04:05: Urine Opiates Screen Positive H, Urine Methadone Screen Negative, Ur Barbituates Screen Negative, Ur Phencyclidine Scrn Negative, Ur Amphetamines Screen Negative, U Benzodiazepines Scrn Negative, Urine Cocaine Screen Negative, U Marijuana (THC) Screen Negative 04/30/20 04:05: WBC 14.1 H, RBC 4.54 L, Hgb 15.1, Hct 44.3, MCV 97.6 H, MCH 33.3 H, MCHC 34.2, RDW 15.9, Plt Count 247, MPV 7.8, Neut % (Auto) 86.4 H, Lymph % (Auto) 9.5 L, [place] % (Auto) 3.9, Eos % (Auto) 0.1, Baso % (Auto) 0.1, Neut # (Auto) 12.2 H, Lymph # (Auto) 1.3, [place] # (Auto) 0.5, Eos # (Auto) 0.0, Baso # (Auto) 0.0, Total Counted 100, Neutrophils % (Manual) 94 H, Lymphocytes % (Manual) 6 L, Platelet Estimate Normal, RBC Morphology Not Reportable, Tear Drop Cells 1+ 04/30/20 04:05: Lactate 2.4 H 04/30/20 04:05: ESR 29 H 04/30/20 04:05: Sodium 137, Potassium 3.5, Chloride 101, Carbon Dioxide 21 L, Anion Gap 18.5 H, BUN 8 L D, Creatinine 0.50 L D, Estimated Creat Clear 176, Estimated GFR 178, Est GFR ( Amer) 216 D, Glucose 116 H, Calcium 10.3 H, Total Bilirubin 0.4, AST 27, ALT 17, Alkaline Phosphatase 186 H, C-Reactive Protein 196.1 H, Total Protein 9.0 H, Albumin 4.4, Globulin 4.6 H, Albumin/Globulin Ratio 1.0 L, Procalcitonin 0.487 04/30/20 04:05: Plasma/Serum Alcohol 24 H Result diagrams: 04/30/20 04:05 04/30/20 04:05 Orders (Tests/Meds): ED MEDICATIONS Generic Name Dose Route Start Last Admin Trade Name Freq PRN Reason St
--- NOTE | 2020-04-30 04:37 | CT_ITS ---
PROCEDURE: CT ABDOMEN PELVIS W CON the ABX the what is the whether for cast [facility] CLINICAL INDICATION: low back pain and recent UTI COMPARISON: CT ABDPELWO CT abdomen pelvis wo con from 01/27/2018 TECHNIQUE: IV Contrast: 75ML Isovue 370 Oral Contrast None Axial images obtained with sagittal and coronal reformats. All CT scans at the facility use one or more dose reduction, viz: automated exposure control, ma/kV adjustment per patient size (including targeted exams where dose is matched to indication, i.e. head), or iterative reconstruction technique. FINDINGS: LOWER THORAX: There is platelike bilateral lower lobe atelectatic changes posteriorly with some superimposed consolidation in the right lower lobe posteriorly consistent with atelectatic change or pneumonia. ABDOMEN & PELVIS: Gallbladder is somewhat distended. The liver, spleen, adrenal glands, pancreas have an unremarkable appearance. No renal or ureteral calculi. No hydronephrosis. There are right renal cyst with some cortical scarring of the right kidney. There is a small umbilical hernia. No intestinal obstruction or free air. No evidence of appendicitis. No acute bony findings. There is mild lumbar scoliosis convex right. No obvious evidence of appendicitis. Multiple unopacified bowel loops in the abdomen or pelvis which could obscure or mimic pathology. If symptoms persist, consider repeat exam with IV and oral contrast.. There is no obvious obstruction or free air. IMPRESSION: Bibasilar platelike atelectasis with superimposed right lower lobe atelectasis or infiltrate. No acute abdominal or pelvic findings. Dictated by: Aquilino Ahumada MD 04/30/2020 06:08 Aquilino Ahumada MD in [place] 04/30/2020 06:08
[2020-04-30 04:40] LABS: Microscopic, Urine URINE MICROSCOPIC (MICROSCOPIC)
[2020-04-30 04:41] LABS: Basophils % 0.1 % (0.1-2.0); Eosinophils % 0.1 % (0.1-12.0); Hematocrit 44.3 % (42.0-52.0); Hemoglobin 15.1 g/dL (14.1-18.0); Lymphocytes # 1.3 K/mm3 (0.7-4.5); Lymphocytes % 9.5 % (10-50); Mean Corpuscular HGB Conc 34.2 g/dL (31.8-35.4); Mean Corpuscular Hemoglobin 33.3 pg (27.0-31.2); Mean Corpuscular Volume 97.6 fl (80-94); Mean Platelet Volume 7.8 fl (7.4-10.4); Monocytes # 0.5 K/mm3 (0.1-1.0); Monocytes % 3.9 % (1.7-9.3); Neutrophils # 12.2 K/mm3 (1.8-7.8); Neutrophils % 86.4 % (37.0-80.0); Platelet Count 247 K/mm3 (142-424); Red Blood Count 4.54 M/mm3 (4.60-6.20); Red Cell Distribution Width 15.9 % (11.5-17.5); White Blood Count 14.1 K/mm3 (4.8-10.8)
[2020-04-30 04:44] LABS: Appearance,Urine CLEAR (Clear); Bilirubin,Urine Negative (Negative); Blood, Urine TRACE-I (Negative); Color,Urine YELLOW (Yellow); Glucose,Urine (UA) Negative (Negative); Ketones,Urine Negative (Negative); Leukocyte Esterase,Urine 1+ (Negative); Nitrate,Urine Negative (Negative); PH,Urine 6.5 (5.0-8.5); Protein,Urine TRACE (Negative); Urobilinogen,Urine 0.2 EU/dl (0.2)
[2020-04-30 04:46] LABS: Alanine Aminotransferase 17 U/L (12-78); Albumin Level 4.4 g/dl (3.5-5.0); Alkaline Phosphatase 186 U/L (38-126); Anion Gap 18.5 mEq/L (5-15); Aspartate Amino Transferase 27 U/L (17-59); Bilirubin,Total 0.4 mg/dl (0.2-1.3); Blood Urea Nitrogen 8 mg/dl (9-20); Calcium 10.3 mg/dl (8.4-10.2); Carbon Dioxide 21 mmol/L (22.0-30.0); Chloride 101 mmol/L (98-107); Creatinine Clearance Estimated 176 mL/min (50-200); Estimated Glomerular Filt Rate 178 ml/min (>60); GFR (African American) 216 ML/MIN (>60); Globulin 4.6 g/dL (1.3-3.2); Glucose 116 mg/dl (74-100); Potassium 3.5 mmoL/L (3.5-5.1); Sodium 137 mmol/L (136-145)
[2020-04-30 04:47] LABS: Ethyl Alcohol 24 mg/dl (0-10)
[2020-04-30 04:51] LABS: C-Reactive Protein 196.1 mg/L (0-4); Lactic Acid 2.4 mmol/L (0.7-2.1)
[2020-04-30 04:52] LABS: MANUAL DIFFERENTIAL MANUAL DIFFERENTIAL (MANUAL DIFF)
[2020-04-30 04:55] LABS: Amphetamine/Metha Screen,Urine Negative ng/ml (<1000); Benzodiazepines Screen,Urine Negative ng/ml (<200)
[2020-04-30 04:57] LABS: Cannabinoid Screen,Urine Negative ng/ml (<50); Cocaine Screen,Urine Negative ng/ml (<300)
[2020-04-30 04:58] LABS: Methadone Screen,Urine Negative ng/ml (<300)
[2020-04-30 04:59] LABS: Opiate Screen,Urine Positive ng/ml (<300); Phencyclidine Screen,Urine Negative ng/ml (<25)
[2020-04-30 05:00] LABS: Bacteria,Urine 1+ /lpf; Mucus,Urine 1+ /lpf
--- NOTE | 2020-04-30 05:00 | PC.NURSE ---
pt off floor to radiology via wheelchair.
[2020-04-30 05:02] LABS: Barbiturates Screen,Urine Negative ng/ml (<200)
[2020-04-30 05:04] LABS: Procalcitonin 0.487 ng/mL (0.0-2.0)
[2020-04-30 05:20] LABS: Erythrocyte Sedimentation Rate 29 mm/hr (0-15)
--- NOTE | 2020-04-30 05:23 | PC.NURSE ---
Pt returned from radiology.
--- NOTE | 2020-04-30 05:34 | PC.NURSE ---
Late entry: @ 0431 made aware that pt meets criteria for severe sepsis with organ dysfunction. Fluid bolus initiated at 0445.
[2020-04-30 05:47] LABS: Adenovirus,PCR Not Detected (NotDetected); Bordetella Pertussis Not Detected (NotDetected); Chlamydophila Pneumoniae, PCR Not Detected (NotDetected); Coronavirus 19, PCR Not Detected (NotDetected); Coronavirus 229E Not Detected (NotDetected); Coronavirus NL63 Not Detected (NotDetected); Coronavirus OC43 Not Detected (NotDetected); Coronovirus HKU1,PCR Not Detected (NotDetected); Human Metapneumovirus Not Detected (NotDetected); Influenza A, PCR Not Detected (NotDetected); Influenza AH1, 2009 Not Detected (NotDetected); Influenza AH1, PCR Not Detected (NotDetected); Influenza AH3,PCR Not Detected (NotDetected); Influenza B, PCR Not Detected (NotDetected); Mycoplasma Pneumoniae, PCR Not Detected (NotDetected); Parainfluenza 1, PCR Not Detected (NotDetected); Parainfluenza 2, PCR Not Detected (NotDetected); Parainfluenza 3, PCR Not Detected (NotDetected); Parainfluenza 4, PCR Not Detected (NotDetected); Respiratory Syncytial Virus Not Detected (NotDetected); Rhinovirus/Enterovirus Not Detected (NotDetected)
[2020-04-30 05:53] LABS: Lymphocytes % 6 % (10-50); Neutrophils % 94 % (42-76); Platelet Estimate Normal; Tear Drop Cells 1+; Total Cells Counted 100
--- NOTE | 2020-04-30 07:47 | PC.NURSE ---
report called to olivia noyola
--- NOTE | 2020-04-30 07:48 | PC.NURSE ---
pt continues to c/o pain.
--- NOTE | 2020-04-30 07:54 | PC.NURSE ---
Pt arrived to the floor at this time.
[2020-04-30 08:38] LABS: Reflex Lactic Add Lactic Reflex
--- NOTE | 2020-04-30 09:04 | P.CONPHA_ITS ---
[facility] Pharmacy VTE Monitoring - Patient Demographics Admission date: 04/30/20 Report Date: 04/30/20 Time: 09:04 Allergies/Adverse Reactions: Patient Allergies Penicillins Allergy (Severe, Verified 03/31/20 13:08) Rash tramadol Allergy (Verified 03/31/20 13:08) Height: 1.75 m Weight: 65.771 kg Patient Problems: Current Active Problems UTI (urinary tract infection) (Acute) Severe sepsis with acute organ dysfunction (Acute) Gram negative sepsis (Acute) Serratia septicemia (Acute) Tobacco use (Acute) - VTE Risk Labs: VTE Related Lab Results Hgb 15.1 g/dL (14.1-18.0) 04/30/20 04:05 Hct 44.3 % (42.0-52.0) 04/30/20 04:05 Plt Count 247 K/mm3 (142-424) 04/30/20 04:05 BUN 8 mg/dl (9-20) L D 04/30/20 04:05 Creatinine 0.50 mg/dl (0.66-1.25) L D 04/30/20 04:05 Estimated Creat Clear 176 mL/min (50-200) 04/30/20 04:05 Clinical Trial Participant: No - Prophylaxis VTE Prophylaxis Ordered?: Yes Types of VTE Prophylaxis: TEDS Knee High
--- NOTE | 2020-04-30 09:36 | HMH.HP ---
*Admission Date: 04/30/20 *Chief complaint: back pain *History of present illness: 49 yr old male presented to ED with c/o chronic low back pain that radiates down both legs to toes. Pt was treated in ED for a UTI and sepsis 04/28/20 and left AMA. Pt was prescribed an ABX and states he did fill and take RX for Levaquin. PER EMS they were called to pt's home at 2300 04/29/20, and pt reported to them he took a whole bottle of Advil and refused to come to ER. EMS called back out to pts home early this am and pt wanted to be taken to [facility] because narcotics are the only thing that will help my pain . Pt was admitted for blood stream infection and UTI. [facility] History I have reviewed the patient's past medical history: Yes Medical History: Reports:: Chronic Obstructive Pulmonary Disease (COPD), Pulmonary Embolism Denies:: Cancer, Diabetes Mellitus Type 1, Diabetes Mellitus Type 2, MRSA, Seizures *Have you ever received a pneumonia vaccine?: No *Have you received a flu vaccine this season?: No Other Medical History: Reports: Anemia, Arthritis, Other. Denies: Blood Transfusion Reaction Other Surgeries: Yes: Hernia Repair, Other Amputation: No Fractures: Yes (r arm) - *Social History Smoking Status: Current every day smoker Tobacco Type: cigarettes # Packs/Day (cigarettes): 1 #Yrs smoked (if former smoker): 17 Alcohol Intake: current Alcohol Intake Frequency:: holidays/special occasions only Substance Use Type: former substance user *Occupational Status:: unemployed Housing: house Household Members: family *Travel in the last 8 weeks: None Family Hx:: Heart Attack, Diabetes, Coronary Artery Disease, Cancer, Hypertension Review of Systems - Constitutional Denies body ache(s), Denies fatigue - Eyes Denies change in vision - ENT Denies bleeding gums, Denies post nasal drip - *Cardiovascular Denies chest pain, Denies chest pain with activity - *Respiratory Denies chest congestion - *Gastrointestinal Denies abdominal pain - *Genitourinary Denies decreased urination, Denies urinary frequency, Denies urinary hesitancy, Denies urinary incontinence, Denies urinary urgency - *Musculoskeletal Reports joint pain, Reports back pain - Integumentary/Breasts Denies rash - *Neurologic Reports tingling/numbness/burning sensations, Reports weakness, Denies headache(s), Denies seizure-like activity - Psychiatric Denies lack of enjoyment - Endocrine Denies excessive sweating - Hematologic/Lymphatic Denies enlarged lymph nodes - Allergic/Immunologic Denies lip swelling Meds Home Medications Medication Instructions Recorded Confirmed Type Tamsulosin HCl 0.4 mg PO HS 09/24/19 04/30/20 History Escitalopram Oxalate 10 mg PO DAILY 04/28/20 04/30/20 History Umeclidinium Brm/Vilanterol Tr 1 inh IH DAILY 04/28/20 04/30/20 History [Anoro Ellipta 62.5-25 Mcg INH] hydrOXYzine pamoate [Vistaril] 25 mg PO BID 04/28/20 04/30/20 History Albuterol Sulfate [Proair 2 puff IH Q4-6H PRN 04/30/20 04/30/20 History Digihaler] Buprenorphine HCl/Naloxone HCl 2 film SL DAILY 04/30/20 04/30/20 History [Suboxone 8 mg-2 mg Sl Film] levoFLOXacin [Levaquin 500mg 500 mg PO DAILY 04/30/20 04/30/20 History tab] Allergies Allergy/AdvReac Type Severity Reaction Status Date / Time Penicillins Allergy Severe Rash Verified 03/31/20 13:08 tramadol Allergy Verified 03/31/20 13:08 Exam Vital signs and Labs for Last 24 Hours: Temp Pulse Resp BP Pulse Ox 98.4 F 131 H 20 162/89 H 100 04/30/20 08:00 04/30/20 08:00 04/30/20 08:00 04/30/20 08:00 04/30/20 08:00 Laboratory Results - last 24 hr 04/30/20 04:05: Urine Color Yellow, Urine Appearance Clear, Urine pH 6.5, Ur Specific [place] 1.020, Urine Protein Trace, Urine Glucose (UA) Negative, Urine Ketones Negative, Urine Blood Trace-i, Urine Nitrate Negative, Urine Bilirubin Negative, Urine Urobilinogen 0.2, Ur Leukocyte Esterase 1+ A, Urine RBC 3-5, Urine WBC 5-10, Ur Squa
[2020-04-30 09:48] LABS: Lactic Acid Follow Up (RFLX 1) 1.2 mmol/L (0.7-2.1)
--- NOTE | 2020-04-30 10:00 | XR_ITS ---
PROCEDURE: XR CHEST 2V CLINICAL HISTORY: cough COMPARISON: CR XR CHEST PORTABLE from 09/24/[address] CHEST WO CON from 11/01/2019 CR XR CHEST PORTABLE from 03/22/2020 CR XR CHEST 2V from 04/28/2020 FINDINGS: The cardiomediastinal silhouette and pulmonary vascularity are within normal limits. No lobar consolidation or collapse. There are chronic changes in the right lower lobe. On the lateral view there is some linear density noted in the posterior hemithorax consistent with atelectatic or fibrotic change. IMPRESSION: Chronic changes, no acute finding. Dictated by: Aquilino Ahumada MD 04/30/2020 14:13 Aquilino Ahumada MD in [place] 04/30/2020 14:13
--- NOTE | 2020-04-30 17:03 | PC.NURSE ---
PATIENT IS A&O X4, LUNGS ARE CLEAR. PULSES ARE EQUAL. PATIENT HAS CONTINUED TO TELL THIS RN THAT HE WANTS TO GO HOME. THIS RN HAS EXPLAINED THAT MD IS AWAITING RESULTS FROM ECHO. PATIENT STATED, THEY ALREADY SAID EVERYTHING LOOKED FINE THIS RN PHONED MD OFFICE, OFFICE WAS CLOSED. THIS RN INFORMED PATIENT. PATIENT STATED WELL THEY ARE ALREADY ON THEIR WAY TO GET ME, THERE IS NOTHING YOU CAN DO THAT I CAN DO AT HOME. THIS RN EXPLAINED TO PATIENT THAT HE WOULD BE LEAVING AMA. PATIENT SHRUGGED HIS SHOULDERS. THIS RN PAGED DR. ALONZO. AWAITING PHONE CALL BACK.
--- NOTE | 2020-05-22 22:28 | HMH.DCSUM ---
General - General Admission date:: 04/30/20 Discharge date: 04/30/20 HPI HPI: 49 yr old male presented to ED with c/o chronic low back pain that radiates down both legs to toes. Pt was treated in ED for a UTI and sepsis 04/28/20 and left AMA. Pt was prescribed an ABX and states he did fill and take RX for Levaquin. PER EMS they were called to pt's home at 2300 04/29/20, and pt reported to them he took a whole bottle of Advil and refused to come to ER. EMS called back out to pts home early this am and pt wanted to be taken to [facility] because narcotics are the only thing that will help my pain . Pt was admitted for blood stream infection and UTI. Hospital Course Hospital Course: Laboratory Tests 04/30/20 04/30/20 04/30/20 04:05 04:05 04:05 WBC 14.1 H RBC 4.54 L Hgb 15.1 Hct 44.3 MCV 97.6 H MCH 33.3 H MCHC 34.2 RDW 15.9 Plt Count 247 MPV 7.8 Neut % (Auto) 86.4 H Lymph % (Auto) 9.5 L [place] % (Auto) 3.9 Eos % (Auto) 0.1 Baso % (Auto) 0.1 Neut # (Auto) 12.2 H Lymph # (Auto) 1.3 [place] # (Auto) 0.5 Eos # (Auto) 0.0 Baso # (Auto) 0.0 Total Counted 100 Neutrophils % (Manual) 94 H Lymphocytes % (Manual) 6 L Platelet Estimate Normal RBC Morphology Not Reportable Tear Drop Cells 1+ ESR Sodium Potassium Chloride Carbon Dioxide Anion Gap BUN Creatinine Estimated Creat Clear Estimated GFR Est GFR ( Amer) Glucose Lactate Calcium Total Bilirubin AST ALT Alkaline Phosphatase C-Reactive Protein Total Protein Albumin Globulin Albumin/Globulin Ratio Procalcitonin Urine Color Yellow Urine Appearance Clear Urine pH 6.5 Ur Specific [place] 1.020 Urine Protein Trace Urine Glucose (UA) Negative Urine Ketones Negative Urine Blood Trace-i Urine Nitrate Negative Urine Bilirubin Negative Urine Urobilinogen 0.2 Ur Leukocyte Esterase 1+ A Urine RBC 3-5 Urine WBC 5-10 Ur Squamous Epith Cells 3-5 Urine Bacteria 1+ Urine Mucus 1+ Urine Opiates Screen Positive H Urine Methadone Screen Negative Ur Barbituates Screen Negative Ur Phencyclidine Scrn Negative Ur Amphetamines Screen Negative U Benzodiazepines Scrn Negative Urine Cocaine Screen Negative U Marijuana (THC) Screen Negative Plasma/Serum Alcohol Chlamy pneumoniae PCR Adenovirus (PCR) B. pertussis DNA (PCR) Coronavirus OC43 (PCR) Coronavirus HKU1 (PCR) Coronavirus 229E (PCR) SARS-CoV-2 (PCR) Coronavirus NL63 (PCR) Human Metapneumovir PCR Influenza A (H1) PCR Influ A (H1N1/09) PCR Influenza A (H3) PCR Influenza Type A (PCR) Influenza Type B (PCR) M. pneumoniae (PCR) Parainfluenza 1 (PCR) Parainfluenza 2 (PCR) Parainfluenza 3 (PCR) Parainfluenza 4 (PCR) RSV (PCR) Entero/Rhino (PCR) 04/30/20 04/30/20 04/30/20 04:05 04:05 04:05 WBC RBC Hgb Hct MCV MCH MCHC RDW Plt Count MPV Neut % (Auto) Lymph % (Auto) [place] % (Auto) Eos % (Auto) Baso % (Auto) Neut # (Auto) Lymph # (Auto) [place] # (Auto) Eos # (Auto) Baso # (Auto) Total Counted Neutrophils % (Manual) Lymphocytes % (Manual) Platelet Estimate RBC Morphology Tear Drop Cells ESR 29 H Sodium 137 Potassium 3.5 Chloride 101 Carbon Dioxide 21 L Anion Gap 18.5 H BUN 8 L D Creatinine 0.50 L D Estimated Creat Clear 176 Estimated GFR 178 Est GFR ( Amer) 216 D Glucose 116 H Lactate 2.4 H Calcium 10.3 H Total Bilirubin 0.4 AST 27 ALT 17 Alkaline Phosphatase 186 H C-Reactive Protein 196.1 H Total Protein 9.0 H Albumin 4.4 Globulin 4.6 H Albumin/Globulin Ratio 1.0 L Procalcitonin 0.487 Urine Color Urine Appearance Urine pH Ur Specific
== END 2020-04-30 17:39 | disposition left against medical advice (07) | DRG 690 ==
LOC: ER 05:42 → 2ND 06:50
PROVIDERS: Admitting Provider Emergency Medicine; Emergency Provider Emergency Medicine; PCP Emergency Medicine; Visit Provider Emergency Medicine
DX: N39.0 Urinary tract infection, site not specified (principal); M50.20 Other cervical disc displacement, unspecified cervical region; M50.30 Other cervical disc degeneration, unspecified cervical region; M51.36 Other intervertebral disc degeneration, lumbar region
CPT/HCPCS: 36415; 71046; 74177; 80053; 80305; 81001; 83605; 84145; 85007; 85025; 85651; 86140; 87040; 87086; 87581; 87633; 87798; 93306; 96365; 96367; 96375; 99285; G0378; J1335; Q9967

== ENCOUNTER 2020-05-02 02:30 | Emergency (ER) | payer MEDICAID, SELFPAY ==
[2020-05-02 02:32] VITALS: BP 138/90; PULSE 110; RESP 22; TEMP 36.6; O2SAT 97; BMI 22.1
--- NOTE | 2020-05-02 02:39 | HMH.EDGENADL ---
ED Disposition Clinical Impression: SIRS (systemic inflammatory response syndrome), Degenerative disc disease, lumbar, Gram negative sepsis, Hypokalemia UTI (urinary tract infection) Qualifiers: Urinary tract infection type: site unspecified Hematuria presence: without hematuria Qualified Code(s): N39.0 - Urinary tract infection, site not specified Disposition: Home, Self-Care Condition on Discharge: Good Instructions: DI for Acute Pain -- Adult Additional Instructions: see pcp monday Prescriptions: Ketorolac Tromethamine [Toradol 10mg tablet] 10 mg PO Q6H 3 Days #12 tab Transmission Status: Pending to [facility] Referrals: Frederick Alvarado MD [Primary Care Provider] - - Critical Care Critical Care Time: No Attestation: On , the high probability of a clinically significant, sudden or life threatening deterioration of the following system(s) required my full and direct attention, intervention and personal management. The time I documented below is in addition to time spent performing reported procedures but includes the following listed in this critical care notation. Medical Decision Making - Medical Records Medical records reviewed: Yes: I reviewed the patient's medical records. - Fredrick Inquiry Pt receiving controlled substance: No Vital Signs: 05/02/20 02:32 05/02/20 03:01 Temperature 97.9 F Temperature Source Oral Pulse Rate [Right] 110 H 87 Respiratory Rate 22 Blood Pressure [Right Arm] 138/90 125/80 Blood Pressure Mean [Right Arm] 106 95 Blood Pressure Source [Right Arm] Automatic Cuff Blood Pressure Position [Right Arm] Supine 02 Sat by Pulse Oximetry 97 99 Oxygen Delivery Method Room Air Room Air - Lab Data Lab results reviewed: Yes: I reviewed the patient's lab results. Lab Results 05/02/20 02:32: WBC 7.8 D, RBC 3.57 L, Hgb 11.7 L, Hct 35.5 L, MCV 99.3 H, MCH 32.6 H, MCHC 32.9, RDW 16.0, Plt Count 213, MPV 7.6, Neut % (Auto) 61.7, Lymph % (Auto) 29.2, [place] % (Auto) 6.5, Eos % (Auto) 2.3, Baso % (Auto) 0.3, Neut # (Auto) 4.8, Lymph # (Auto) 2.3, [place] # (Auto) 0.5, Eos # (Auto) 0.2, Baso # (Auto) 0.0, ESR 109 H 05/02/20 02:32: Sodium 139, Potassium 3.1 L, Chloride 109 H, Carbon Dioxide 23, Anion Gap 10.1, BUN 7 L, Creatinine 0.50 L, Estimated Creat Clear 176, Estimated GFR 178, Est GFR ( Amer) 216, Glucose 88, Calcium 8.4 D, Total Bilirubin 0.3, AST 24, ALT 10 L D, Alkaline Phosphatase 125, C-Reactive Protein 120.3 H, Total Protein 6.9, Albumin 3.3 L, Globulin 3.6 H, Albumin/Globulin Ratio 0.9 L, Procalcitonin 0.320 05/02/20 02:40: Urine Color Yellow, Urine Appearance Clear, Urine pH 6.0, Ur Specific [place] <= 1.005, Urine Protein Negative, Urine Glucose (UA) Negative, Urine Ketones Negative, Urine Blood Negative, Urine Nitrate Negative, Urine Bilirubin Negative, Urine Urobilinogen 0.2, Ur Leukocyte Esterase Negative, Urine WBC 10-20 05/02/20 02:40: Urine Opiates Screen Negative, Urine Methadone Screen Negative, Ur Barbituates Screen Negative, Ur Phencyclidine Scrn Negative, Ur Amphetamines Screen Negative, U Benzodiazepines Scrn Negative, Urine Cocaine Screen Negative, U Marijuana (THC) Screen Negative Result diagrams: 05/02/20 02:32 05/02/20 02:32 Orders (Tests/Meds): ED MEDICATIONS Generic Name Dose Route Start Last Admin Trade Name Freq PRN Reason Stop Dose Admin Sodium Chloride 1,000 mls @ 999 mls/hr 05/02/20 02:45 05/02/20 02:47 Sod Chlor 0.9% 1000ml Bag IV 05/02/20 03:45 999 mls/hr .Q1H1M EUGENE Administration Discontinued Medications Generic Name Dose Route Start Last Admin Trade Name Freq PRN Reason Stop Dose Admin Ketorolac Tromethamine 30 mg 05/02/20 02:42 05/02/20 02:47 Ketorolac 30mg/Ml Vial IV 05/02/20 02:43 30 mg ONCE ONE Administration ORDERS Category Date Time Status Urine Culture Stat Micro 05/02/20 02:40 Received Medical Decision Narrative: looks better overall and has stable labs - think ok to go
[2020-05-02 02:45] LABS: Microscopic, Urine URINE MICROSCOPIC (MICROSCOPIC)
[2020-05-02 02:45] LABS: Basophils % 0.3 % (0.1-2.0); Eosinophils # 0.2 K/mm3 (0.0-0.4); Eosinophils % 2.3 % (0.1-12.0); Hematocrit 35.5 % (42.0-52.0); Hemoglobin 11.7 g/dL (14.1-18.0); Lymphocytes # 2.3 K/mm3 (0.7-4.5); Lymphocytes % 29.2 % (10-50); Mean Corpuscular HGB Conc 32.9 g/dL (31.8-35.4); Mean Corpuscular Hemoglobin 32.6 pg (27.0-31.2); Mean Corpuscular Volume 99.3 fl (80-94); Mean Platelet Volume 7.6 fl (7.4-10.4); Monocytes # 0.5 K/mm3 (0.1-1.0); Monocytes % 6.5 % (1.7-9.3); Neutrophils # 4.8 K/mm3 (1.8-7.8); Neutrophils % 61.7 % (37.0-80.0); Platelet Count 213 K/mm3 (142-424); Red Blood Count 3.57 M/mm3 (4.60-6.20); White Blood Count 7.8 K/mm3 (4.8-10.8)
[2020-05-02 02:49] LABS: Appearance,Urine CLEAR (Clear); Bilirubin,Urine Negative (Negative); Blood, Urine Negative (Negative); Color,Urine YELLOW (Yellow); Glucose,Urine (UA) Negative (Negative); Ketones,Urine Negative (Negative); Leukocyte Esterase,Urine Negative (Negative); Nitrate,Urine Negative (Negative); Protein,Urine Negative (Negative); Specific Gravity, Urine <= 1.005 (1.005-1.030); Urobilinogen,Urine 0.2 EU/dl (0.2)
[2020-05-02 02:51] LABS: Alanine Aminotransferase 10 U/L (12-78); Albumin Level 3.3 g/dl (3.5-5.0); Albumin/Globulin Ratio 0.9 (1.1-1.8); Alkaline Phosphatase 125 U/L (38-126); Anion Gap 10.1 mEq/L (5-15); Aspartate Amino Transferase 24 U/L (17-59); Bilirubin,Total 0.3 mg/dl (0.2-1.3); Blood Urea Nitrogen 7 mg/dl (9-20); Carbon Dioxide 23 mmol/L (22.0-30.0); Chloride 109 mmol/L (98-107); Creatinine Clearance Estimated 176 mL/min (50-200); Estimated Glomerular Filt Rate 178 ml/min (>60); GFR (African American) 216 ML/MIN (>60); Globulin 3.6 g/dL (1.3-3.2); Glucose 88 mg/dl (74-100); Potassium 3.1 mmoL/L (3.5-5.1); Sodium 139 mmol/L (136-145); Total Protein,Serum 6.9 g/dl (6.3-8.2)
[2020-05-02 02:58] LABS: C-Reactive Protein 120.3 mg/L (0-4)
[2020-05-02 02:59] LABS: Amphetamine/Metha Screen,Urine Negative ng/ml (<1000); Barbiturates Screen,Urine Negative ng/ml (<200)
[2020-05-02 03:00] LABS: Calcium 8.4 mg/dl (8.4-10.2)
[2020-05-02 03:00] LABS: Benzodiazepines Screen,Urine Negative ng/ml (<200)
[2020-05-02 03:01] VITALS: BP 125/80; PULSE 87; O2SAT 99
[2020-05-02 03:01] LABS: Cannabinoid Screen,Urine Negative ng/ml (<50); Cocaine Screen,Urine Negative ng/ml (<300)
[2020-05-02 03:02] LABS: Methadone Screen,Urine Negative ng/ml (<300)
[2020-05-02 03:03] LABS: Opiate Screen,Urine Negative ng/ml (<300); Phencyclidine Screen,Urine Negative ng/ml (<25)
[2020-05-02 03:27] LABS: Erythrocyte Sedimentation Rate 109 mm/hr (0-15)
[2020-05-02 03:57] VITALS: BP 125/78; PULSE 93; RESP 18; TEMP 36.6; O2SAT 99
== END 2020-05-02 04:00 | disposition home or self-care (01) ==
PROVIDERS: Emergency Provider Emergency Medicine; PCP Emergency Medicine
DX: M51.36 Other intervertebral disc degeneration, lumbar region (principal); R65.10 Systemic inflammatory response syndrome (SIRS) of non-infectious origin without acute organ dysfunction; E87.6 Hypokalemia; N39.0 Urinary tract infection, site not specified; J44.9 Chronic obstructive pulmonary disease, unspecified; F17.210 Nicotine dependence, cigarettes, uncomplicated; Z86.718 Personal history of other venous thrombosis and embolism; Z79.899 Other long term (current) drug therapy
CPT/HCPCS: 80053; 80305; 81001; 84145; 85025; 85651; 86140; 87086; 96365; 96375; 99283

== ENCOUNTER → 2020-06-12 13:46 | Outpatient (CLI) | payer MEDICAID, SELFPAY | PROVIDERS: Visit Provider Nurse Practitioner Family | DX: N39.0 Urinary tract infection, site not specified (principal) | CPT/HCPCS: 87086 ==

== ENCOUNTER 2020-07-22 22:18 | Emergency (ER) | payer MEDICAID, SELFPAY ==
[2020-07-22 22:30] VITALS: BP 112/62; PULSE 116; RESP 20; TEMP 36.4; O2SAT 98; BMI 23.6
--- NOTE | 2020-07-22 23:08 | HMH.EDGENADL ---
ED Disposition Clinical Impression: Lumbar radiculopathy, acute Disposition: Home, Self-Care Condition on Discharge: Good Instructions: DI for Lumbar Radiculopathy Additional Instructions: see pcp for follow up Referrals: Frederick Alvarado MD [Primary Care Provider] - - Critical Care Critical Care Time: No Attestation: On 07/22/20, the high probability of a clinically significant, sudden or life threatening deterioration of the following system(s) required my full and direct attention, intervention and personal management. The time I documented below is in addition to time spent performing reported procedures but includes the following listed in this critical care notation. Medical Decision Making - Medical Records Medical records reviewed: Yes: I reviewed the patient's medical records. - Fredrick Inquiry Pt receiving controlled substance: No Vital Signs: 07/22/20 22:30 Temperature 97.5 F L Temperature Source Oral Pulse Rate [Right] 116 H Respiratory Rate 20 Blood Pressure [Right Arm] 112/62 Blood Pressure Mean [Right Arm] 78 Blood Pressure Source [Right Arm] Automatic Cuff 02 Sat by Pulse Oximetry 98 Oxygen Delivery Method Room Air - Lab Data Lab results reviewed: Yes: I reviewed the patient's lab results. Orders (Tests/Meds): ED MEDICATIONS Discontinued Medications Generic Name Dose Route Start Last Admin Trade Name Freq PRN Reason Stop Dose Admin Ketorolac Tromethamine 60 mg 07/22/20 22:40 07/22/20 23:16 Ketorolac 60mg/2ml Vial IM 07/22/20 22:41 60 mg ONCE ONE Administration Methylprednisolone Sodium Succinate 125 mg 07/22/20 22:40 07/22/20 23:15 Methylprednisolone Sod Succ 125mg Vial IM 07/22/20 22:41 125 mg ONCE ONE Administration Medical Decision Narrative: acute exacerbation of l/s radicular pain General Adult HPI - General Chief complaint: PAIN Stated complaint: back pain Time Seen by Provider: 07/22/20 23:00 Mode of Arrival: EMS Source of Information: Patient, EMS, Medical Record Limitations: Physical Limitations Description of Symptoms (Recalled from ER Triage Doc. by RN): Pt c/o pain to mid back and down legs. He reports tingling and numbness to both feet so intense that he hasn't been able to ambulate much. Reports that the nerve pain is so painful he couldn't wait until his appt on Monday to be seen in the office. He has been taking Ibuprofen without relief. He denies any SOB, cough, or N/V/D. Pt is able to move feet and legs. - History of Present Illness HPI narrative: acute exacerbation of ongoing lumbar radicular pain without fever or rash and no trauma and no cauda equina sx- he has appt monday Onset (ago): hour(s) Location: back Radiation: extremity Severity: moderate Quality: sharp Consistency: constant Associated symptoms: denies other symptoms Treatments prior to arrival: NSAID - Related Data Home Medications Medication Instructions Recorded Confirmed Tamsulosin HCl 0.4 mg PO HS 09/24/19 06/12/20 Escitalopram Oxalate 10 mg PO DAILY 04/28/20 06/12/20 Umeclidinium Brm/Vilanterol Tr 1 inh IH DAILY 04/28/20 06/12/20 [Anoro Ellipta 62.5-25 Mcg INH] Albuterol Sulfate [Proair 2 puff IH Q4-6H PRN 04/30/20 06/12/20 Digihaler] Buprenorphine HCl/Naloxone HCl 2 film SL DAILY 04/30/20 06/12/20 [Suboxone 8 mg-2 mg Sl Film] Previous Rx's Medication Instructions Recorded Ketorolac Tromethamine [Toradol 10 mg PO Q6H 3 Days #12 tab 05/02/20 10mg tablet] prednisone 20 mg tablet 20 mg PO BID 5 Days #10 tab 06/12/20 cyclobenzaprine 10 mg tablet 10 mg PO TID PRN #60 tab 07/10/20 hydroxyzine pamoate 25 mg capsule See Rx Instructions .ROUTE 07/13/20 .COMPLEX #60 capsule methylprednisolone 4 mg tablets in See Rx Instructions PO PER PKG DIR 07/14/20 a dose pack #21 tab Allergies Allergy/AdvReac Type Severity Reaction Status Date / Time Penicillins Allergy Severe Rash Verified 06/12/20 10:29 tramadol Allergy
[2020-07-23 00:13] VITALS: BP 118/78; PULSE 103; RESP 18; TEMP 36.7; O2SAT 98
== END 2020-07-23 00:16 | disposition home or self-care (01) ==
PROVIDERS: Emergency Provider Emergency Medicine; PCP Emergency Medicine
DX: M54.16 Radiculopathy, lumbar region (principal); J44.9 Chronic obstructive pulmonary disease, unspecified; D64.9 Anemia, unspecified; F17.210 Nicotine dependence, cigarettes, uncomplicated; Z79.899 Other long term (current) drug therapy
CPT/HCPCS: 96372; 99282

== ENCOUNTER → 2020-07-24 14:08 | Outpatient (CLI) | payer MEDICAID, SELFPAY ==
[2020-07-24 17:03] LABS: Barbiturates Screen,Urine Negative ng/ml (<200)
[2020-07-24 17:04] LABS: Amphetamine/Metha Screen,Urine Negative ng/ml (<1000)
[2020-07-24 17:05] LABS: Benzodiazepines Screen,Urine Negative ng/ml (<200)
[2020-07-24 17:06] LABS: Cannabinoid Screen,Urine Negative ng/ml (<50)
[2020-07-24 17:07] LABS: Cocaine Screen,Urine Negative ng/ml (<300)
[2020-07-24 17:08] LABS: Methadone Screen,Urine Negative ng/ml (<300)
[2020-07-24 17:09] LABS: Opiate Screen,Urine Negative ng/ml (<300)
[2020-07-24 17:10] LABS: Phencyclidine Screen,Urine Negative ng/ml (<25)
== END ==
PROVIDERS: Visit Provider Emergency Medicine
DX: M51.36 Other intervertebral disc degeneration, lumbar region (principal)
CPT/HCPCS: 80305

== ENCOUNTER 2020-08-05 12:00 | Emergency (ER) | payer MEDICAID, SELFPAY ==
[2020-08-05] VITALS (9 sets, daily range): BP systolic 108–145; BP diastolic 58–82; PULSE 105–139; RESP 16–20; TEMP 36.2–38.2; O2SAT 93–98; BMI 23.6
--- NOTE | 2020-08-05 | MR_ITS ---
PROCEDURE: MR CERVICAL SPINE WO/W CON CLINICAL INDICATION: Possible discitis. Pain with fever and numbness with elevated sed rate and leukocytosis COMPARISON: CT CT CERVICAL SPINE W CON from 04/28/2020 TECHNIQUE: Standard multiplanar multiecho sequences are performed without and with contrast. 3-D MIP and myelographic images are also rendered and reviewed FINDINGS: Normal alignment. Motion artifact on the sagittal T2 weighted images somewhat obscures fine detail. Craniocervical junction has an unremarkable appearance. C2-C3: Mild left-sided foraminal narrowing from facet and uncovertebral hypertrophy. C3-C4: Unremarkable. C4-C5: Mild foraminal narrowing on the left from facet and uncovertebral hypertrophy. C5-C6: Degenerative disc disease with mild bulging disc and mild bilateral foraminal narrowing. The bulging disc is slightly eccentric toward the right. There is borderline canal stenosis at 11 mm. C6-C7: Mild degenerative disc disease with minimal bulging disc slightly eccentric toward the right with mild right foraminal narrowing. C7-T1: Mild chronic wedging of C7 and mild chronic wedging of T1. No enhancing lesions. IMPRESSION: Cervical spondylosis as described above. No evidence of cervical discitis Dictated by: Aquilino Ahumada MD 08/05/2020 15:48 Aquilino Ahumada MD in [place] 08/05/2020 15:48
--- NOTE | 2020-08-05 | MR_ITS ---
PROCEDURE: MR THORACIC SPINE WO/W CON CLINICAL INDICATION: Mid back pain with fever, leg weakness, leukocytosis and elevated sedimentation rate COMPARISON: CT CT THORACIC SPINE W CON from 04/28/2020 TECHNIQUE: Routine multiplanar multi echo sequences are performed without and with gadolinium enhancement. FINDINGS: Wedge compression changes have developed at T3 and T4 with loss of the disc space. There is diffuse decreased T1 and increased T2 signal with enhancement involving the T3 and T4 vertebral bodies. These changes have developed since a previous CT scan of 04/28/2020. There is increased T2 signal at the disc space at T3-T4. There is abnormal prominence of the soft tissues in the paraspinal region at T3-T4 consistent with paravertebral phlegmonous changes. A small area of increased T2 signal is present in the right anterior paraspinal region could represent a developing small abscess at 8 mm. This however is questionable . Motion artifact obscures fine detail at these areas. There is mild kyphosis dorsally at T3-T4 with some minimal bulging of the disc with some mild impingement upon the anterior aspect of the cord. There is bowing of the posterior aspect of the vertebral bodies at T3-T4. There is also increased T2 signal with enhancement of the medial aspect of the 3rd ribs on both sides as well as the pedicles and the transverse processes at T3-T4. There is some mild enhancement in the anterior epidural region suggesting epidural involvement. No obvious epidural abscess. Atelectasis or consolidation is present in the posterior right upper lobe and superior segment right lower lobe. Consider chest x-ray for more thorough evaluation. IMPRESSION: Abnormal MRI of the thoracic spine. 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 There are new wedge compression changes of T3 of approximately 50 percent and T4 of approximately 30 percent with bowing of the posterior aspect of T3-T4 causing mild impingement upon the anterior aspect of the cord. There are paravertebral phlegmonous changes at this region. There is some mild enhancement of the anterior epidural region at T3-T4 suggesting anterior epidural involvement. No obvious abscess is apparent. Abnormal signal with enhancement also noted involving the medial aspect of both T3 ribs and the transverse process and pedicles of T3 T4 consistent with underlying inflammation/infection Dictated by: Aquilino Ahumada MD 08/05/2020 16:06 Aquilino Ahumada MD in [place] 08/05/2020 16:06
--- NOTE | 2020-08-05 | MR_ITS ---
PROCEDURE: MR LUMBAR SPINE WO/W CON CLINICAL INDICATION: POSSIBLE DISCITIS Back pain, fever, leukocytosis with elevated sed rate COMPARISON: MR SPCERVWO MR cervical spine wo con from 09/28/[address] LUMBAR SPINE W CON from 04/28/2020 TECHNIQUE: Standard multiplanar multiecho sequences are performed without contrast. 3-D MIP and myelographic images are also rendered and reviewed FINDINGS: There is normal alignment. The spinal cord ends at the L1-L2 level. There is decrease in the disc space at T12-L1 with increase in T2 signal of the disc. A Schmorl's node is present along the superior endplate of L1 with some enhancement along the superior endplate and around the Schmorl's node. There is also mild enhancement of the L1 vertebral body in the mid and superior aspect. No disc enhancement is apparent. There is some cortical regularity involving the superior endplate of L1. L1-L2: Unremarkable. L2-L3: Unremarkable. L3-L4: Mild facet and ligamentum hypertrophy. L4-5: Mild facet and ligamentum hypertrophy L5-S1: The disc space has an unremarkable. There is a focal triangular shaped area of decreased T1 and increased T2 signal with enhancement involving the anterior superior aspect of S1. There are some stippled hypointense areas within the this region. This may be related to hemangioma involvement. Benign-appearing right renal cysts are noted. IMPRESSION: Abnormal appearance of T12-L1 as described above. While these findings may be related to degenerative disc disease and spondyloarthropathy, 1 cannot exclude the possibility of spondylo discitis however there is no disc enhancement and no paraspinal soft tissue abnormality. Follow-up is suggested. Enhancing lesion involves S1 anteriorly and superiorly may be related to hemangioma. Follow-up of this is also suggested for confirmation Dictated by: Aquilino Ahumada MD 08/05/2020 16:18 Aquilino Ahumada MD in [facility] 08/05/2020 16:18
--- NOTE | 2020-08-05 12:21 | HMH.EDGENADL ---
ED Disposition Clinical Impression: Thoracic discitis, Spinal cord compression Disposition: Xfer Short-Term Hosp Condition on Discharge: Serious Instructions: DI for Low Back Pain Referrals: Frederick Alvarado MD [Primary Care Provider] - - Critical Care Critical Care Time: No Attestation: On 08/05/20, the high probability of a clinically significant, sudden or life threatening deterioration of the following system(s) required my full and direct attention, intervention and personal management. The time I documented below is in addition to time spent performing reported procedures but includes the following listed in this critical care notation. Medical Decision Making - Medical Records Medical records reviewed: Yes: I reviewed the patient's medical records. MR Comment: Reviewed recent hospital visits. Seen by me in this emergency department on 04/28/2020 for severe lower back pain. Found to have markedly elevated inflammatory markers and elevated white blood cell count. CT scans of cervical, thoracic, and lumbar spines with contrast showed no acute process. Started on antibiotics and arrangements made for admission, but patient signed out AGAINST MEDICAL ADVICE. Returned to the emergency department on 04/30/2020 and had gram-negative sepsis. Again arrangements made for admission but signed out AGAINST MEDICAL ADVICE. Seen in emergency department on 07/22/2020 for lumbar back pain and radiculopathy. Followed up in his physician's office on 07/24/2020. Note indicates that the patient had seen a spine surgeon and had had an MRI. Return to his doctor's office today and was suspected to have discitis, sent to the emergency department. - Fredrick Inquiry Pt receiving controlled substance: Yes Fredrick was queried for this patient: No Risks and benefits of using a controlled substance: were not discussed with pt by me Vital Signs: 08/05/20 12:01 08/05/20 15:41 08/05/20 16:00 Temperature 97.1 F L Temperature Source Oral Pulse Rate 117 H 112 H Pulse Rate [Radial] 105 H Respiratory Rate 18 Blood Pressure 137/79 122/67 Blood Pressure [Right Radial Artery] 114/71 Blood Pressure Mean 96 86 Blood Pressure Mean [Right Radial Artery] 85 Blood Pressure Position [Right Radial Artery] Sitting 02 Sat by Pulse Oximetry 97 97 97 Oxygen Delivery Method Room Air 08/05/20 16:38 Temperature 100.7 F H Temperature Source Oral Pulse Rate 125 H Pulse Rate [Radial] Respiratory Rate Blood Pressure Blood Pressure [Right Radial Artery] Blood Pressure Mean Blood Pressure Mean [Right Radial Artery] Blood Pressure Position [Right Radial Artery] 02 Sat by Pulse Oximetry Oxygen Delivery Method - Lab Data Lab Results 08/05/20 12:38: WBC 17.1 H, RBC 4.07 L, Hgb 11.4 L, Hct 33.8 L, MCV 83.0, MCH 27.9, MCHC 33.6, RDW 17.6 H, Plt Count 475 H, MPV 7.9, Neut % (Auto) 85.1 H, Lymph % (Auto) 11.0, [place] % (Auto) 3.5, Eos % (Auto) 0.2, Baso % (Auto) 0.1, Neut # (Auto) 14.5 H, Lymph # (Auto) 1.9, [place] # (Auto) 0.6, Eos # (Auto) 0.0, Baso # (Auto) 0.0, Total Counted 100, Neutrophils % (Manual) 93 H, Lymphocytes % (Manual) 5 L, Monocytes % (Manual) 2, Platelet Estimate Normal, RBC Morphology Normal 08/05/20 12:38: Sodium 136, Potassium 4.0, Chloride 97 L, Carbon Dioxide 23, Anion Gap 20.0 H, BUN 12, Creatinine 0.90, Estimated Creat Clear 103, Estimated GFR 90, Est GFR ( Amer) 109, Glucose 100, Calcium 9.3, Total Bilirubin 1.3, AST 32, ALT 16, Alkaline Phosphatase 349 H, C-Reactive Protein 282.1 H, Total Protein 8.2, Albumin 4.0, Globulin 4.2 H, Albumin/Globulin Ratio 1.0 L 08/05/20 12:38: Lactate 2.3 H 08/05/20 12:38: ESR 93 H 08/05/20 15:40: Chlamy pneumoniae PCR Not detected, Adenovirus (PCR) Not detected, B. pertussis DNA (PCR) Not detected, Coronavirus OC43 (PCR) Not detected, Coronavirus HKU1 (PCR) Not detected, Coronavirus 229E (PCR) Not detected, SARS-CoV-2 (PCR) Not detected, Coronavirus NL63 (PCR) Not detected, Human Metapn
--- NOTE | 2020-08-05 12:24 | PC.NURSE ---
notified MRI that YANELI DORAN is requesting an MRI of C, T and L spine on pt for possible discitis. Michelle states her next scheduled pt is there right now, they will get that pt done and then come down for this pt. YANELI DORAN consulted with radiologist r/t MRI, states he would like MRIs to be with and without contrast, notified MRI staff of this.
[2020-08-05 12:54] LABS: Basophils % 0.1 % (0.1-2.0); Eosinophils % 0.2 % (0.1-12.0); Hematocrit 33.8 % (42.0-52.0); Hemoglobin 11.4 g/dL (14.1-18.0); Lymphocytes # 1.9 K/mm3 (0.7-4.5); Mean Corpuscular HGB Conc 33.6 g/dL (31.8-35.4); Mean Corpuscular Hemoglobin 27.9 pg (27.0-31.2); Mean Platelet Volume 7.9 fl (7.4-10.4); Monocytes # 0.6 K/mm3 (0.1-1.0); Monocytes % 3.5 % (1.7-9.3); Neutrophils # 14.5 K/mm3 (1.8-7.8); Neutrophils % 85.1 % (37.0-80.0); Platelet Count 475 K/mm3 (142-424); Red Blood Count 4.07 M/mm3 (4.60-6.20); Red Cell Distribution Width 17.6 % (11.5-17.5); White Blood Count 17.1 K/mm3 (4.8-10.8)
[2020-08-05 12:57] LABS: MANUAL DIFFERENTIAL MANUAL DIFFERENTIAL (MANUAL DIFF)
--- NOTE | 2020-08-05 12:58 | PC.NURSE ---
Pt to MRI, tech advised he will be there for approx 2 hrs
[2020-08-05 13:08] LABS: Chloride 97 mmol/L (98-107); Lactic Acid 2.3 mmol/L (0.7-2.1); Sodium 136 mmol/L (136-145)
[2020-08-05 13:11] LABS: Alanine Aminotransferase 16 U/L (12-78); Alkaline Phosphatase 349 U/L (38-126); Aspartate Amino Transferase 32 U/L (17-59); Bilirubin,Total 1.3 mg/dl (0.2-1.3); Blood Urea Nitrogen 12 mg/dl (9-20); Carbon Dioxide 23 mmol/L (22.0-30.0); Creatinine Clearance Estimated 103 mL/min (50-200); Estimated Glomerular Filt Rate 90 ml/min (>60); GFR (African American) 109 ML/MIN (>60); Globulin 4.2 g/dL (1.3-3.2); Total Protein,Serum 8.2 g/dl (6.3-8.2)
[2020-08-05 13:12] LABS: Calcium 9.3 mg/dl (8.4-10.2); Glucose 100 mg/dl (74-100)
[2020-08-05 13:17] LABS: C-Reactive Protein 282.1 mg/L (0-4)
[2020-08-05 13:19] LABS: Erythrocyte Sedimentation Rate 93 mm/hr (0-15)
[2020-08-05 13:25] LABS: Lymphocytes % 5 % (10-50); Monocytes % 2 % (2-9); Neutrophils % 93 % (42-76); Platelet Estimate Normal; RBC Morphology Normal; Total Cells Counted 100
--- NOTE | 2020-08-05 15:30 | PC.NURSE ---
PT RETURN FROM MRI
[2020-08-05 15:53] LABS: Adenovirus,PCR Not Detected (NotDetected); Bordetella Pertussis Not Detected (NotDetected); Chlamydophila Pneumoniae, PCR Not Detected (NotDetected); Coronavirus 19, PCR Not Detected (NotDetected); Coronavirus 229E Not Detected (NotDetected); Coronavirus NL63 Not Detected (NotDetected); Coronavirus OC43 Not Detected (NotDetected); Coronovirus HKU1,PCR Not Detected (NotDetected); Human Metapneumovirus Not Detected (NotDetected); Influenza A, PCR Not Detected (NotDetected); Influenza AH1, 2009 Not Detected (NotDetected); Influenza AH1, PCR Not Detected (NotDetected); Influenza AH3,PCR Not Detected (NotDetected); Influenza B, PCR Not Detected (NotDetected); Mycoplasma Pneumoniae, PCR Not Detected (NotDetected); Parainfluenza 1, PCR Not Detected (NotDetected); Parainfluenza 2, PCR Not Detected (NotDetected); Parainfluenza 3, PCR Not Detected (NotDetected); Parainfluenza 4, PCR Not Detected (NotDetected); Respiratory Syncytial Virus Not Detected (NotDetected); Rhinovirus/Enterovirus Not Detected (NotDetected)
--- NOTE | 2020-08-05 16:29 | HMH.PHACONS ---
- Pharmacy Consult Date: 08/05/20 Time: 16:29 Referring provider: DR. PACK Reason for Consult:: VANCOMYCIN DOSING Allergies and ADEs:: Allergies Allergy/AdvReac Type Severity Reaction Status Date / Time Penicillins Allergy Severe Rash Verified 08/05/20 11:16 tramadol Allergy Verified 08/05/20 11:16 Home Medications:: Home Medications Medication Instructions Recorded Confirmed Type Tamsulosin HCl 0.4 mg PO HS 09/24/19 08/05/20 History Escitalopram Oxalate 10 mg PO DAILY 04/28/20 08/05/20 History Umeclidinium Brm/Vilanterol Tr 1 inh IH DAILY 04/28/20 08/05/20 History [Anoro Ellipta 62.5-25 Mcg INH] Albuterol Sulfate [Proair 2 puff IH Q4-6H PRN 04/30/20 08/05/20 History Digihaler] cyclobenzaprine 10 mg tablet 10 mg PO TID PRN #60 tab 07/10/20 08/05/20 Rx hydrOXYzine pamoate [Vistaril] See Rx Instructions .ROUTE .COMPLEX 08/05/20 08/05/20 History Height: 1.75 m Weight: 72.575 kg Laboratory Results:: Laboratory Results - last 24 hr 08/05/20 12:38: WBC 17.1 H, RBC 4.07 L, Hgb 11.4 L, Hct 33.8 L, MCV 83.0, MCH 27.9, MCHC 33.6, RDW 17.6 H, Plt Count 475 H, MPV 7.9, Neut % (Auto) 85.1 H, Lymph % (Auto) 11.0, [place] % (Auto) 3.5, Eos % (Auto) 0.2, Baso % (Auto) 0.1, Neut # (Auto) 14.5 H, Lymph # (Auto) 1.9, [place] # (Auto) 0.6, Eos # (Auto) 0.0, Baso # (Auto) 0.0, Total Counted 100, Neutrophils % (Manual) 93 H, Lymphocytes % (Manual) 5 L, Monocytes % (Manual) 2, Platelet Estimate Normal, RBC Morphology Normal 08/05/20 12:38: Sodium 136, Potassium 4.0, Chloride 97 L, Carbon Dioxide 23, Anion Gap 20.0 H, BUN 12, Creatinine 0.90, Estimated Creat Clear 103, Estimated GFR 90, Est GFR ( Amer) 109, Glucose 100, Calcium 9.3, Total Bilirubin 1.3, AST 32, ALT 16, Alkaline Phosphatase 349 H, C-Reactive Protein 282.1 H, Total Protein 8.2, Albumin 4.0, Globulin 4.2 H, Albumin/Globulin Ratio 1.0 L 08/05/20 12:38: Lactate 2.3 H 08/05/20 12:38: ESR 93 H Medical History: Reports:: Chronic Obstructive Pulmonary Disease (COPD), Pulmonary Embolism, Urinary Tract Infection Denies:: Cancer, Diabetes Mellitus Type 1, Diabetes Mellitus Type 2, MRSA, Seizures Assessment and Plan - Assessment and plan all Dx Assessment and Plan for all problems:: Pharmacokinetic dosing service Objective: Patient: Floor: Age: 50 yo Serum creatinine: 0.90 mg/dL Height: 68.9 Inches Weight (kg): 72.6 Assessment: IBW (kg): 70.47 Dosing wt(kg): 72.6 Estimated Creatinine clearance (ml/min): 100.0 CRCL method: Cockcroft and Gault using ibw(default). Drug selected: Vancomycin Loading dose (mg): 0 Vd (liters): 54.4 (factor used: 0.75 L/kg) Eric (hr-1): 0.087 Half life (hrs): 7.97 Recommended dose: 1500 mg Interval: 12 hrs Infusion time (hrs): 2.0 Predicted peak (mcg/mL): 39.1 Predicted trough (mcg/mL): 16.38 Total body weight is being used for vancomycin dosing. Recommendations: Give Vancomycin 1500 mg q 12 hrs with an expected Cpeak of 39.1 mcg/ml and an expected Ctrough of 16.38 mcg/ml -ALEXIA FREEDMAND
[2020-08-05 16:46] LABS: Reflex Lactic Add Lactic Reflex
--- NOTE | 2020-08-05 17:01 | PC.NURSE ---
placed call to [facility] for transfer
--- NOTE | 2020-08-05 17:28 | PC.NURSE ---
Dr Jones spoke with Dr Perdue he is to accept to ER
--- NOTE | 2020-08-05 18:08 | PC.NURSE ---
REPORT CALLED TO [facility]
--- NOTE | 2020-08-05 18:26 | PC.NURSE ---
REPORT TO [facility] PT TRANSFERRED TO [facility]
== END 2020-08-05 18:29 | disposition short-term general hospital (02) ==
PROVIDERS: Emergency Provider Emergency Medicine; PCP Emergency Medicine
DX: M46.44 Discitis, unspecified, thoracic region (principal); G95.20 Unspecified cord compression; J44.9 Chronic obstructive pulmonary disease, unspecified; Z86.711 Personal history of pulmonary embolism; Z79.01 Long term (current) use of anticoagulants; F17.210 Nicotine dependence, cigarettes, uncomplicated; Z79.899 Other long term (current) drug therapy
CPT/HCPCS: 72156; 72157; 72158; 76376; 80053; 83605; 85007; 85025; 85651; 86140; 87040; 87077; 87186; 87581; 87633; 87798; 96365; 96375; 96376; 99284; A9576; J2405

== ENCOUNTER → 2020-08-17 12:01 | Outpatient (CLI) | payer MEDICAID, SELFPAY ==
[2020-08-17 14:04] LABS: Basophils # 0.1 K/mm3 (0-0.2); Basophils % 0.5 % (0.1-2.0); Eosinophils # 0.2 K/mm3 (0.0-0.4); Eosinophils % 1.7 % (0.1-12.0); Hematocrit 29.8 % (42.0-52.0); Hemoglobin 9.8 g/dL (14.1-18.0); Lymphocytes # 2.9 K/mm3 (0.7-4.5); Mean Corpuscular HGB Conc 33.1 g/dL (31.8-35.4); Mean Corpuscular Volume 84.6 fl (80-94); Mean Platelet Volume 7.6 fl (7.4-10.4); Monocytes # 0.7 K/mm3 (0.1-1.0); Monocytes % 5.4 % (1.7-9.3); Neutrophils # 8.8 K/mm3 (1.8-7.8); Neutrophils % 69.4 % (37.0-80.0); Platelet Count 790 K/mm3 (142-424); Red Blood Count 3.52 M/mm3 (4.60-6.20); Red Cell Distribution Width 17.3 % (11.5-17.5); White Blood Count 12.7 K/mm3 (4.8-10.8)
[2020-08-17 14:36] LABS: Alanine Aminotransferase 16 U/L (12-78); Albumin Level 4.1 g/dl (3.5-5.0); Albumin/Globulin Ratio 1.1 (1.1-1.8); Alkaline Phosphatase 211 U/L (38-126); Anion Gap 16.3 mEq/L (5-15); Aspartate Amino Transferase 25 U/L (17-59); Bilirubin,Total 0.5 mg/dl (0.2-1.3); Blood Urea Nitrogen 11 mg/dl (9-20); Calcium 10.1 mg/dl (8.4-10.2); Carbon Dioxide 26 mmol/L (22.0-30.0); Chloride 98 mmol/L (98-107); Creatine Kinase 23 U/L (55-170); Estimated Glomerular Filt Rate 120 ml/min (>60); GFR (African American) 146 ML/MIN (>60); Globulin 3.8 g/dL (1.3-3.2); Glucose 81 mg/dl (74-100); Potassium 5.3 mmoL/L (3.5-5.1); Sodium 135 mmol/L (136-145); Total Protein,Serum 7.9 g/dl (6.3-8.2)
[2020-08-17 14:42] LABS: C-Reactive Protein 30.8 mg/L (0-4)
== END ==
PROVIDERS: Visit Provider Emergency Medicine
DX: R07.89 Other chest pain (principal)
CPT/HCPCS: 80053; 82550; 85025; 86140

== ENCOUNTER → 2020-09-01 11:10 | Outpatient (CLI) | payer MEDICAID, SELFPAY ==
[2020-09-01 13:48] LABS: Basophils # 0.1 K/mm3 (0-0.2); Basophils % 0.5 % (0.1-2.0); Eosinophils # 0.5 K/mm3 (0.0-0.4); Eosinophils % 4.9 % (0.1-12.0); Hematocrit 34.8 % (42.0-52.0); Hemoglobin 11.5 g/dL (14.1-18.0); Lymphocytes # 2.7 K/mm3 (0.7-4.5); Lymphocytes % 26.5 % (10-50); Mean Corpuscular HGB Conc 33.2 g/dL (31.8-35.4); Mean Corpuscular Hemoglobin 29.4 pg (27.0-31.2); Mean Corpuscular Volume 88.8 fl (80-94); Mean Platelet Volume 7.7 fl (7.4-10.4); Monocytes # 0.4 K/mm3 (0.1-1.0); Monocytes % 4.1 % (1.7-9.3); Neutrophils # 6.5 K/mm3 (1.8-7.8); Platelet Count 352 K/mm3 (142-424); Red Blood Count 3.92 M/mm3 (4.60-6.20); Red Cell Distribution Width 20.5 % (11.5-17.5); White Blood Count 10.2 K/mm3 (4.8-10.8)
[2020-09-01 14:01] LABS: Chloride 108 mmol/L (98-107); Potassium 3.2 mmoL/L (3.5-5.1); Sodium 143 mmol/L (136-145)
[2020-09-01 14:03] LABS: Alanine Aminotransferase 14 U/L (12-78); Aspartate Amino Transferase 23 U/L (17-59); Blood Urea Nitrogen 5 mg/dl (9-20); Estimated Glomerular Filt Rate 144 ml/min (>60); GFR (African American) 174 ML/MIN (>60)
[2020-09-01 14:04] LABS: Albumin Level 3.9 g/dl (3.5-5.0); Albumin/Globulin Ratio 1.1 (1.1-1.8); Alkaline Phosphatase 189 U/L (38-126); Anion Gap 14.2 mEq/L (5-15); Bilirubin,Total 0.5 mg/dl (0.2-1.3); Carbon Dioxide 24 mmol/L (22.0-30.0); Creatine Kinase 40 U/L (55-170); Globulin 3.4 g/dL (1.3-3.2); Glucose 105 mg/dl (74-100); Total Protein,Serum 7.3 g/dl (6.3-8.2)
[2020-09-01 21:48] LABS: C-Reactive Protein 4.4 mg/L (0-4)
== END ==
PROVIDERS: Visit Provider Emergency Medicine
DX: M46.44 Discitis, unspecified, thoracic region (principal)
CPT/HCPCS: 80053; 82550; 85025; 86140

== ENCOUNTER → 2020-09-22 13:52 | Outpatient (CLI) | payer MEDICAID, SELFPAY ==
[2020-09-22 14:51] LABS: Amphetamine/Metha Screen,Urine Negative ng/ml (<1000); Barbiturates Screen,Urine Negative ng/ml (<200)
[2020-09-22 14:52] LABS: Benzodiazepines Screen,Urine Negative ng/ml (<200)
[2020-09-22 14:55] LABS: Cannabinoid Screen,Urine Negative ng/ml (<50); Cocaine Screen,Urine Negative ng/ml (<300)
[2020-09-22 14:56] LABS: Methadone Screen,Urine Negative ng/ml (<300); Opiate Screen,Urine Negative ng/ml (<300)
[2020-09-22 14:57] LABS: Phencyclidine Screen,Urine Negative ng/ml (<25)
== END ==
PROVIDERS: Visit Provider Emergency Medicine
DX: M46.44 Discitis, unspecified, thoracic region (principal)
CPT/HCPCS: 80305

== ENCOUNTER → 2021-01-13 19:36 | Outpatient (CLI) | payer MEDICAID, SELFPAY ==
[2021-01-13 23:36] LABS: Amphetamine/Metha Screen,Urine Negative ng/ml (<1000)
[2021-01-13 23:37] LABS: Barbiturates Screen,Urine Negative ng/ml (<200); Benzodiazepines Screen,Urine Negative ng/ml (<200)
[2021-01-13 23:38] LABS: Cannabinoid Screen,Urine Negative ng/ml (<50); Cocaine Screen,Urine Negative ng/ml (<300)
[2021-01-13 23:39] LABS: Methadone Screen,Urine Negative ng/ml (<300)
[2021-01-13 23:40] LABS: Opiate Screen,Urine Negative ng/ml (<300); Phencyclidine Screen,Urine Negative ng/ml (<25)
== END ==
PROVIDERS: Visit Provider Emergency Medicine
DX: Z79.899 Other long term (current) drug therapy (principal)
CPT/HCPCS: 80305

== ENCOUNTER → 2021-02-10 18:54 | Outpatient (CLI) | payer MEDICAID, SELFPAY ==
[2021-02-10 20:57] LABS: Amphetamine/Metha Screen,Urine Negative ng/ml (<1000)
[2021-02-10 20:58] LABS: Barbiturates Screen,Urine Negative ng/ml (<200); Benzodiazepines Screen,Urine Negative ng/ml (<200)
[2021-02-10 20:59] LABS: Cannabinoid Screen,Urine Negative ng/ml (<50); Cocaine Screen,Urine Negative ng/ml (<300)
[2021-02-10 21:00] LABS: Methadone Screen,Urine Negative ng/ml (<300)
[2021-02-10 21:01] LABS: Opiate Screen,Urine Negative ng/ml (<300); Phencyclidine Screen,Urine Negative ng/ml (<25)
== END ==
PROVIDERS: Visit Provider Emergency Medicine
DX: Z79.899 Other long term (current) drug therapy (principal)
CPT/HCPCS: 80305

== ENCOUNTER → 2021-04-12 16:00 | Outpatient (CLI) | payer MEDICAID, SELFPAY ==
[2021-04-12 20:14] LABS: Amphetamine/Metha Screen,Urine Negative ng/ml (<1000)
[2021-04-12 20:15] LABS: Barbiturates Screen,Urine Negative ng/ml (<200); Benzodiazepines Screen,Urine Negative ng/ml (<200)
[2021-04-12 20:16] LABS: Cannabinoid Screen,Urine Negative ng/ml (<50)
[2021-04-12 20:17] LABS: Cocaine Screen,Urine Negative ng/ml (<300)
[2021-04-12 20:18] LABS: Methadone Screen,Urine Negative ng/ml (<300); Opiate Screen,Urine Positive ng/ml (<300)
[2021-04-12 20:19] LABS: Phencyclidine Screen,Urine Negative ng/ml (<25)
== END ==
PROVIDERS: Visit Provider Emergency Medicine
DX: Z79.899 Other long term (current) drug therapy (principal)
CPT/HCPCS: 80305

== ENCOUNTER → 2021-06-09 12:08 | Outpatient (CLI) | payer MEDICAID, SELFPAY ==
[2021-06-09 18:42] LABS: Amphetamine/Metha Screen,Urine Negative ng/ml (<1000)
[2021-06-09 18:43] LABS: Barbiturates Screen,Urine Negative ng/ml (<200)
[2021-06-09 18:44] LABS: Benzodiazepines Screen,Urine Negative ng/ml (<200); Cannabinoid Screen,Urine Negative ng/ml (<50)
[2021-06-09 18:45] LABS: Cocaine Screen,Urine Negative ng/ml (<300); Methadone Screen,Urine Negative ng/ml (<300)
[2021-06-09 18:46] LABS: Opiate Screen,Urine Negative ng/ml (<300)
[2021-06-09 18:47] LABS: Phencyclidine Screen,Urine Negative ng/ml (<25)
== END ==
PROVIDERS: PCP Emergency Medicine; Visit Provider Emergency Medicine
DX: Z79.899 Other long term (current) drug therapy (principal)
CPT/HCPCS: 80305

== ENCOUNTER → 2021-08-18 09:02 | Outpatient (CLI) | payer MEDICAID, SELFPAY ==
[2021-08-17 20:30] LABS: Amphetamine/Metha Screen,Urine Negative ng/ml (<1000)
[2021-08-17 20:31] LABS: Barbiturates Screen,Urine Negative ng/ml (<200)
[2021-08-17 20:32] LABS: Benzodiazepines Screen,Urine Negative ng/ml (<200); Cannabinoid Screen,Urine Negative ng/ml (<50)
[2021-08-17 20:33] LABS: Cocaine Screen,Urine Negative ng/ml (<300)
[2021-08-17 20:34] LABS: Methadone Screen,Urine Negative ng/ml (<300); Opiate Screen,Urine Negative ng/ml (<300)
[2021-08-17 20:35] LABS: Phencyclidine Screen,Urine Negative ng/ml (<25)
== END ==
PROVIDERS: PCP Emergency Medicine; Visit Provider Emergency Medicine
DX: Z79.899 Other long term (current) drug therapy (principal)
CPT/HCPCS: 80305

== ENCOUNTER → 2021-12-16 09:43 | Outpatient (CLI) | payer MEDICAID, SELFPAY | PROVIDERS: PCP Emergency Medicine; Visit Provider Emergency Medicine | DX: R00.0 Tachycardia, unspecified (principal) | CPT/HCPCS: 93225; 93226 ==

== ENCOUNTER → 2022-02-09 09:40 | Outpatient (CLI) | payer MEDICAID, SELFPAY ==
[2022-02-09 14:54] LABS: Barbiturates Screen,Urine Negative ng/ml (<200); Benzodiazepines Screen,Urine Negative ng/ml (<200)
[2022-02-09 14:55] LABS: Amphetamine/Metha Screen,Urine Negative ng/ml (<1000); Methadone Screen,Urine Negative ng/ml (<300)
[2022-02-09 14:56] LABS: Cannabinoid Screen,Urine Negative ng/ml (<50)
[2022-02-09 14:57] LABS: Cocaine Screen,Urine Negative ng/ml (<300)
[2022-02-09 14:58] LABS: Opiate Screen,Urine Negative ng/ml (<300)
[2022-02-09 14:59] LABS: Phencyclidine Screen,Urine Negative ng/ml (<25)
== END ==
PROVIDERS: PCP Emergency Medicine; Visit Provider Emergency Medicine
DX: Z79.899 Other long term (current) drug therapy (principal)
CPT/HCPCS: 80305

== ENCOUNTER → 2022-06-10 11:33 | Outpatient (CLI) | payer MEDICAID, SELFPAY ==
[2022-06-14 19:46] LABS: Alpha-1-Antitrypsin 156 mg/dL (101-187)
== END ==
PROVIDERS: PCP Emergency Medicine; Visit Provider Internal Medicine Pulmonary Disease
DX: J44.9 Chronic obstructive pulmonary disease, unspecified (principal)
CPT/HCPCS: 36415; 82103; 82104

== ENCOUNTER → 2022-06-15 10:44 | Outpatient (CLI) | payer MEDICAID, SELFPAY ==
[2022-06-15 16:09] LABS: Barbiturates Screen,Urine Negative ng/ml (<200)
[2022-06-15 16:11] LABS: Amphetamine/Metha Screen,Urine Negative ng/ml (<1000); Benzodiazepines Screen,Urine Negative ng/ml (<200)
[2022-06-15 16:13] LABS: Cannabinoid Screen,Urine Negative ng/ml (<50)
[2022-06-15 16:14] LABS: Cocaine Screen,Urine Negative ng/ml (<300); Methadone Screen,Urine Negative ng/ml (<300)
[2022-06-15 16:15] LABS: Opiate Screen,Urine Negative ng/ml (<300)
[2022-06-15 16:16] LABS: Phencyclidine Screen,Urine Negative ng/ml (<25)
== END ==
PROVIDERS: PCP Emergency Medicine; Visit Provider Emergency Medicine
DX: Z79.899 Other long term (current) drug therapy (principal)
CPT/HCPCS: 80305

== ENCOUNTER → 2022-08-12 13:01 | Outpatient (CLI) | payer MEDICAID, SELFPAY ==
[2022-08-12 12:49] LABS: Amphetamine/Metha Screen,Urine Positive ng/ml (<1000)
[2022-08-12 12:50] LABS: Barbiturates Screen,Urine Negative ng/ml (<200)
[2022-08-12 12:51] LABS: Benzodiazepines Screen,Urine Negative ng/ml (<200); Cannabinoid Screen,Urine Negative ng/ml (<50)
[2022-08-12 12:52] LABS: Cocaine Screen,Urine Negative ng/ml (<300); Methadone Screen,Urine Negative ng/ml (<300)
[2022-08-12 12:53] LABS: Opiate Screen,Urine Negative ng/ml (<300)
[2022-08-12 12:54] LABS: Phencyclidine Screen,Urine Negative ng/ml (<25)
[2022-08-12 12:58] LABS: Basophils % 0.5 % (0.1-2.0); Eosinophils # 0.1 K/mm3 (0.0-0.4); Eosinophils % 1.4 % (0.1-12.0); Hematocrit 47.8 % (42.0-52.0); Hemoglobin 15.5 g/dL (14.1-18.0); Lymphocytes # 2.5 K/mm3 (0.7-4.5); Lymphocytes % 41.1 % (10-50); Mean Corpuscular HGB Conc 32.4 g/dL (31.8-35.4); Mean Corpuscular Hemoglobin 30.2 pg (27.0-31.2); Mean Corpuscular Volume 92.9 fl (80-94); Mean Platelet Volume 8.2 fl (7.4-10.4); Monocytes # 0.4 K/mm3 (0.1-1.0); Monocytes % 5.8 % (1.7-9.3); Neutrophils # 3.1 K/mm3 (1.8-7.8); Neutrophils % 51.2 % (37.0-80.0); Platelet Count 299 K/mm3 (142-424); Red Blood Count 5.15 M/mm3 (4.60-6.20); Red Cell Distribution Width 15.2 % (11.5-17.5); White Blood Count 6.1 K/mm3 (4.8-10.8)
[2022-08-12 13:11] LABS: Alanine Aminotransferase 22 U/L (12-78); Albumin Level 4.6 g/dl (3.5-5.0); Albumin/Globulin Ratio 1.4 (1.1-1.8); Alkaline Phosphatase 173 U/L (38-126); Anion Gap 20.6 mEq/L (5-15); Aspartate Amino Transferase 24 U/L (17-59); Bilirubin,Total 0.5 mg/dl (0.2-1.3); Blood Urea Nitrogen 17 mg/dl (9-20); Calcium 9.4 mg/dl (8.4-10.2); Carbon Dioxide 23 mmol/L (22.0-30.0); Chloride 102 mmol/L (98-107); Chol/HDL Ratio 4.3 (1-3.5); Cholesterol 226 mg/dl (140-200); Estimated Glomerular Filt Rate 89 ml/min (>60); GFR (African American) 108 ML/MIN (>60); Globulin 3.2 g/dL (1.3-3.2); Glucose 98 mg/dl (74-100); HDL Cholesterol 52 mg/dl (40-60); Potassium 4.6 mmoL/L (3.5-5.1); Sodium 141 mmol/L (136-145); Total Protein,Serum 7.8 g/dl (6.3-8.2); Triglycerides 177 mg/dl (30-150); VLDL Cholesterol 35 mg/dL (0-40)
[2022-08-12 13:23] LABS: Direct LDL Cholesterol 127.95 mg/dL (100-129)
[2022-08-12 13:30] LABS: 25-OH Vitamin D, Total 32.9 ng/mL (30-100)
[2022-08-12 13:32] LABS: T4 (Thyroxine) 4.9 ug/dl (5.53-11.0)
[2022-08-12 13:45] LABS: Prostate Specific Ag Screen 1.9 ng/ml (0.0-4.0); Thyroid Stimulating Hormone 0.17 uIU/mL (0.465-4.68)
== END ==
PROVIDERS: PCP Emergency Medicine; Visit Provider Emergency Medicine
DX: Z00.00 Encounter for general adult medical examination without abnormal findings (principal); G89.29 Other chronic pain; E66.3 Overweight; Z68.28 Body mass index [BMI] 28.0-28.9, adult; Z79.899 Other long term (current) drug therapy; Z12.5 Encounter for screening for malignant neoplasm of prostate
CPT/HCPCS: 80053; 80061; 80305; 82306; 84436; 84443; 85025; G0103

== ENCOUNTER → 2022-10-07 14:19 | Outpatient (CLI) | payer MEDICAID, SELFPAY ==
[2022-10-07 12:09] LABS: Amphetamine/Metha Screen,Urine Negative ng/ml (<1000)
[2022-10-07 12:10] LABS: Barbiturates Screen,Urine Negative ng/ml (<200)
[2022-10-07 12:11] LABS: Benzodiazepines Screen,Urine Negative ng/ml (<200)
[2022-10-07 12:12] LABS: Cannabinoid Screen,Urine Negative ng/ml (<50)
[2022-10-07 12:13] LABS: Cocaine Screen,Urine Negative ng/ml (<300); Methadone Screen,Urine Negative ng/ml (<300)
[2022-10-07 12:14] LABS: Opiate Screen,Urine Negative ng/ml (<300)
[2022-10-07 12:15] LABS: Phencyclidine Screen,Urine Negative ng/ml (<25)
== END ==
PROVIDERS: PCP Emergency Medicine; Visit Provider Emergency Medicine
DX: Z79.899 Other long term (current) drug therapy (principal)
CPT/HCPCS: 80305

== ENCOUNTER → 2022-12-05 13:25 | Outpatient (CLI) | payer MEDICAID, SELFPAY ==
[2022-12-05 15:56] LABS: Amphetamine/Metha Screen,Urine Negative ng/ml (<1000)
[2022-12-05 15:57] LABS: Barbiturates Screen,Urine Negative ng/ml (<200); Benzodiazepines Screen,Urine Negative ng/ml (<200)
[2022-12-05 15:58] LABS: Cannabinoid Screen,Urine Negative ng/ml (<50); Cocaine Screen,Urine Negative ng/ml (<300)
[2022-12-05 15:59] LABS: Methadone Screen,Urine Negative ng/ml (<300)
[2022-12-05 16:00] LABS: Opiate Screen,Urine Negative ng/ml (<300); Phencyclidine Screen,Urine Negative ng/ml (<25)
== END ==
PROVIDERS: PCP Emergency Medicine; Visit Provider Emergency Medicine
DX: Z79.899 Other long term (current) drug therapy (principal)
CPT/HCPCS: 80305

== ENCOUNTER → 2022-12-20 08:39 | Outpatient (CLI) | payer MEDICAID, SELFPAY ==
--- NOTE | 2022-12-20 08:40 | CA_ITS ---
FINAL REPORT TECHNIQUE: Grayscale, color Doppler and duplex Doppler ultrasound of the kidneys, aorta and renal arteries was performed. Multiple velocities were measured. CLINICAL HISTORY: HTN, Hx- lt lung removal COPD, Smoker FINDINGS: Aorta velocity: 83 cm/sec Right kidney: 10.3 cm. There is no evidence of hydronephrosis. Right intrarenal RI: .62 Right renal artery velocity: 124 cm/sec. Right RAR (Renal Artery-Aortic Ratio): 1.5 Left Kidney: 11.3 cm. There is no evidence of hydronephrosis. Left intrarenal RI: .60 Left renal artery velocity: 117 cm/sec. Left RAR (Renal Artery-Aortic Ratio): 1.4 There are multiple bilateral renal cysts. IMPRESSION: No evidence of significant renal artery stenosis. CT angiogram or postcontrast MR angiogram would be more sensitive for evaluation of possible renal artery stenosis. Reviewed, Interpreted and Dictated by Glenn Reyna III, MD Transcribed by Jocelyne Rivas Authenticated and [facility]
== END ==
PROVIDERS: PCP Emergency Medicine; Visit Provider Emergency Medicine
DX: I10 Essential (primary) hypertension (principal); Z72.0 Tobacco use
CPT/HCPCS: 93976

== ENCOUNTER → 2023-01-02 08:01 | Outpatient (CLI) | payer MEDICAID, SELFPAY ==
[2023-01-02 22:28] LABS: Amphetamine/Metha Screen,Urine Negative ng/ml (<1000); Barbiturates Screen,Urine Negative ng/ml (<200)
[2023-01-02 22:29] LABS: Benzodiazepines Screen,Urine Negative ng/ml (<200)
[2023-01-02 22:30] LABS: Cannabinoid Screen,Urine Negative ng/ml (<50); Cocaine Screen,Urine Negative ng/ml (<300)
[2023-01-02 22:31] LABS: Methadone Screen,Urine Negative ng/ml (<300); Opiate Screen,Urine Negative ng/ml (<300)
[2023-01-02 22:32] LABS: Phencyclidine Screen,Urine Negative ng/ml (<25)
== END ==
PROVIDERS: PCP Emergency Medicine; Visit Provider Emergency Medicine
DX: M51.36 Other intervertebral disc degeneration, lumbar region (principal); Z79.899 Other long term (current) drug therapy
CPT/HCPCS: 80305

== ENCOUNTER 2023-01-07 21:47 | Emergency (ER) | payer MEDICAID, SELFPAY ==
[2023-01-07 21:47] VITALS: RESP 16; TEMP 36.7; O2SAT 99; BMI 30.2
--- NOTE | 2023-01-07 22:12 | XR_ITS ---
PROCEDURE INFORMATION: Exam: XR Chest Exam date and time: 01/07/2023 11:01 PM Age: 52 years old Clinical indication: Shortness of breath; Additional info: Cough, SOA TECHNIQUE: Imaging protocol: Radiologic exam of the chest. Views: 2 views. COMPARISON: CR XR CHEST 2V 04/30/2020 8:57 AM FINDINGS: Lungs: There are linear densities involving the right lower lung zone on the PA view and posterior lung base on the lateral view. These are similar to the prior exam and consistent with right middle and lower lobe scarring. No consolidation. Pleural spaces: Unremarkable. No pleural effusion. No pneumothorax. Heart/Mediastinum: Unremarkable. No cardiomegaly. Vasculature: Unremarkable. Bones/joints: The patient has undergone posterior hardware fusion of the upper thoracic spine since the prior study. No acute fracture. IMPRESSION: No acute findings.
--- NOTE | 2023-01-07 22:21 | HMH.EDGENADL ---
Discharge Plan Disposition Patient Disposition: Left Against Medical Advice Condition: Good Prescriptions Prescriptions: New prednisone 20 mg tablet 40 mg PO DAILY 5 Days Qty: 10 0RF doxycycline hyclate 100 mg capsule 100 mg PO BID 14 Days Qty: 28 0RF No Action lisinopril-hydrochlorothiazide 20-25 mg tablet 1 tab PO DAILY Qty: 30 2RF amlodipine [Norvasc] 5 mg tablet 5 mg PO QHS Qty: 90 5RF albuterol sulfate [ProAir HFA] 90 mcg/actuation HFA aerosol inhaler 1 inh INHALATION Q4-6H PRN (Reason: shortness of breath or wheezing) Qty: 8.5 5RF albuterol sulfate 2.5 mg /3 mL (0.083 %) solution for nebulization See Rx Instructions .ROUTE .COMPLEX Qty: 180 2RF Dose Instruction: INHALE CONTENTS OF 1 VIAL USING A NEBULIZER EVERY 4 TO 6 HOURS NEEDED FOR SHORTNESS OF BREATH OR WHEEZING. Rx Instructions: INHALE CONTENTS OF 1 VIAL USING A NEBULIZER EVERY 4 TO 6 HOURS NEEDED FOR SHORTNESS OF BREATH OR WHEEZING. Anoro Ellipta 62.5-25 mcg/actuation blister with device See Rx Instructions .ROUTE .COMPLEX Qty: 60 3RF Dose Instruction: INHALE 1 DOSE ONCE A DAY FOR COPD Rx Instructions: INHALE 1 DOSE ONCE A DAY FOR COPD pantoprazole 40 mg tablet,delayed release (DR/EC) See Rx Instructions .ROUTE .COMPLEX Qty: 90 3RF Dose Instruction: TAKE 1 TABLET 1 TIME EACH DAY Rx Instructions: TAKE 1 TABLET 1 TIME EACH DAY aspirin 81 mg tablet,delayed release (DR/EC) See Rx Instructions .ROUTE .COMPLEX Qty: 90 1RF Dose Instruction: TAKE 1 TABLET 1 TIME EACH DAY Rx Instructions: TAKE 1 TABLET 1 TIME EACH DAY bisoprolol fumarate 5 mg tablet See Rx Instructions .ROUTE .COMPLEX Qty: 90 1RF Dose Instruction: TAKE 1 TABLET 1 TIME EACH DAY Rx Instructions: TAKE 1 TABLET 1 TIME EACH DAY cyclobenzaprine 10 mg tablet See Rx Instructions .ROUTE .COMPLEX Qty: 90 2RF Dose Instruction: TAKE 1 TABLET 3 TIMES EACH DAY FOR MUSCLE SPASMS Rx Instructions: TAKE 1 TABLET 3 TIMES EACH DAY FOR MUSCLE SPASMS hydroxyzine pamoate 25 mg capsule See Rx Instructions .ROUTE .COMPLEX Qty: 60 2RF Dose Instruction: TAKE 1 CAPSULE 2 TIMES EACH DAY Rx Instructions: TAKE 1 CAPSULE 2 TIMES EACH DAY escitalopram oxalate 10 mg tablet See Rx Instructions .ROUTE .COMPLEX Qty: 90 0RF Dose Instruction: TAKE 1 TABLET 1 TIME EACH DAY FOR DEPRESSION Rx Instructions: TAKE 1 TABLET 1 TIME EACH DAY FOR DEPRESSION hydrocodone-acetaminophen 5-325 mg tablet 1 tab PO TID PRN (Reason: pain) Qty: 90 0RF Referrals Follow up/Referrals: Provider,Referral, MD [Primary Care Provider] - See instructions Clinical Impressions Clinical Impression: Left against medical advice Discharge ED Provider: Anabel Nguyen General Adult HPI General Chief complaint: Shortness of Breath/Dyspnea Stated complaint: SOA Time Seen by Provider: 01/07/23 22:03 Mode of Arrival: EMS Source of Information: Patient Limitations: No Limitations Description of Symptoms (Recalled from ER Triage Doc. by RN): pt c/o slight SOB, onset yesterday, hx of one lung, everyday smoker History of Present Illness HPI narrative: This patient is a 52-year-old male with a history of COPD, pneumothorax status post pneumonectomy, longstanding tobacco use, hypertension, and chronic back pain status post surgeries presenting to the emergency department for evaluation with concern for shortness of breath. Patient called EMS for difficulty breathing, and initially given breathing treatment which got him breathing better. He was wheezing at that time. Per EMS, he initially refused EMS transport and, but he started wheezing again prior to EMS leaving, so they brought him in for evaluation. They note he was stable in route. History is difficult to obtain from the patient, as he is combative and not cooperative. He states he has had symptoms a few days, got a shot at prim
[2023-01-07 22:30] VITALS: PULSE 95
[2023-01-07 23:00] VITALS: PULSE 90
--- NOTE | 2023-01-07 23:10 | PC.NURSE ---
pt. to radiology
[2023-01-07 23:23] LABS: Basophils # 0.1 K/mm3 (0-0.2); Basophils % 0.5 % (0.1-2.0); Eosinophils # 0.1 K/mm3 (0.0-0.4); Eosinophils % 0.8 % (0.1-12.0); Hematocrit 54.1 % (42.0-52.0); Lymphocytes # 3.6 K/mm3 (0.7-4.5); Lymphocytes % 24.1 % (10-50); Mean Corpuscular HGB Conc 35.5 g/dL (31.8-35.4); Mean Corpuscular Hemoglobin 33.9 pg (27.0-31.2); Mean Corpuscular Volume 95.5 fl (80-94); Mean Platelet Volume 8.3 fl (7.4-10.4); Monocytes # 0.9 K/mm3 (0.1-1.0); Monocytes % 5.6 % (1.7-9.3); Neutrophils # 10.4 K/mm3 (1.8-7.8); Platelet Count 294 K/mm3 (142-424); Red Blood Count 5.66 M/mm3 (4.60-6.20); Red Cell Distribution Width 15.5 % (11.5-17.5)
--- NOTE | 2023-01-07 23:24 | PC.NURSE ---
pt approached the nurses station stating that he is leaving and will not stay. Cally and encouraged him to stay. Cally RN explained the risks for leaving AMA. pt signed AMA form and left.
--- NOTE | 2023-01-07 23:26 | PC.NURSE ---
pt refused EKG
[2023-01-07 23:28] VITALS: BP 0/0; PULSE 0; RESP 0; TEMP -17.7; TEMP 0; O2SAT 0
[2023-01-07 23:28] LABS: MANUAL DIFFERENTIAL MANUAL DIFFERENTIAL (MANUAL DIFF)
[2023-01-07 23:37] LABS: Alanine Aminotransferase 20 U/L (12-78); Albumin/Globulin Ratio 1.3 (1.1-1.8); Alkaline Phosphatase 171 U/L (38-126); Anion Gap 24.2 mEq/L (5-15); Aspartate Amino Transferase 36 U/L (17-59); Bilirubin,Total 0.5 mg/dl (0.2-1.3); Blood Urea Nitrogen 14 mg/dl (9-20); Calcium 9.4 mg/dl (8.4-10.2); Carbon Dioxide 19 mmol/L (22.0-30.0); Chloride 104 mmol/L (98-107); Creatinine Clearance Estimated 97 mL/min (50-200); Estimated Glomerular Filt Rate 64 ml/min (>60); GFR (African American) 78 ML/MIN (>60); Globulin 3.8 g/dL (1.3-3.2); Glucose 147 mg/dl (74-100); Potassium 5.2 mmoL/L (3.5-5.1); Sodium 142 mmol/L (136-145); Total Protein,Serum 8.8 g/dl (6.3-8.2)
[2023-01-07 23:41] LABS: Eosinophils % 2 % (0-3); Lymphocytes % 29 % (10-50); Monocytes % 9 % (2-9); Neutrophils % 60 % (42-76); Platelet Estimate Normal; RBC Morphology Normal; Total Cells Counted 100
[2023-01-07 23:48] LABS: Hemoglobin 19.2 g/dL (14.1-18.0)
[2023-01-07 23:49] LABS: NT Pro Brain Natriuretic Pep. 24.1 pg/mL (0-125)
[2023-01-07 23:52] LABS: Troponin I < 0.01 ng/ml (0.00-0.034)
[2023-01-07 23:55] LABS: Procalcitonin 0.081 ng/mL (0.0-2.0)
--- NOTE | 2023-01-11 17:27 | PC.NURSE ---
Blood culture results show gram + cocci, pt notified, was given doxycycline on DC, states he is feeling better, MD Machado recommends him to fu with PCP or ER for repeat BC since the final results was not back if he starts to feel bad again. stated she would bring him back if he wasn't feeling better.
== END 2023-01-07 23:29 | disposition left against medical advice (07) ==
PROVIDERS: Emergency Provider Emergency Medicine
DX: R06.02 Shortness of breath (principal); J43.8 Other emphysema; F17.210 Nicotine dependence, cigarettes, uncomplicated; Z90.2 Acquired absence of lung [part of]; I11.0 Hypertensive heart disease with heart failure; I50.9 Heart failure, unspecified
CPT/HCPCS: 36415; 71046; 80053; 83880; 84145; 84484; 85007; 85025; 93005

== ENCOUNTER 2023-01-08 14:45 | Observation (INO) | payer MEDICAID, SELFPAY ==
[2023-01-08] VITALS (12 sets, daily range): BP systolic 117–175; BP diastolic 69–112; PULSE 84–108; RESP 17–25; TEMP 36.7–36.9; O2SAT 94–98; BMI 31.0; BMI 31.4
--- NOTE | 2023-01-08 14:45 | ECG_ITS ---
APPROVED REPORT Exam: Resting ECG HR:101 bpm ECG Measurements Heart Rate 101 AXES NH 164 P 58 QRSd 77 QRS 35 QT 325 T 29 QTc 383 Conclusion SINUS TACHYCARDIA MODERATE ST DEPRESSION [0.05+ mV ST DEPRESSION] ABNORMAL ECG UNCONFIRMED REPORT Electronically signed by : Luis Alberto Townsend MD 01/10/2023 20:15:12
--- NOTE | 2023-01-08 15:03 | XR_ITS ---
PROCEDURE INFORMATION: Exam: XR Chest Exam date and time: 01/08/2023 3:07 PM Age: 52 years old Clinical indication: Sternal or substernal pain; Prior surgery; Surgery date: 6+ months; Surgery type: Left pneumonectomy due to cysts on lung patient stated. Patient HX: Smoker; Additional info: Chest pain for a week. TECHNIQUE: Imaging protocol: Radiologic exam of the chest. Views: 1 view. COMPARISON: CR Chest 01/07/2023 11:01 PM FINDINGS: Lungs: Hyperexpanded lung doe consistent with COPD. Mild opacity in the right base may represent atelectasis or pneumonia. Pleural spaces: Unremarkable. No pleural effusion. No pneumothorax. Heart/Mediastinum: Mild cardiomegaly Bones/joints: Internal fixation device in the upper thoracic spine IMPRESSION: Mild opacity in the right base may represent atelectasis or pneumonia.
[2023-01-08 15:14] LABS: Basophils % 0.2 % (0.1-2.0); Eosinophils % 0.2 % (0.1-12.0); Hematocrit 51.6 % (42.0-52.0); Hemoglobin 17.9 g/dL (14.1-18.0); Lymphocytes # 1.9 K/mm3 (0.7-4.5); Lymphocytes % 10.1 % (10-50); Mean Corpuscular HGB Conc 34.6 g/dL (31.8-35.4); Mean Corpuscular Hemoglobin 33.4 pg (27.0-31.2); Mean Corpuscular Volume 96.3 fl (80-94); Monocytes # 0.9 K/mm3 (0.1-1.0); Monocytes % 4.7 % (1.7-9.3); Neutrophils # 15.8 K/mm3 (1.8-7.8); Neutrophils % 84.8 % (37.0-80.0); Platelet Count 263 K/mm3 (142-424); Red Blood Count 5.36 M/mm3 (4.60-6.20); Red Cell Distribution Width 15.3 % (11.5-17.5); White Blood Count 18.6 K/mm3 (4.8-10.8)
[2023-01-08 15:16] LABS: MANUAL DIFFERENTIAL MANUAL DIFFERENTIAL (MANUAL DIFF)
[2023-01-08 15:18] LABS: Alanine Aminotransferase 31 U/L (12-78); Albumin Level 4.7 g/dl (3.5-5.0); Albumin/Globulin Ratio 1.2 (1.1-1.8); Alkaline Phosphatase 208 U/L (38-126); Anion Gap 20.7 mEq/L (5-15); Aspartate Amino Transferase 35 U/L (17-59); Bilirubin,Total 0.3 mg/dl (0.2-1.3); Blood Urea Nitrogen 21 mg/dl (9-20); Calcium 9.5 mg/dl (8.4-10.2); Carbon Dioxide 23 mmol/L (22.0-30.0); Chloride 98 mmol/L (98-107); Creatinine Clearance Estimated 92 mL/min (50-200); Estimated Glomerular Filt Rate 58 ml/min (>60); GFR (African American) 71 ML/MIN (>60); Globulin 3.9 g/dL (1.3-3.2); Glucose 149 mg/dl (74-100); Potassium 4.7 mmoL/L (3.5-5.1); Sodium 137 mmol/L (136-145); Total Protein,Serum 8.6 g/dl (6.3-8.2)
[2023-01-08 15:23] LABS: D-Dimer 2.18 ug/mL (0.0-0.5)
[2023-01-08 15:36] LABS: Troponin I < 0.01 ng/ml (0.00-0.034)
--- NOTE | 2023-01-08 15:52 | HMH.EDGENADL ---
Discharge Plan Disposition Patient Disposition: Admitted Condition: Fair Chief Complaint: Chest Pain Prescriptions Prescriptions: No Action lisinopril-hydrochlorothiazide 20-25 mg tablet 1 tab PO DAILY Qty: 30 2RF amlodipine [Norvasc] 5 mg tablet 5 mg PO QHS Qty: 90 5RF albuterol sulfate [ProAir HFA] 90 mcg/actuation HFA aerosol inhaler 1 inh INHALATION Q4-6H PRN (Reason: shortness of breath or wheezing) Qty: 8.5 5RF albuterol sulfate 2.5 mg /3 mL (0.083 %) solution for nebulization See Rx Instructions .ROUTE .COMPLEX Qty: 180 2RF Dose Instruction: INHALE CONTENTS OF 1 VIAL USING A NEBULIZER EVERY 4 TO 6 HOURS NEEDED FOR SHORTNESS OF BREATH OR WHEEZING. Rx Instructions: INHALE CONTENTS OF 1 VIAL USING A NEBULIZER EVERY 4 TO 6 HOURS NEEDED FOR SHORTNESS OF BREATH OR WHEEZING. Anoro Ellipta 62.5-25 mcg/actuation blister with device See Rx Instructions .ROUTE .COMPLEX Qty: 60 3RF Dose Instruction: INHALE 1 DOSE ONCE A DAY FOR COPD Rx Instructions: INHALE 1 DOSE ONCE A DAY FOR COPD pantoprazole 40 mg tablet,delayed release (DR/EC) See Rx Instructions .ROUTE .COMPLEX Qty: 90 3RF Dose Instruction: TAKE 1 TABLET 1 TIME EACH DAY Rx Instructions: TAKE 1 TABLET 1 TIME EACH DAY aspirin 81 mg tablet,delayed release (DR/EC) See Rx Instructions .ROUTE .COMPLEX Qty: 90 1RF Dose Instruction: TAKE 1 TABLET 1 TIME EACH DAY Rx Instructions: TAKE 1 TABLET 1 TIME EACH DAY bisoprolol fumarate 5 mg tablet See Rx Instructions .ROUTE .COMPLEX Qty: 90 1RF Dose Instruction: TAKE 1 TABLET 1 TIME EACH DAY Rx Instructions: TAKE 1 TABLET 1 TIME EACH DAY cyclobenzaprine 10 mg tablet See Rx Instructions .ROUTE .COMPLEX Qty: 90 2RF Dose Instruction: TAKE 1 TABLET 3 TIMES EACH DAY FOR MUSCLE SPASMS Rx Instructions: TAKE 1 TABLET 3 TIMES EACH DAY FOR MUSCLE SPASMS hydroxyzine pamoate 25 mg capsule See Rx Instructions .ROUTE .COMPLEX Qty: 60 2RF Dose Instruction: TAKE 1 CAPSULE 2 TIMES EACH DAY Rx Instructions: TAKE 1 CAPSULE 2 TIMES EACH DAY escitalopram oxalate 10 mg tablet See Rx Instructions .ROUTE .COMPLEX Qty: 90 0RF Dose Instruction: TAKE 1 TABLET 1 TIME EACH DAY FOR DEPRESSION Rx Instructions: TAKE 1 TABLET 1 TIME EACH DAY FOR DEPRESSION hydrocodone-acetaminophen 5-325 mg tablet 1 tab PO TID PRN (Reason: pain) Qty: 90 0RF prednisone 20 mg tablet 40 mg PO DAILY 5 Days Qty: 10 0RF doxycycline hyclate 100 mg capsule 100 mg PO BID 14 Days Qty: 28 0RF Referrals Follow up/Referrals: Provider,Referral, MD [Primary Care Provider] - See instructions Clinical Impressions Clinical Impression: COPD (chronic obstructive pulmonary disease), Acute on chronic respiratory failure with hypoxemia, ALEYDA (acute kidney injury) Pneumonia Qualifiers: Pneumonia type: due to unspecified organism Laterality: right Lung location: lower lobe of lung Qualified Code(s): J18.9 - Pneumonia, unspecified organism Discharge ED Provider: Andrew Pearce General Adult HPI <Andrew Pearce MD - Last Filed: 01/08/23 16:04> General Chief complaint: Chest Pain Stated complaint: CP Time Seen by Provider: 01/08/23 14:51 Mode of Arrival: EMS Source of Information: Patient Limitations: No Limitations Description of Symptoms (Recalled from ER Triage Doc. by RN): Presents to ED with c/o SOA and midsternal chest pain upon inspiration that started 4 days ago and has progressively gotten worse. Patient denies cardiac hx. 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 Denies O2 use at home. History of Present Illness HPI narrative: 52-year-old male history of hypertension, hyperlipidemia, previous pneumothorax with current tobacco use disorder not currently on home oxygen presenting with shortness of breath. Patient states that shortness of breath has been getting worse over the past couple of days. Associated with dry c
[2023-01-08 15:53] LABS: Lymphocytes % 9 % (10-50); Monocytes % 1 % (2-9); Neutrophils % 90 % (42-76); Platelet Estimate Normal; RBC Morphology Normal; Total Cells Counted 100
--- NOTE | 2023-01-08 15:54 | CT_ITS ---
PROCEDURE INFORMATION: Exam: CTA Chest With Contrast Exam date and time: 01/08/2023 5:24 PM Age: 52 years old Clinical indication: Dyspnea and wheezing; Additional info: Worsening SOA, dimer, wheezing. TECHNIQUE: Imaging protocol: Computed tomographic angiography of the chest with contrast. Exam focused on the arteries. 3D rendering (Not supervised by radiologist): MIP and/or 3D reconstructed images were created by the technologist. Radiation optimization: All CT scans at this facility use at least one of these dose optimization techniques: automated exposure control; mA and/or kV adjustment per patient size (includes targeted exams where dose is matched to clinical indication); or iterative reconstruction. Contrast material: ISOVUE; Contrast volume: 75 ml; Contrast route: INTRAVENOUS (IV); REPORTING DATA: Count of CT and Cardiac NM exams in prior 12 months: This patient has received 0 known CTs and 0 known cardiac nuclear medicine studies in the 12 months prior to the current study. COMPARISON: CT CHEST WO CON 11/01/2019 1:36 PM FINDINGS: Pulmonary arteries: No visualized pulmonary embolus. The subsegmental pulmonary arteries are subobtimally demonstrated, and cannot be completely cleared. Aorta: Unremarkable. No aortic aneurysm. No aortic dissection. Lungs: Moderate primarily centrilobular emphysema without pneumothorax. Atelectasis and pleuroparenchymal scarring most evident right lower lobe. Pleural spaces: No lobar consolidation, pleural effusion or pulmonary edema. Heart: Borderline enlarged heart. No significant coronary artery calcifications. Lymph nodes: Unremarkable. No enlarged lymph nodes. Pancreas: Limited edematous infiltration fat around pancreas suggesting pancreatitis. No pseudocyst. Kidneys and ureters: Renal probable simple cysts not fully visualized or characterized currently, largest on the right 2.8 cm. Bones/joints: No acute fracture. Soft tissues: Unremarkable. IMPRESSION: 1. No visualized pulmonary embolus. The subsegmental pulmonary arteries are subobtimally demonstrated, and cannot be completely cleared. 2. Moderate primarily centrilobular emphysema without pneumothorax. 3. No lobar consolidation, pleural effusion or pulmonary edema. 4. Limited edematous infiltration fat around pancreas suggesting pancreatitis. No pseudocyst. COMMENTS: In the absence of a history or active diagnosis of lung cancer, it is recommended that this patient with emphysema be evaluated for enrollment in a low dose CT lung cancer screening program.
[2023-01-08 16:15] LABS: VBG Base Excess -3.2 mmol/L (-2.4-2.3); VBG HCO3 22.6 mmol/L (23-30); VBG Oxygen Saturation 87.6 % (50-70); VBG PCO2 42.8 mmol/L (35-51); VBG PH 7.34 mmol/L (7.31-7.41); VBG PO2 52.4 mmol/L (28-40); VBG Total CO2 23.9 mmol/L (23-27)
--- NOTE | 2023-01-08 16:25 | PC.NURSE ---
went with radiology
[2023-01-08 16:28] LABS: Lactic Acid 3.6 mmol/L (0.7-2.1)
--- NOTE | 2023-01-08 17:03 | PC.NURSE ---
house moving supervisor called for bed placement
--- NOTE | 2023-01-08 17:04 | PC.NURSE ---
Rounded on patient; call light within reach of patient.
--- NOTE | 2023-01-08 17:46 | EXP.HP ---
History of Present Illness *Admission Date: 01/08/23 *Reason for visit:: Shortness of breath cough *History of present illness: Mr. Tobar is a 52-year-old male with extensive smoking history, COPD, hypertension, history of recurrent pneumothoraces necessitating partial lung resection. Presents to the ER with complaint of shortness of breath and pain from coughing. Symptoms of been going on for the better part of the week. His has similar symptoms that began before his. She saw her PCP and was negative for COVID and flu. His symptoms have just progressed to the point that he needed to come in for evaluation. On arrival was meeting sepsis criteria with, tachypnea, leukocytosis. Treated with nebulizer in the ambulance and in the ER. Also complaining of some chest pain, worse with his cough. No known cardiac history other than hypertension and hyperlipidemia. Patient placed on 2 L nasal cannula for comfort. On evaluation in the ER chest imaging concerning for some lower lobe increased pulmonary markings. CTA of the chest showed no PEs. White cell count of 18.6 kidney function with creatinine 1.3 and BUN 21, up from his normal baseline of 0.9. Lactate 3.6 on admission. Remainder of labs nonactionable. ER initiated on nebulizer and antibiotics along with sepsis work-up. Consulted medicine for admission. On arrival to the floor, patient has been weaned to room air. Denies O2 use at home. Smokes a pack a day, has smoked since he was [age]. Denies any nausea vomiting or diarrhea in the past 24 hours. No fever or chills. No loss of consciousness or syncope. at bedside is also coughing with a dry cough [facility] Disclaimer: The information contained in this section may have been updated after the patient was seen, as this information can be updated by other users. Medical History Cancer screening Dyspnea on exertion History of pneumothorax Pulmonary emphysema Shortness of breath Smoking greater than 20 pack years Surgical History H/O pneumonectomy History of hernia repair Previous back surgery Family History COPD (chronic obstructive pulmonary disease) Cancer Asthma Social History Smoking Status: Never smoker second hand exposure: Yes alcohol intake: former substance use type: former substance user current occupational status: disabled Travel in the last 8 weeks: None household members: family housing: house current occupational exposures/hazards: No Review of Systems Review of Systems Review of systems (narrative): 14 point review of systems performed, pertinent positives and negatives as per HPI Meds Home Medications and Allergies Home Medications Medication Instructions Recorded Confirmed Type amlodipine 5 mg tablet (Norvasc) 5 mg PO QHS #90 tabs 04/12/21 01/08/23 Rx umeclidinium 62.5 mcg-vilanterol See Rx Instructions .Route 02/16/22 01/08/23 Rx 25 mcg/actuation powdr for .COMPLEX #60 blisters inhalation (Anoro Ellipta) pantoprazole 40 mg tablet,delayed See Rx Instructions .Route 03/28/22 01/08/23 Rx release .COMPLEX #90 tabs aspirin 81 mg tablet,delayed See Rx Instructions .Route 07/12/22 01/08/23 Rx release .COMPLEX #90 tabs bisoprolol fumarate 5 mg tablet See Rx Instructions .Route 07/12/22 01/08/23 Rx .COMPLEX #90 tabs cyclobenzaprine 10 mg tablet See Rx Instructions .Route 10/10/22 01/08/23 Rx .COMPLEX #90 tabs escitalopram oxalate 10 mg tablet See Rx Instructions .Route 12/03/22 01/08/23 Rx .COMPLEX #90 tabs hydroxyzine pamoate 25 mg capsule See Rx Instructions .Route 12/03/22 01/08/23 Rx .COMPLEX #60 caps albuterol sulfate 2.5 mg/3 mL See Rx Instructions .Route 12/05/22 01/08/23 Rx (0.083 %) solution for nebulization .COMPLEX #180 mL albuterol sulfate 90 mcg/actuation 1 inh inhalation Q4-6H PRN
--- NOTE | 2023-01-08 18:10 | PC.NURSE ---
arrived by stretcher from ED
[2023-01-08 18:58] LABS: Adenovirus,PCR Not Detected (NotDetected); Coronavirus 19, PCR Not Detected (NotDetected); Coronavirus 229E Not Detected (NotDetected); Coronavirus NL63 Not Detected (NotDetected); Coronavirus OC43 Not Detected (NotDetected); Coronovirus HKU1,PCR Not Detected (NotDetected); Human Metapneumovirus Not Detected (NotDetected); Influenza A, PCR Not Detected (NotDetected); Influenza AH1, 2009 Not Detected (NotDetected); Influenza AH1, PCR Not Detected (NotDetected); Influenza AH3,PCR Not Detected (NotDetected); Influenza B, PCR Not Detected (NotDetected); Parainfluenza 1, PCR Not Detected (NotDetected); Parainfluenza 2, PCR Not Detected (NotDetected); Parainfluenza 3, PCR Not Detected (NotDetected); Parainfluenza 4, PCR Not Detected (NotDetected); Respiratory Syncytial Virus Not Detected (NotDetected); Rhinovirus/Enterovirus Not Detected (NotDetected)
[2023-01-08 19:15] LABS: Troponin I < 0.01 ng/ml (0.00-0.034)
[2023-01-08 20:16] LABS: Reflex Lactic Add Lactic Reflex
[2023-01-08 20:53] LABS: Lactic Acid Follow Up (RFLX 1) 5.7 mmol/L (0.7-2.1)
[2023-01-08 21:04] LABS: Troponin I < 0.01 ng/ml (0.00-0.034)
--- NOTE | 2023-01-08 21:17 | PC.NURSE ---
TROPONIN AND LACTIC ACIS DRAWN AT 2030. LACTIC ACID CAME BACK 5.7. Aneta NOTIFIED. TO REPEAT LACTIC ACID AT 2330. LR 1 LITER INITIATED AT 100 ML/HR/PUMP
[2023-01-08 22:39] LABS: Reflex Lactic (2 hrs) Add Lactic Reflex
[2023-01-08 23:05] LABS: Lactic Acid Follow up (RFLX 2) 3.8 mmol/L (0.7-2.1)
[2023-01-09 00:52] VITALS: PULSE 89
[2023-01-09 00:53] VITALS: PULSE 86
[2023-01-09 02:05] LABS: Lactic Acid 2.8 mmol/L (0.7-2.1)
[2023-01-09 04:00] VITALS: BP 158/103; PULSE 109; RESP 22; TEMP 36.7; O2SAT 96; BMI 31.1
--- NOTE | 2023-01-09 05:18 | PC.NURSE ---
AT 0350 MEDICATED WITH NORCO 5/325MG 1 TAB PO FOR C/O BACK PAIN 09/05 WHICH WAS EFFECTIVE. LACTIC ACID CLIMBED TO 5.7 EARLY IN THE SHIFT BUT IS NOW 2.8. AT BEDSIDE.
[2023-01-09 05:26] VITALS: BP 156/98
[2023-01-09 06:17] LABS: Basophils % 0.1 % (0.1-2.0); Eosinophils % 0.1 % (0.1-12.0); Hematocrit 47.8 % (42.0-52.0); Lymphocytes # 1.3 K/mm3 (0.7-4.5); Mean Corpuscular HGB Conc 35.6 g/dL (31.8-35.4); Mean Corpuscular Hemoglobin 33.7 pg (27.0-31.2); Mean Corpuscular Volume 94.7 fl (80-94); Mean Platelet Volume 8.5 fl (7.4-10.4); Monocytes # 0.5 K/mm3 (0.1-1.0); Neutrophils # 14.8 K/mm3 (1.8-7.8); Neutrophils % 88.9 % (37.0-80.0); Platelet Count 254 K/mm3 (142-424); Red Blood Count 5.04 M/mm3 (4.60-6.20); Red Cell Distribution Width 15.4 % (11.5-17.5); White Blood Count 16.6 K/mm3 (4.8-10.8)
[2023-01-09 06:20] LABS: MANUAL DIFFERENTIAL MANUAL DIFFERENTIAL (MANUAL DIFF)
[2023-01-09 06:25] LABS: Alanine Aminotransferase 25 U/L (12-78); Albumin Level 4.4 g/dl (3.5-5.0); Albumin/Globulin Ratio 1.3 (1.1-1.8); Alkaline Phosphatase 194 U/L (38-126); Anion Gap 15.4 mEq/L (5-15); Aspartate Amino Transferase 31 U/L (17-59); Bilirubin,Total 0.4 mg/dl (0.2-1.3); Blood Urea Nitrogen 14 mg/dl (9-20); Calcium 9.5 mg/dl (8.4-10.2); Carbon Dioxide 25 mmol/L (22.0-30.0); Chloride 99 mmol/L (98-107); Creatinine Clearance Estimated 130 mL/min (50-200); Estimated Glomerular Filt Rate 89 ml/min (>60); GFR (African American) 108 ML/MIN (>60); Globulin 3.5 g/dL (1.3-3.2); Glucose 150 mg/dl (74-100); Magnesium 2.4 mg/dl (1.6-2.3); Potassium 4.4 mmoL/L (3.5-5.1); Sodium 135 mmol/L (136-145); Total Protein,Serum 7.9 g/dl (6.3-8.2)
[2023-01-09 06:34] VITALS: PULSE 74; PULSE 78
[2023-01-09 06:36] LABS: Lymphocytes % 6 % (10-50); Monocytes % 3 % (2-9); Neutrophils % 91 % (42-76); Platelet Estimate Normal; RBC Morphology Normal; Total Cells Counted 100
[2023-01-09 07:37] VITALS: BP 187/119; PULSE 101; RESP 20; TEMP 36.8; O2SAT 95
--- NOTE | 2023-01-09 07:54 | HMH.PHAINT1 ---
Pharmacy Intervention Comments: Med reconciliation completed using pharmacy fill information and patient and interview. Anoro not filled since 02/17, but they insists that he is still taking it
--- NOTE | 2023-01-09 08:20 | EXP.SEPSISRE ---
[facility] Tissue Perfusion Eval Sepsis Re-Evaluation Performed: Yes Date Performed: 01/08/23 Time Performed: 18:30
--- NOTE | 2023-01-09 09:07 | EXP.DC.SUM ---
General Admission date:: 01/08/23 Discharge date: 01/09/23 HPI HPI HPI: Mr. Menard is a 52-year-old male with extensive smoking history, COPD, hypertension, history of recurrent pneumothoraces necessitating partial lung resection. Presents to the ER with complaint of shortness of breath and pain from coughing. Symptoms of been going on for the better part of the week. His has similar symptoms that began before his. She saw her PCP and was negative for COVID and flu. His symptoms have just progressed to the point that he needed to come in for evaluation. On arrival was meeting sepsis criteria with, tachypnea, leukocytosis. Treated with nebulizer in the ambulance and in the ER. Also complaining of some chest pain, worse with his cough. No known cardiac history other than hypertension and hyperlipidemia. Patient placed on 2 L nasal cannula for comfort. On evaluation in the ER chest imaging concerning for some lower lobe increased pulmonary markings. CTA of the chest showed no PEs. White cell count of 18.6 kidney function with creatinine 1.3 and BUN 21, up from his normal baseline of 0.9. Lactate 3.6 on admission. Remainder of labs nonactionable. ER initiated on nebulizer and antibiotics along with sepsis work-up. Consulted medicine for admission. On arrival to the floor, patient has been weaned to room air. Denies O2 use at home. Smokes a pack a day, has smoked since he was [age]. Denies any nausea vomiting or diarrhea in the past 24 hours. No fever or chills. No loss of consciousness or syncope. at bedside is also coughing with a dry cough Hospital Course Hospital Course Hospital Course: 52-year-old male with extensive smoking history, COPD, previous pneumothoraces status post partial lung resection. Presents with symptoms of sepsis including tachycardia, tachypnea, leukocytosis and suspected pneumonia. ER consulted medicine. Extensive discussion about patient, respiratory failure, his need for inpatient antibiotics and nebulizer treatments. Necessitating oxygen on presentation. Medicine agreed to admit for further management. Better by morning. Stable for discharge home. Problems addressed as follows: Sepsis COPD exacerbation secondary to pneumonia - Meeting criteria with tachycardia, tachypnea, leukocytosis. Presumed respiratory infection. Initiated on 2 g ceftriaxone in the ER, sepsis bolus administered. Treatment for COPD exacerbation. Patient weaned to room air with good sats over the night of admission. Chest imaging reviewed with some perihilar increased markings right lower lobe suspicious for early pneumonia. Repeat labs improving by morning. Plan to continue steroids and antibiotics for 5 days. Respiratory panel negative. Stable for discharge home. ALEYDA -Creatinine and BUN elevated, creatinine 1.3. Baseline 0.9. Returned to baseline by morning. Chronic pain: Continue home hydrocodone for chronic back pain. Patient has had surgery and has rods in place HyperTension: continued home amlodipine 5 mg daily, bisoprolol 5 mg daily, lisinopril HCTZ 20/25 daily Depression/anxiety: On Lexapro at home, formulary substitution with citalopram 20 mg CAD/prophylaxis: Continue aspirin 81 mg daily Exam Data for Last 24 hours Vital signs and Labs for Last 24 Hours: Temp Pulse Resp BP Pulse Ox O2 Del Method O2 Flow Rate 98.3 F 101 H 20 187/119 H 95 Room Air 2 01/09/23 07:37 01/09/23 07:37 01/09/23 07:37 01/09/23 07:37 01/09/23 07:37 01/09/23 07:37 01/08/23 18:04 Laboratory Results - last 24 hr 01/08/23 15:00: WBC 18.6 H, RBC 5.36, Hgb 17.9, Hct 51.6, MCV 96.3 H, MCH 33.4 H, MCHC 34.6, RDW 15.3, Plt Count 263, MPV 8.0, Neut % (Auto) 84.8 H, Lymph % (Auto) 10.1, [place] % (Auto) 4.7, Eos % (Auto) 0.2, Baso % (Auto) 0.2, Neut # (Auto) 15.8 H, Lymph # (Auto) 1.9, [place] # (Auto) 0.9, Eos # (Auto) 0.0, Baso # (Auto) 0.0, Total Counted 100, Neutrophils % (Manual) 90 H, Lymphocytes % (Manual) 9 L, Monocy
--- NOTE | 2023-01-10 12:51 | CARE MANAGER ---
Spoke with patient related to hospital discharge. He states he is doing a little better. He picked up his new medications and is aware of follow up with Dr. Alvarado. BEATRIZ Groves
--- NOTE | 2023-01-14 18:36 | PC.NURSE ---
blood culture results on worklist, notified Dr. Lewis, states contaminant , no action needed.
== END 2023-01-09 11:30 | disposition home or self-care (01) ==
LOC: ER 17:05 → 2ND 17:16
PROVIDERS: Admitting Provider Internal Medicine Adolescent Medicine; Emergency Provider Emergency Medicine; Visit Provider Internal Medicine Adolescent Medicine
DX: J18.9 Pneumonia, unspecified organism (principal); J44.1 Chronic obstructive pulmonary disease with (acute) exacerbation; N17.9 Acute kidney failure, unspecified; I10 Essential (primary) hypertension; F17.210 Nicotine dependence, cigarettes, uncomplicated; Z79.899 Other long term (current) drug therapy
CPT/HCPCS: 36415; 71045; 71046; 71275; 80053; 82803; 83605; 83735; 83880; 84145; 84484; 85007; 85025; 85378; 87040; 87081; 87632; 87635; 93005; 94640; 99291; G0378; J0456; J0696; J3475; Q9967

== ENCOUNTER → 2023-02-03 09:37 | Outpatient (CLI) | payer MEDICAID, SELFPAY ==
[2023-02-03 23:54] LABS: Amphetamine/Metha Screen,Urine Negative ng/ml (<1000)
[2023-02-03 23:55] LABS: Barbiturates Screen,Urine Negative ng/ml (<200)
[2023-02-03 23:56] LABS: Benzodiazepines Screen,Urine Negative ng/ml (<200); Cannabinoid Screen,Urine Negative ng/ml (<50)
[2023-02-03 23:57] LABS: Cocaine Screen,Urine Negative ng/ml (<300); Methadone Screen,Urine Negative ng/ml (<300)
[2023-02-03 23:58] LABS: Opiate Screen,Urine Negative ng/ml (<300)
[2023-02-03 23:59] LABS: Phencyclidine Screen,Urine Negative ng/ml (<25)
[2023-02-12 07:08] LABS: Opiates Negative ng/mL (Cutoff=100)
== END ==
PROVIDERS: PCP Internal Medicine; Visit Provider Internal Medicine
DX: Z79.899 Other long term (current) drug therapy (principal); Z79.891 Long term (current) use of opiate analgesic
CPT/HCPCS: 80305; 80361; G0480

== ENCOUNTER 2023-03-03 10:08 | Outpatient (CLI) | payer MEDICAID, SELFPAY ==
[2023-03-03 13:52] LABS: Amphetamine/Metha Screen,Urine Negative ng/ml (<1000); Barbiturates Screen,Urine Negative ng/ml (<200); Benzodiazepines Screen,Urine Negative ng/ml (<200); Cannabinoid Screen,Urine Negative ng/ml (<50); Cocaine Screen,Urine Negative ng/ml (<300); Methadone Screen,Urine Negative ng/ml (<300); Opiate Screen,Urine Negative ng/ml (<300); Phencyclidine Screen,Urine Negative ng/ml (<25)
== END 2023-03-03 23:59 ==
LOC: LAB.DROPOF 03-04 10:09
PROVIDERS: PCP Nurse Practitioner Family; Visit Provider Nurse Practitioner Family
DX: Z79.891 Long term (current) use of opiate analgesic (principal)
CPT/HCPCS: 80307

== ENCOUNTER 2023-03-22 10:26 | Outpatient (CLI) | payer MEDICAID, SELFPAY ==
--- NOTE | 2023-03-22 10:26 | CT_ITS ---
FINAL REPORT TECHNIQUE: The patient was injected with IV contrast. Axial images were obtained through the chest in a PE protocol. 3-D reconstruction images were also performed. Individualized dose reduction techniques using automated exposure control or adjustment of the MA and/or KV according to patient's size were employed. CLINICAL HISTORY: dyspnea COMPARISON: 01/08/2023 FINDINGS: Mediastinal vasculature is adequately opacified. No pulmonary artery filling defects are identified to suggest PE. There is no aortic dissection. There is no axillary adenopathy. There is no hilar or mediastinal adenopathy. The heart size is normal. There is no pericardial or pleural effusion. There is patchy consolidation at the right lung base, slightly more evident on today's exam than on the prior exam of December 2022. There is a right renal cyst partially visualized that measures up to 2.2 cm in diameter. IMPRESSION: No pulmonary embolus or dissection. Patchy consolidation at the right lung base, slightly more evident on today's exam than on the prior exam of December 2022. Reviewed, Interpreted and Dictated by Justo Faulkner MD Transcribed by Danni Harman Authenticated and [facility]
[2023-03-22 11:07] LABS: Blood Urea Nitrogen 16 mg/dl (9-20); Estimated Glomerular Filt Rate 71 ml/min (>60); GFR (African American) 86 ML/MIN (>60)
[2023-03-22] MEDS: 0.9 % SODIUM CHLORIDE 50 ML VIAL IV (12:03)
[2023-03-22] MEDS: SODIUM CHLORIDE 0.9% 10ML SYR (RAD ONLY) 10 ML IV (12:03)
[2023-03-22] MEDS: IOPAMIDOL-370 (76%);100ML BOTTLE 70 ML IV (12:04)
== END 2023-03-22 23:59 ==
LOC: RAD 10:26
PROVIDERS: Physician Assistant; PCP Nurse Practitioner Family; Visit Provider Physician Assistant
DX: R06.00 Dyspnea, unspecified (principal); I10 Essential (primary) hypertension
CPT/HCPCS: 36415; 71275; 82565; 84520; Q9967

== ENCOUNTER 2023-05-22 11:42 | Emergency (ER) | payer MEDICAID, SELFPAY ==
[2023-05-22 11:44] VITALS: BP 127/65; PULSE 106; RESP 18; TEMP 36.7; O2SAT 98; BMI 30.2
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
--- NOTE | 2023-05-22 12:50 | PC.NURSE ---
went to lobby to update on pt care, is not in lobby at this time. Registration aware that when pt returns I will come back to give an update
[2023-05-22] MEDS: KETOROLAC 30MG/ML VIAL 15 MG IV (12:58)
[2023-05-22] MEDS: METHOCARBAMOL 500MG TABLET 500 MG PO (12:59)
[2023-05-22] MEDS: LIDOCAINE 5% TRANSDERMAL PATCH 1 EACH TP (12:59)
[2023-05-22] MEDS: ACETAMINOPHEN 500MG TAB 1000 MG PO (12:59)
[2023-05-22 13:02] VITALS: BP 111/66; PULSE 112; RESP 18; O2SAT 97
[2023-05-22 13:12] LABS: Alanine Aminotransferase 23 U/L (12-78); Albumin Level 4.6 g/dl (3.5-5.0); Albumin/Globulin Ratio 1.5 (1.1-1.8); Alkaline Phosphatase 112 U/L (38-126); Anion Gap 12.6 mEq/L (5-15); Aspartate Amino Transferase 29 U/L (17-59); Bilirubin,Total 0.5 mg/dl (0.2-1.3); Blood Urea Nitrogen 45 mg/dl (9-20); Carbon Dioxide 20 mmol/L (22.0-30.0); Chloride 106 mmol/L (98-107); Creatinine Clearance Estimated 60 mL/min (50-200); Estimated Glomerular Filt Rate 38 ml/min (>60); GFR (African American) 45 ML/MIN (>60); Globulin 3.1 g/dL (1.3-3.2); Glucose 125 mg/dl (74-100); Potassium 5.6 mmoL/L (3.5-5.1); Sodium 133 mmol/L (136-145); Total Protein,Serum 7.7 g/dl (6.3-8.2)
--- NOTE | 2023-05-22 13:12 | PC.NURSE ---
Pt family updated by Manny Valencia RN
[2023-05-22 13:25] LABS: Microscopic, Urine URINE MICROSCOPIC (MICROSCOPIC)
[2023-05-22 13:25] LABS: Basophils # 0.1 K/mm3 (0-0.2); Basophils % 0.8 % (0.1-2.0); Eosinophils # 0.2 K/mm3 (0.0-0.4); Eosinophils % 2.2 % (0.1-12.0); Hematocrit 40.5 % (42.0-52.0); Hemoglobin 13.6 g/dL (14.1-18.0); Lymphocytes # 2.4 K/mm3 (0.7-4.5); Lymphocytes % 29.7 % (10-50); Mean Corpuscular HGB Conc 33.7 g/dL (31.8-35.4); Mean Corpuscular Hemoglobin 35.2 pg (27.0-31.2); Mean Corpuscular Volume 104.7 fl (80-94); Mean Platelet Volume 8.8 fl (7.4-10.4); Monocytes # 0.4 K/mm3 (0.1-1.0); Monocytes % 5.3 % (1.7-9.3); Neutrophils % 62.1 % (37.0-80.0); Platelet Count 330 K/mm3 (142-424); Red Blood Count 3.87 M/mm3 (4.60-6.20); Red Cell Distribution Width 15.4 % (11.5-17.5); White Blood Count 8.1 K/mm3 (4.8-10.8)
[2023-05-22 13:30] LABS: Appearance,Urine CLEAR (Clear); Bilirubin,Urine Negative (Negative); Blood, Urine Negative (Negative); Color,Urine YELLOW (Yellow); Glucose,Urine (UA) Negative (Negative); Ketones,Urine Negative (Negative); Leukocyte Esterase,Urine Negative (Negative); Nitrate,Urine Negative (Negative); Protein,Urine Negative (Negative); Specific Gravity, Urine 1.015 (1.005-1.030); Urobilinogen,Urine 0.2 EU/dl (0.2)
[2023-05-22] MEDS: LACTATED RINGERS 1000ML 1,000 ML 999 ML IV (13:40)
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
[2023-05-22 15:00] VITALS: BP 92/56; PULSE 91; O2SAT 100
[2023-05-22] MEDS: OXYCODONE 5MG IMMEDIATE RELEASE TABLET 5 MG PO (15:09)
--- NOTE | 2023-05-22 16:30 | PC.NURSE ---
teaching provided about incentive spirometry. pt was able to reach 900.
[2023-05-22 16:39] VITALS: BP 110/80; PULSE 93; RESP 16; TEMP 36.6; O2SAT 94
== END 2023-05-22 16:51 | disposition home or self-care (01) ==
PROVIDERS: Emergency Medicine; Emergency Provider Emergency Medicine; PCP Nurse Practitioner Family
DX: S22.41XA Multiple fractures of ribs, right side, initial encounter for closed fracture (principal); M54.9 Dorsalgia, unspecified; E87.1 Hypo-osmolality and hyponatremia; E87.5 Hyperkalemia; N17.9 Acute kidney failure, unspecified; F17.210 Nicotine dependence, cigarettes, uncomplicated; Y04.2XXA Assault by strike against or bumped into by another person, initial encounter
CPT/HCPCS: 70450; 71250; 72125; 72128; 72131; 72192; 74176; 80053; 81001; 85025; 96361; 96374; 99285

== ENCOUNTER 2023-06-04 21:25 | Observation (INO) | payer OTHER, SELFPAY ==
[2023-06-04 21:25] VITALS: BP 130/86; PULSE 116; RESP 18; TEMP 36.3; O2SAT 95; BMI 30.2
--- NOTE | 2023-06-04 21:36 | CT_ITS ---
PROCEDURE INFORMATION: Exam: CTA Chest With Contrast Exam date and time: 06/04/2023 10:02 PM Age: 53 years old Clinical indication: Pain; Chest pressure; Additional info: Cp rad to back TECHNIQUE: Imaging protocol: Computed tomographic angiography of the chest with contrast. Exam focused on the arteries. 3D rendering (Not supervised by radiologist): MIP and/or 3D reconstructed images were created by the technologist. Radiation optimization: All CT scans at this facility use at least one of these dose optimization techniques: automated exposure control; mA and/or kV adjustment per patient size (includes targeted exams where dose is matched to clinical indication); or iterative reconstruction. Contrast material: ISOUVE 370; Contrast volume: 100 ml; Contrast route: INTRAVENOUS (IV); COMPARISON: 1. CT ANGIO CHEST PE PROTOCOL 03/22/2023 11:[address] ANGIO CHEST PE PROTOCOL 01/08/2023 5:[address] CHEST WO CON 05/22/2023 1:39 PM FINDINGS: Pulmonary arteries: Normal. No pulmonary emboli. Aorta: There is atherosclerotic disease of the visualized aorta and its major branch vessels. The aorta is normal caliber without focal abnormality. No dissection or aneurysm. Lungs: Parenchymal consolidations at the bases could be on the basis of atelectasis but underlying infection is not completely excluded. There are scattered areas of emphysema throughout the lungs. Scattered areas of bronchial wall thickening which are likely chronic inflammatory. A few areas of subpleural reticulation are noted, nonspecific. Calcified granuloma in the left lower lobe. Pleural spaces: Unremarkable. No pneumothorax. No pleural effusion. Heart: Unremarkable. No cardiomegaly. No pericardial effusion. Lymph nodes: There are calcified mediastinal lymph nodes likely reflecting prior granulomatous disease. Pancreas: There is fatty replacement of the pancreas. There is peripancreatic inflammatory change that is new from the examination three months prior. Kidneys and ureters: Partially visualized right renal cyst. Bones/joints: There is diffuse degenerative disease of the visualized osseous structures. Posterior thoracic fusion hardware is noted. Soft tissues: There is bilateral gynecomastia. IMPRESSION: 1. Peripancreatic inflammatory change is partially imaged but is new from the examination three months prior, correlate with any concern for pancreatitis. 2. The aorta is normal caliber without focal abnormality. No dissection or aneurysm. 3. Extensive chronic changes including emphysema. COMMENTS: 1. Consistent with the [employer]'s Incidental Findings Committee white paper (J Am Nancy Radiol 2018): Any incidental renal lesion less than 1 cm or classified as too small to characterize, or any incidental cystic renal lesion characterized as simple-appearing, is likely benign. No follow-up imaging is recommended for these lesions per consensus recommendations based on imaging criteria. 2. The presence of pulmonary emphysema on CT is an independent risk factor for lung cancer. In the absence of a history or active diagnosis of lung cancer, it is recommended that this patient with emphysema be evaluated for enrollment in a low dose CT lung cancer screening program.
--- NOTE | 2023-06-04 21:38 | ED_ITS ---
Discharge Plan Disposition Chief Complaint: Chest Pain Prescriptions Prescriptions: No Action lisinopril-hydrochlorothiazide 20-25 mg tablet 1 tab PO DAILY Qty: 30 2RF hydroxyzine pamoate 25 mg capsule 25 mg PO BID PRN (Reason: Anxiety) Qty: 60 3RF escitalopram oxalate 10 mg tablet 10 mg PO DAILY Qty: 30 3RF bisoprolol fumarate 5 mg tablet 5 mg PO BID Qty: 90 3RF hydrocodone-acetaminophen 5-325 mg tablet 1 tab PO TID PRN (Reason: pain) Qty: 90 0RF Anoro Ellipta 62.5-25 mcg/actuation blister with device 1 inh INHALATION DAILY Qty: 60 2RF pantoprazole 40 mg tablet,delayed release (DR/EC) 40 mg PO DAILY Qty: 90 0RF cyclobenzaprine 10 mg tablet 10 mg PO TID Qty: 90 0RF amlodipine [Norvasc] 5 mg tablet 5 mg PO QHS Qty: 90 5RF Hold Instructions: Doctor's Order albuterol sulfate 2.5 mg /3 mL (0.083 %) solution for nebulization 2.5 mg inhalation Q4HP PRN (Reason: Shortness Of Breath Or Wheezing) Qty: 90 0RF albuterol sulfate [ProAir HFA] 90 mcg/actuation HFA aerosol inhaler 1 inh INHALATION Q4-6H PRN (Reason: shortness of breath or wheezing) Qty: 8.5 5RF aspirin 81 mg tablet,delayed release (DR/EC) 81 mg PO DAILY Qty: 90 1RF Patient Comments: TAKE 1 TABLET 1 TIME EACH DAY Clinical Impressions Clinical Impression: Chest pain, Back pain, Nausea & vomiting Discharge ED Provider: Paramjit Lewis HPI General Chief Complaint: Chest Pain Stated Complaint: SOA Time Seen by Provider: 06/04/23 21:26 History of Present Illness HPI narrative: Patient is a 53-year-old male here with multiple complaints but primarily chest pain today brought in by EMS. He is accompanied by his who is at the bedside and they state they both got sick yesterday at the same time she with nausea vomiting diarrhea and he primarily with nausea and vomiting no diarrhea. However he states he has chronic back pain and chronic chest pain. Has never had coronary artery disease or heart catheter or stents that he is aware of but states he has chronic chest pain which was worse at the time that he started having the GI symptoms. He had around 10 episodes of nonbloody nonbilious emesis. Abdominal cramping intermittently but no significant abdominal pain at the moment. No history of aortic pathology that he is aware of. States that his pain became so severe that this is what prompted him to come to the emergency department specifically his chest pain. It is substernal nonradiating not associated with diaphoresis does have significant back pain but states that it is an isolated location of pain and not sure whether not it is radiating. No fevers or chills etc. Of note patient does have a history of a spontaneous pneumothorax had multiple chest tubes in the past and had a lobectomy to treat this and a thoracotomy has not had symptoms of that since that surgery. Related Data Previous Rx's Medication Instructions Recorded aspirin 81 mg tablet,delayed 81 mg PO DAILY heart health #90 01/24/23 release tabs albuterol sulfate 2.5 mg/3 mL 2.5 mg (3 mL) inhalation Q4HP PRN 02/03/23 (0.083 %) solution for nebulization Shortness Of Breath Or Wheezing #90 mL albuterol sulfate 90 mcg/actuation 1 inh inhalation Q4-6H PRN 02/03/23 aerosol inhaler (ProAir HFA) shortness of breath or wheezing #8.5 grams amlodipine 5 mg tablet (Norvasc) 5 mg PO QHS #90 tabs 02/03/23 cyclobenzaprine 10 mg tablet 10 mg PO TID Back Pain #90 tabs 02/03/23 pantoprazole 40 mg tablet,delayed 40 mg PO DAILY Acid Reflux #90 tabs 02/03/23 release umeclidinium 62.5 mcg-vilanterol 1 inh inhalation DAILY Copd #60 ea 02/03/23 25 mcg/actuation powdr for inhalation (Anoro Ellipta) escitalopram oxalate 10 mg tablet 10 mg PO DAILY mood #30 tabs 03/03/23 hydroxyzine pamoate 25 mg capsule 25 mg PO BID PRN Anxiety #60 caps 03/03/23 lisinopril 20 1 tab PO DAILY #30 tabs 03/03/23 mg-hydrochlorothiazide 25 mg tablet bisoprolol fumarate 5 mg tablet 5 mg PO BID #90 tabs 03/06/23 hydrocodone 5 mg-acetaminophen 325 1 tab PO TID PRN pain #90 tabs 05/30/23 mg tablet Allergies Allergy/AdvReac Type Severity Reaction Status Date / Time Penicillins Allergy Severe Rash Verified 05/30/23 11:09 tramadol Allergy Verified 05/30/23 11:09 meloxicam [From Mobic] AdvReac Severe gastritis Verified 05/30/23 11:09 [facility] Disclaimer: The information contained in this section may have been updated after the patient was seen, as this information can be updated by other users. Medical History Spontaneous pneumothorax Abnormal ECG Cancer screening History of pneumothorax Smoking greater than 20 pack years Pulmonary emphysema Dyspnea on exertion Shortness of breath Surgical History H/O pneumonectomy Previous back surgery History of hernia repair Family History Other Asthma COPD (chronic obstructive pulmonary disease) Cancer Social History Smoking Status: Current every day smoker tobacco type: cigarettes packs per day: 1 second hand exposure: Yes alcohol intake: former substance use type: former substance user current occupational status: disabled Travel in the last 8 weeks: None household members: family housing: house current occupational exposures/hazards: No ROS Obtained: Yes All systems reviewed & no additional complaints except as documented Physical Exam General General appearance: alert and in no apparent distress Respiratory Respiratory exam: Present normal lung sounds bilaterally; Absent respiratory distress Cardiovascular Cardiovascular exam: Present normal rhythm and tachycardia Abdominal Exam Abdominal exam: Present soft; Absent distention or tenderness Neurological Exam Neurological exam: Present alert and oriented X3 HEART Score HEART Score HEART Score assessment performed?: Yes History (anamnesis): Slightly suspicious ECG: Non-specific disturbance Age: 45-65 years Risk factors: 1-2 risk factors Troponin: </= normal limit HEART Score: 3 Critical Care Critical Care Time Critical Care Time: Yes Attestation: On 06/04/23, the high probability of a clinically significant, sudden or life threatening deterioration of the following system(s) required my full and direct attention, intervention and personal management. The time I documented below is in addition to time spent performing reported procedures but includes the following listed in this critical care notation. Total Time Total Critical Care Time: 35 Medical Decision Making Fredrick Inquiry Pt receiving controlled substance: No Vital Signs Vital Signs: 06/04/23 21:25 06/04/23 22:17 Temperature 97.3 F L Temperature Source Oral Pulse Rate 108 H Pulse Rate [Left] 116 H Respiratory Rate 18 22 Blood Pressure 154/97 H Blood Pressure [Right Arm] 130/86 Blood Pressure Mean [Right Arm] 100 Blood Pressure Source [Right Arm] Automatic Cuff Blood Pressure Position [Right Arm] Supine 02 Sat by Pulse Oximetry 95 96 Oxygen Delivery Method Room Air Lab Data Lab results reviewed: Yes I reviewed the patient's lab results. Labs: Lab Results 06/04/23 21:41: WBC 11.1 H, RBC 4.71, Hgb 16.0, Hct 48.4, MCV 102.8 H, MCH 33.9 H, MCHC 33.0, RDW 14.6, Plt Count 312, MPV 8.0, Neut % (Auto) 87.8 H, Lymph % (Auto) 7.5 L, [place] % (Auto) 4.3, Eos % (Auto) 0.1, Baso % (Auto) 0.4, Neut # (Auto) 9.7 H, Lymph # (Auto) 0.8, [place] # (Auto) 0.5, Eos # (Auto) 0.0, Baso # (Auto) 0.0, Sodium 136, Potassium 5.6 H, Chloride 100, Carbon Dioxide 23, Anion Gap 18.6 H, BUN 39 H, Creatinine 1.20, Estimated Creat Clear 96, Estimated GFR 64, Est GFR ( Amer) 77, Glucose 136 H, Calcium 10.3 H, Total Bilirubin 0.6, AST 36, ALT 37, Alkaline Phosphatase 165 H, Troponin I < 0.01, Total Protein 8.8 H, Albumin 4.9, Globulin 3.9 H, Albumin/Globulin Ratio 1.3, Lipase 1861 H 06/04/23 21:50: SARS-CoV-2 (PCR) Not detected, Influenza A Untype (PCR) Not detected, Influenza Type B (PCR) Not detected 06/04/23 21:41 06/04/23 21:41 Response Orders (Tests/Meds): ED MEDICATIONS Generic Name Dose Route Start Last Admin Trade Name Freq PRN Reason Stop Dose Admin Lactated Ringer's 1,000 mls @ 999 mls/hr 06/04/23 21:45 06/04/23 21:46 Lactated Ringer's 1000 Ml Bag IV 06/04/23 22:45 999 mls/hr .Q1H1M EUGENE Administration Sodium Chloride 10 ml 06/04/23 22:19 06/04/23 22:20 Sodium Chloride 0.9% 10ml Syr (Rad Only) IV 07/04/23 22:18 10 ml NEEDED PRN Administration Maintain IV Site Discontinued Medications Generic Name Dose Route Start Last Admin Trade Name Nemo PRN Reason Stop Dose Admin Iopamidol 100 ml 06/04/23 22:19 06/04/23 22:20 Iopamidol-370 (76%);100ml Bottle IV 06/04/23 22:20 100 ml ONCE ONE Administration Morphine Sulfate 4 mg 06/04/23 21:36 06/04/23 21:46 Morphine 4mg/Ml Syringe IV 06/04/23 21:37 4 mg ONCE ONE Administration Ondansetron HCl 4 mg 06/04/23 21:36 06/04/23 21:46 Ondansetron 4mg/2ml Vial IV 06/04/23 21:37 4 mg ONCE ONE Administration Sodium Chloride 50 ml 06/04/23 22:19 06/04/23 22:19 0.9 % Sodium Chloride 50 Ml Vial IV 06/04/23 22:20 50 ml ONCE ONE Administration ORDERS Category Date Time Status CT angio chest - dissection Stat Cat Scan 06/04/23 21:36 Taken CBC w/Auto Diff [Complete Blood Count Auto Diff] Stat Lab 06/04/23 21:41 Results CMP [Comprehensive Metabolic Panel] Stat Lab 06/04/23 21:41 Completed Lipase Stat Lab 06/04/23 21:41 Completed Rapid PCR Covid and Flu A/B Stat Lab 06/04/23 21:50 Completed Trop I [Troponin I] Stat Lab 06/04/23 21:41 Completed Troponin I Q3H Lab 06/05/23 00:45 Ordered Troponin I Q3H Lab 06/05/23 03:45 Ordered ECG Data Tracing #1: Attestation: I reviewed this ECG and interpreted as documented below: ECG Narrative: Well-known 9 sinus tachycardia no acute ischemic changes there is normal axis no significant duction abnormalities MDM Narrative Medical Decision Narrative: Patient is a 53-year-old male poor historian here with multiple complaints including what seems to be primarily infectious complaints as he and his had some more GI related illnesses prior to his emergency department visit today. She had nausea vomit diarrhea he had nausea vomit this is most likely viral gastritis. However he also states he has severe chest pain and worsening back pain difficult for him to understand or ascertain whether or not this is radiating from the chest through to his back and he states that the that pain is what was so severe that prompted his emergency department visit today. Differential includes acute coronary syndrome musculoskeletal pain associated with retching, Boerhaave's, aortic dissection, pneumothorax etc. Will get a CT angio specifically with contrast bolus targeted to the aorta given the chest pain radiating through to the back. This will evaluate for other pathology as well. IV fluids morphine Zofran have been administered will reassess after his initial workup is complete. EKG was unremarkable. Unlikely to be acute coronary syndrome with pain has been ongoing for several days no need for serial troponins. The scan performed which I first interpreted shows no aortic dissection no pulmonary embolism or other acute cardiopulmonary emergency. Radiology read pending. Labs returned which showed significantly a lipase elevated at 1800. I spoke further with the patient and he had drank 1-1/2 sleeves of fireball which is the equivalent of about 16 shots of fireball within the last 24 hours. Does not drink regularly but when he does drink states that he drinks and binge drinks. I presume that this is the cause of his acute pancreatitis. His scan did include the upper region of his abdomen I do not see any necrotizing abnormalities abscesses cholecystitis or cholelithiasis. I spoke with Chivo with hospital medicine who agreed to admit the patient for further evaluation and treatment.
--- NOTE | 2023-06-04 21:40 | ECG_ITS ---
APPROVED REPORT Exam: Resting ECG HR:109 bpm ECG Measurements Heart Rate 109 AXES OR 178 P 48 QRSd 86 QRS 34 QT 309 T 42 QTc 373 Conclusion SINUS TACHYCARDIA ABNORMAL RHYTHM ECG UNCONFIRMED REPORT Electronically signed by : Baldemar Lewis, 06/05/2023 17:37:40
[2023-06-04] MEDS: LACTATED RINGERS 1000ML 1,000 ML 999 ML IV (21:46)
[2023-06-04] MEDS: MORPHINE 4MG/ML SYRINGE 4 MG IV ×2 (21:46→23:19)
[2023-06-04] MEDS: ONDANSETRON 4MG/2ML VIAL 4 MG IV (21:46)
[2023-06-04 21:49] LABS: Basophils % 0.4 % (0.1-2.0); Eosinophils % 0.1 % (0.1-12.0); Hematocrit 48.4 % (42.0-52.0); Lymphocytes # 0.8 K/mm3 (0.7-4.5); Lymphocytes % 7.5 % (10-50); Mean Corpuscular Hemoglobin 33.9 pg (27.0-31.2); Mean Corpuscular Volume 102.8 fl (80-94); Monocytes # 0.5 K/mm3 (0.1-1.0); Monocytes % 4.3 % (1.7-9.3); Neutrophils # 9.7 K/mm3 (1.8-7.8); Neutrophils % 87.8 % (37.0-80.0); Platelet Count 312 K/mm3 (142-424); Red Blood Count 4.71 M/mm3 (4.60-6.20); Red Cell Distribution Width 14.6 % (11.5-17.5); White Blood Count 11.1 K/mm3 (4.8-10.8)
[2023-06-04 21:51] LABS: MANUAL DIFFERENTIAL MANUAL DIFFERENTIAL (MANUAL DIFF)
[2023-06-04 21:53] LABS: Coronavirus 19, PCR Not Detected (NotDetected); Influenza A, PCR Not Detected (NotDetected); Influenza B, PCR Not Detected (NotDetected)
[2023-06-04 21:54] LABS: Chloride 100 mmol/L (98-107); Potassium 5.6 mmoL/L (3.5-5.1); Sodium 136 mmol/L (136-145)
[2023-06-04 21:56] LABS: Blood Urea Nitrogen 39 mg/dl (9-20); Creatinine Clearance Estimated 96 mL/min (50-200); Estimated Glomerular Filt Rate 64 ml/min (>60); GFR (African American) 77 ML/MIN (>60)
[2023-06-04 21:57] LABS: Alanine Aminotransferase 37 U/L (12-78); Albumin Level 4.9 g/dl (3.5-5.0); Albumin/Globulin Ratio 1.3 (1.1-1.8); Alkaline Phosphatase 165 U/L (38-126); Anion Gap 18.6 mEq/L (5-15); Aspartate Amino Transferase 36 U/L (17-59); Bilirubin,Total 0.6 mg/dl (0.2-1.3); Calcium 10.3 mg/dl (8.4-10.2); Carbon Dioxide 23 mmol/L (22.0-30.0); Globulin 3.9 g/dL (1.3-3.2); Glucose 136 mg/dl (74-100); Total Protein,Serum 8.8 g/dl (6.3-8.2)
[2023-06-04 22:11] LABS: Troponin I < 0.01 ng/ml (0.00-0.034)
[2023-06-04 22:12] LABS: Lipase 1861 U/L (23-300)
--- NOTE | 2023-06-04 22:12 | PC.NURSE ---
Dr. Lewis notified of critical lipase 1860.
[2023-06-04 22:17] VITALS: BP 154/97; PULSE 108; RESP 22; O2SAT 96
[2023-06-04] MEDS: 0.9 % SODIUM CHLORIDE 50 ML VIAL IV (22:19)
[2023-06-04] MEDS: IOPAMIDOL-370 (76%);100ML BOTTLE 100 ML IV (22:20)
[2023-06-04] MEDS: SODIUM CHLORIDE 0.9% 10ML SYR (RAD ONLY) 10 ML IV (22:20)
[2023-06-04 22:30] VITALS: BP 153/95; PULSE 103; RESP 20; O2SAT 96
[2023-06-04 22:52] VITALS: BP 153/95; PULSE 107; RESP 16; TEMP 36.3; O2SAT 96
[2023-06-04 23:04] LABS: Lymphocytes % 9 % (10-50); Monocytes % 2 % (2-9); Neutrophils % 88 % (42-76); Platelet Estimate Normal; RBC Morphology Normal; Total Cells Counted 100
[2023-06-04] MEDS: LACTATED RINGERS 1000ML 1,000 ML 150 ML IV (23:20)
[2023-06-04 23:28] VITALS: BP 162/110; PULSE 104; RESP 19; TEMP 36.3; O2SAT 98; BMI 31.3
--- NOTE | 2023-06-04 23:57 | PC.NURSE ---
Completed med rec based on external to my best ability, pt does not know for sure what he takes, no list on hand
[2023-06-05] VITALS (9 sets, daily range): BP systolic 104–148; BP diastolic 62–105; PULSE 100–132; RESP 16–24; TEMP 35.5–37; O2SAT 90–96; BMI 31.3
--- NOTE | 2023-06-05 00:07 | EXP.HP ---
History of Present Illness *Admission Date: 06/04/23 *Reason for visit:: acute pancreatitis *History of present illness: 53 year old male presented to the [facility] ED for c/o chest pain that started this morning. He reported in the ED that he had 10 episodes of nonbloody nonbilious emesis. PMHX of htn, hld, chronic chest pain and back pain, anxiety, copd, nd tobacco abuse. His ED workup revealed a leukocytosis of 11.1, hyperkalemia of 5.6, BUN 39, and lipase of 1861. His first troponin was negative and his EKG reveal sinus tachycardia without ST elevation or depression. Chest CTA reveals peripancreatic inflammation. No dissection, embolisms, or aneurysm noted. The pt states he was hanging out with his friends last night and consumed 16 shots of fire ball. He denies drinking daily. The ED physician consulted the hospitalist team for further medical management. I spoke with the ED physician and admitted the pt to the medical floor. He will receive PRN pain and nausea medications as well as IV hydration. [facility] Disclaimer: The information contained in this section may have been updated after the patient was seen, as this information can be updated by other users. Medical History (Updated 06/05/23 @ 00:28 by HARSH Dewitt) COPD (chronic obstructive pulmonary disease) Spontaneous pneumothorax Abnormal ECG Cancer screening History of pneumothorax Smoking greater than 20 pack years Pulmonary emphysema Dyspnea on exertion Shortness of breath Surgical History H/O pneumonectomy Previous back surgery History of hernia repair Family History Other Asthma COPD (chronic obstructive pulmonary disease) Cancer Social History (Updated 06/04/23 @ 23:41 by Marion Kaur RN) Smoking Status: Current every day smoker tobacco type: cigarettes packs per day: 1 second hand exposure: Yes alcohol intake: former substance use type: former substance user current occupational status: disabled Travel in the last 8 weeks: None household members: family housing: house current occupational exposures/hazards: No Review of Systems Review of Systems Review of systems:: pertinent systems reviewed and negative unless documented below Meds Home Medications and Allergies Home Medications Medication Instructions Recorded Confirmed Type albuterol sulfate 2.5 mg/3 mL 2.5 mg (3 mL) inhalation Q4HP PRN 02/03/23 06/04/23 Rx (0.083 %) solution for nebulization Shortness Of Breath Or Wheezing #90 mL albuterol sulfate 90 mcg/actuation 1 inh inhalation Q4-6H PRN 02/03/23 06/05/23 Rx aerosol inhaler (ProAir HFA) shortness of breath or wheezing #8.5 grams hydroxyzine pamoate 25 mg capsule 25 mg PO BID PRN Anxiety #60 caps 03/03/23 06/04/23 Rx lisinopril 20 1 tab PO DAILY #30 tabs 03/03/23 06/04/23 Rx mg-hydrochlorothiazide 25 mg tablet bisoprolol fumarate 5 mg tablet 5 mg PO BID #90 tabs 03/06/23 06/05/23 Rx hydrocodone 5 mg-acetaminophen 325 1 tab PO TID PRN pain #90 tabs 05/30/23 06/04/23 Rx mg tablet amlodipine 5 mg tablet (Norvasc) 5 mg PO HS 06/05/23 06/05/23 History aspirin 81 mg tablet,delayed 81 mg PO DAILY 06/05/23 06/04/23 History release cyclobenzaprine 10 mg tablet 10 mg PO TID 06/05/23 06/04/23 History escitalopram oxalate 10 mg tablet 10 mg PO DAILY 06/05/23 06/04/23 History pantoprazole 40 mg tablet,delayed 40 mg PO DAILY 06/05/23 06/04/23 History release umeclidinium 62.5 mcg-vilanterol 1 inh inhalation DAILY 06/05/23 06/05/23 History 25 mcg/actuation powdr for inhalation (Anoro Ellipta) New Prescriptions to Start Prescriptions: Allergies Allergy/AdvReac Type Severity Reaction Status Date / Time Penicillins Allergy Severe Rash Verified 05/30/23 11:09 tramadol Allergy Verified 05/30/23 11:09 meloxicam [From Mobic] AdvReac Severe gastritis Verified 05/30/23 11:09 Exam Data for Last 24 hours Vital signs and Labs for Last 24 Hours: Temp Pulse Resp BP Pulse Ox O2 Del Method 97.4 F L 104 H 19 162/110 H 98 Room Air 06/04/23 23:28 06/04/23 23:28 06/04/23 23:28 06/04/23 23:28 06/04/23 23:28 06/04/23 23:28 Laboratory Results - last 24 hr 06/04/23 21:41: WBC 11.1 H, RBC 4.71, Hgb 16.0, Hct 48.4, MCV 102.8 H, MCH 33.9 H, MCHC 33.0, RDW 14.6, Plt Count 312, MPV 8.0, Neut % (Auto) 87.8 H, Lymph % (Auto) 7.5 L, [place] % (Auto) 4.3, Eos % (Auto) 0.1, Baso % (Auto) 0.4, Neut # (Auto) 9.7 H, Lymph # (Auto) 0.8, [place] # (Auto) 0.5, Eos # (Auto) 0.0, Baso # (Auto) 0.0, Total Counted 100, Neutrophils % (Manual) 88 H, Lymphocytes % (Manual) 9 L, Monocytes % (Manual) 2, Basophils % (Manual) 1.0, Platelet Estimate Normal, RBC Morphology Normal, Sodium 136, Potassium 5.6 H, Chloride 100, Carbon Dioxide 23, Anion Gap 18.6 H, BUN 39 H, Creatinine 1.20, Estimated Creat Clear 96, Estimated GFR 64, Est GFR ( Amer) 77, Glucose 136 H, Calcium 10.3 H, Total Bilirubin 0.6, AST 36, ALT 37, Alkaline Phosphatase 165 H, Troponin I < 0.01, Total Protein 8.8 H, Albumin 4.9, Globulin 3.9 H, Albumin/Globulin Ratio 1.3, Lipase 1861 H 06/04/23 21:50: SARS-CoV-2 (PCR) Not detected, Influenza A Untype (PCR) Not detected, Influenza Type B (PCR) Not detected I & O for Last 24 hours: Intake & Output 06/02/23 06/03/23 06/04/23 06/05/23 23:59 23:59 23:59 23:59 Output Total 500 / 500 Balance -500 / -500 Weight 95.935 kg Constitutional Constitutional: no acute distress *Routine HEENT Exam Head: Present normocephalic and atraumatic Eye: Present EOMI, PERRL and normal accommodation ENT: Present mucous membranes moist *Routine Neck Exam Neck: Present supple and full ROM *Routine Respiratory Exam Respiratory: Present wheezes, able to speak in complete sentences and symmetric chest movement *Routine Cardiovascular Exam Cardiovascular: Present RRR *Routine Abdominal Exam Abdominal: Present soft, normoactive bowel sounds, tenderness and distended *Routine Rectal Exam Rectal:: deferred *Routine Genitalia Exam Genitalia:: deferred *Routine Extremities Exam Extremities: Present full ROM and pulses intact; Absent edema *Routine Skin Exam Skin: Present intact *Routine Neurological Exam Neurological: Present alert and oriented X3 Assessment and Plan *Assessment and plan (1) Pancreatitis: Status: Acute Category: Medical Code(s): K85.90 - Acute pancreatitis without necrosis or infection, unspecified (2) Chronic prescription opiate use: Status: Acute Category: Medical Code(s): Z79.891 - shelter (current) use of opiate analgesic (3) COPD (chronic obstructive pulmonary disease): Status: Acute Category: Medical Code(s): J44.9 - Chronic obstructive pulmonary disease, unspecified (4) Back pain: Status: Acute Category: Medical Code(s): M54.9 - Dorsalgia, unspecified (5) Chronic stable angina: Status: Acute Category: Medical Code(s): I20.89 - Other forms of angina pectoris (6) Hypertension: Status: Chronic Qualifiers: Hypertension type: primary hypertension Qualified Code(s): I10 - Essential (primary) hypertension Category: Medical Code(s): I10 - Essential (primary) hypertension (7) HLD (hyperlipidemia): Status: Acute Category: Medical Code(s): E78.5 - Hyperlipidemia, unspecified (8) Tobacco use disorder: Status: Acute Category: Medical Code(s): F17.200 - Nicotine dependence, unspecified, uncomplicated Plan 53 year old male presented to the [facility] ED for c/o chest pain that started this morning. He reported in the ED that he had 10 episodes of nonbloody nonbilious emesis. The pt states he was hanging out with his friends last night and consumed 16 shots of fire ball. He denies drinking daily. The ED physician consulted the hospitalist team for further medical management. I spoke with the ED physician and admitted the pt to the medical floor. He will receive PRN pain and nausea medications as well as IV hydration. I will trend his lipase and electrolytes. Plan as to follow: PANCREATITIS -consumed 16 shots of fire ball last night -c/o chest pain and epigastric tenderness -leukocytosis of 11.1, hyperkalemia of 5.6, BUN 39, and lipase of 1861 -Chest CTA reviewed and reveals peripancreatic inflammation -continue to trend cbc, bmp, and lipase -IV zofran and Dilaudid as needed for pain and nausea -NPO w/ ice chips -LR @ 150 mL/hr -> received bolus in ED -Denies alcohol abuse CHRONIC PRESCRIPTION OPIATE USE CHRONIC BACK AND CHEST PAIN COPD HTN HLD -continue norvasc 5mg, aspirin 81mg, lexapro 10mg, flexeril 10mg, norco 5-325mg, lisinopril 20mg, and protonix 40mg -duoneb q 6hr prn -first troponin was negative and his EKG reveal sinus tachycardia without ST elevation or depression -property assessment monitor for chronic chest pain TOBACCO ABUSE -nicotine patch PRN FULL CODE NPO DVT: HEPARIN SQ Attending attestation Patient was seen and evaluated at the bedside myself, agree with CAPRICE note. Acute pancreatitis - advance diet as tolerated, started on clear liquuid, pain control, DC 1-2 days pending improvement
[2023-06-05] MEDS: AMLODIPINE 5MG TABLET 5 MG PO ×2 (00:51→20:45)
[2023-06-05 00:52] LABS: Troponin I < 0.01 ng/ml (0.00-0.034)
[2023-06-05] MEDS: HYDROMORPHONE 2MG/ML SYRINGE 1 MG IV ×6 (01:21→22:06)
[2023-06-05 04:15] LABS: Troponin I < 0.01 ng/ml (0.00-0.034)
[2023-06-05] MEDS: HYDROCODONE/APAP 5/325 MG TABLET 1 TAB PO ×4 (04:34→23:04)
--- NOTE | 2023-06-05 04:54 | PC.NURSE ---
Pt is alert and oriented. Pt has complained of pain, treated per mar. Pt has not complained of nausea. remained at bedside. Pt stated he has fallen at home, his helps him, pt uses urinal at bedside. Call light in reach.
[2023-06-05 06:23] LABS: Basophils % 0.3 % (0.1-2.0); Eosinophils % 0.2 % (0.1-12.0); Lymphocytes # 0.6 K/mm3 (0.7-4.5)
[2023-06-05] MEDS: LACTATED RINGERS 1000ML 1,000 ML 150 ML IV ×2 (06:23→16:55)
[2023-06-05 06:26] LABS: Hematocrit 42.5 % (42.0-52.0); Lymphocytes % 4.7 % (10-50); Mean Corpuscular HGB Conc 32.8 g/dL (31.8-35.4); Mean Corpuscular Hemoglobin 33.7 pg (27.0-31.2); Mean Corpuscular Volume 102.7 fl (80-94); Mean Platelet Volume 9.2 fl (7.4-10.4); Monocytes # 0.8 K/mm3 (0.1-1.0); Neutrophils # 11.7 K/mm3 (1.8-7.8); Neutrophils % 88.8 % (37.0-80.0); Red Blood Count 4.13 M/mm3 (4.60-6.20); Red Cell Distribution Width 14.5 % (11.5-17.5); White Blood Count 13.2 K/mm3 (4.8-10.8)
[2023-06-05 06:27] LABS: Chloride 104 mmol/L (98-107); Potassium 5.3 mmoL/L (3.5-5.1); Sodium 132 mmol/L (136-145)
[2023-06-05 06:29] LABS: Blood Urea Nitrogen 26 mg/dl (9-20); Creatinine Clearance Estimated 132 mL/min (50-200); Estimated Glomerular Filt Rate 89 ml/min (>60); GFR (African American) 108 ML/MIN (>60)
[2023-06-05 06:30] LABS: Anion Gap 15.3 mEq/L (5-15); Calcium 9.1 mg/dl (8.4-10.2); Carbon Dioxide 18 mmol/L (22.0-30.0); Glucose 130 mg/dl (74-100)
[2023-06-05 06:40] LABS: MANUAL DIFFERENTIAL MANUAL DIFFERENTIAL (MANUAL DIFF)
[2023-06-05 06:52] LABS: Lipase 697 U/L (23-300)
--- NOTE | 2023-06-05 07:14 | HMH.PHAINT1 ---
Pharmacy Intervention Comments: HOME MEDICATION LIST VERIFIED VIA OUTSIDE PHARMACY
[2023-06-05 07:46] LABS: Lymphocytes % 3 % (10-50); Monocytes % 4 % (2-9); Neutrophils % 93 % (42-76); Total Cells Counted 100
[2023-06-05 07:47] LABS: Macrocytosis 1+; Platelet Estimate Normal
[2023-06-05 08:15] LABS: Hemoglobin 13.9 g/dL (14.1-18.0)
[2023-06-05 08:17] LABS: Platelet Count 222 K/mm3 (142-424)
[2023-06-05] MEDS: ASPIRIN EC 81MG TABLET 81 MG PO (08:55)
[2023-06-05] MEDS: hydroCHLOROthiazide 25MG TABLET 25 MG PO (08:55)
[2023-06-05] MEDS: PANTOPRAZOLE 40MG TABLET 40 MG PO (08:55)
[2023-06-05] MEDS: CITALOPRAM 20MG TABLET 20 MG PO (08:55)
[2023-06-05] MEDS: LISINOPRIL 20MG TABLET 20 MG PO (08:55)
[2023-06-05] MEDS: HEPARIN SODIUM 5,000 UNIT/ML VIAL 5000 UNIT SQ ×2 (08:56→20:45)
--- NOTE | 2023-06-05 18:48 | PC.NURSE ---
pt alert and oriented x4. Pt is complaining of back and abdominal pain, treated per MAR. Pt has tolerated clear liquids today. Bed is in lowest position, call light in reach.
[2023-06-05] MEDS: hydrOXYzine pamoate 25MG CAPSULE 25 MG PO (23:04)
[2023-06-05] MEDS: BISOPROLOL 5MG TABLET 5 MG PO (23:56)
[2023-06-06] VITALS: PULSE 121
[2023-06-06] MEDS: HYDROMORPHONE 2MG/ML SYRINGE 1 MG IV ×2 (01:59→06:10)
[2023-06-06] MEDS: LACTATED RINGERS 1000ML 1,000 ML 150 ML IV (01:59)
[2023-06-06 04:00] VITALS: BP 108/68; PULSE 110; PULSE 98; RESP 16; TEMP 37; O2SAT 91; BMI 32.3
[2023-06-06 06:31] LABS: Chloride 99 mmol/L (98-107); Sodium 129 mmol/L (136-145)
[2023-06-06 06:32] LABS: Potassium 4.6 mmoL/L (3.5-5.1)
[2023-06-06 06:34] LABS: Alanine Aminotransferase 22 U/L (12-78); Albumin Level 3.8 g/dl (3.5-5.0); Albumin/Globulin Ratio 1.3 (1.1-1.8); Alkaline Phosphatase 112 U/L (38-126); Anion Gap 5.6 mEq/L (5-15); Aspartate Amino Transferase 34 U/L (17-59); Bilirubin,Total 0.9 mg/dl (0.2-1.3); Blood Urea Nitrogen 16 mg/dl (9-20); Calcium 9.2 mg/dl (8.4-10.2); Carbon Dioxide 29 mmol/L (22.0-30.0); Creatinine Clearance Estimated 122 mL/min (50-200); Estimated Glomerular Filt Rate 79 ml/min (>60); GFR (African American) 95 ML/MIN (>60); Globulin 2.9 g/dL (1.3-3.2); Glucose 111 mg/dl (74-100); Magnesium 2.1 mg/dl (1.6-2.3); Total Protein,Serum 6.7 g/dl (6.3-8.2)
[2023-06-06 06:40] LABS: Lymphocytes # 1.3 K/mm3 (0.7-4.5); Monocytes # 0.5 K/mm3 (0.1-1.0); Red Cell Distribution Width 14.5 % (11.5-17.5)
[2023-06-06 06:45] LABS: Basophils % 0.3 % (0.1-2.0); Eosinophils % 0.4 % (0.1-12.0); Lymphocytes % 12.3 % (10-50); Mean Corpuscular HGB Conc 33.1 g/dL (31.8-35.4); Mean Corpuscular Hemoglobin 33.8 pg (27.0-31.2); Mean Corpuscular Volume 102.3 fl (80-94); Mean Platelet Volume 8.6 fl (7.4-10.4); Neutrophils # 8.4 K/mm3 (1.8-7.8); Platelet Count 218 K/mm3 (142-424); Red Blood Count 3.71 M/mm3 (4.60-6.20); White Blood Count 10.3 K/mm3 (4.8-10.8)
[2023-06-06 06:49] LABS: Hemoglobin 12.6 g/dL (14.1-18.0)
[2023-06-06 07:34] LABS: Phosphorous 2.4 mg/dl (2.5-4.5)
[2023-06-06 07:49] VITALS: BP 113/74; PULSE 102; RESP 22; TEMP 36.9; O2SAT 92
[2023-06-06 08:00] VITALS: PULSE 100; O2SAT 92
[2023-06-06] MEDS: HYDROCODONE/APAP 5/325 MG TABLET 1 TAB PO (08:29)
[2023-06-06] MEDS: PANTOPRAZOLE 40MG TABLET 40 MG PO (08:29)
[2023-06-06] MEDS: LISINOPRIL 20MG TABLET 20 MG PO (08:29)
[2023-06-06] MEDS: hydroCHLOROthiazide 25MG TABLET 25 MG PO (08:29)
[2023-06-06] MEDS: CITALOPRAM 20MG TABLET 20 MG PO (08:29)
[2023-06-06] MEDS: ASPIRIN EC 81MG TABLET 81 MG PO (08:29)
[2023-06-06] MEDS: FOLIC ACID 1MG TABLET 1 MG PO (08:30)
[2023-06-06] MEDS: BISOPROLOL 5MG TABLET 5 MG PO (08:30)
[2023-06-06] MEDS: HEPARIN SODIUM 5,000 UNIT/ML VIAL 5000 UNIT SQ (08:32)
[2023-06-06] MEDS: MVI, ADULT NO.1 WITH VIT K 10 ML, THIAMINE HCL 100 MG, MAGNESIUM SULFATE 2 GM in LACTAT... 125 ML IV (10:49)
--- NOTE | 2023-06-06 11:25 | EXP.DC.SUM ---
General Admission date:: 06/04/23 Discharge date: 06/06/23 HPI HPI HPI: 53 year old male presented to the [facility] ED for c/o chest pain that started this morning. He reported in the ED that he had 10 episodes of nonbloody nonbilious emesis. PMHX of htn, hld, chronic chest pain and back pain, anxiety, copd, nd tobacco abuse. His ED workup revealed a leukocytosis of 11.1, hyperkalemia of 5.6, BUN 39, and lipase of 1861. His first troponin was negative and his EKG reveal sinus tachycardia without ST elevation or depression. Chest CTA reveals peripancreatic inflammation. No dissection, embolisms, or aneurysm noted. The pt states he was hanging out with his friends last night and consumed 16 shots of fire ball. He denies drinking daily. The ED physician consulted the hospitalist team for further medical management. I spoke with the ED physician and admitted the pt to the medical floor. He will receive PRN pain and nausea medications as well as IV hydration. Hospital Course Hospital Course Hospital Course: 53 year old male presented to the [facility] ED for c/o chest pain that started this morning. He reported in the ED that he had 10 episodes of nonbloody nonbilious emesis. The pt states he was hanging out with his friends last night and consumed 16 shots of fire ball. He denies drinking daily. The ED physician consulted the hospitalist team for further medical management. I spoke with the ED physician and admitted the pt to the medical floor. Bowel rest initiated. Monitored on CIWA protocol. No significant drawl symptoms. Able to tolerate advancement in diet. Given improvement in pain and toleration of p.o. intake, meeting criteria for discharge home. Problems addressed as follows: PANCREATITIS -Patient presented with abdominal pain. Lipase elevated at 1861. Improved on serial monitoring. Reports that he had consumed 16 shots of fire ball night before admission. Having epigastric and chest discomfort. Showed gradual improvement with pain control. Transition back to home pain regimen. Able to advance diet. Given his tolerance of p.o. intake, improvement in pain, stable to discharge home. No emesis or significant pain for 24 hours prior to discharge home. CHRONIC PRESCRIPTION OPIATE USE CHRONIC BACK AND CHEST PAIN COPD HTN HLD -continue norvasc 5mg, aspirin 81mg, lexapro 10mg, flexeril 10mg, norco 5-325mg, lisinopril 20mg, and protonix 40mg -duoneb q 6hr prn -first troponin was negative and his EKG reveal sinus tachycardia without ST elevation or depression -No clinically significant pain during admission. TOBACCO ABUSE: Nicotine patch during admission. Total time spent on discharge 35 minutes in counseling, documentation, chart review, and direct care with patient. Exam Data for Last 24 hours Vital signs and Labs for Last 24 Hours: Temp Pulse Resp BP Pulse Ox O2 Del Method 98.5 F 100 H 22 113/74 92 L Room Air 06/06/23 07:49 06/06/23 08:00 06/06/23 07:49 06/06/23 07:49 06/06/23 08:00 06/06/23 08:00 Laboratory Results - last 24 hr 06/06/23 05:30: WBC 10.3, RBC 3.71 L, Hgb 12.6 L, Hct 38.0 L, MCV 102.3 H, MCH 33.8 H, MCHC 33.1, RDW 14.5, Plt Count 218, MPV 8.6, Neut % (Auto) 82.0 H, Lymph % (Auto) 12.3, Evangeline % (Auto) 5.0, Eos % (Auto) 0.4, Baso % (Auto) 0.3, Neut # (Auto) 8.4 H, Lymph # (Auto) 1.3, Evangeline # (Auto) 0.5, Eos # (Auto) 0.0, Baso # (Auto) 0.0, Sodium 129 L, Potassium 4.6, Chloride 99, Carbon Dioxide 29, Anion Gap 5.6, BUN 16 D, Creatinine 1.00, Estimated Creat Clear 122, Estimated GFR 79, Est GFR ( Amer) 95, Glucose 111 H, Calcium 9.2, Phosphorus 2.4 L, Magnesium 2.1, Total Bilirubin 0.9, AST 34, ALT 22 D, Alkaline Phosphatase 112, Total Protein 6.7, Albumin 3.8 D, Globulin 2.9, Albumin/Globulin Ratio 1.3 I & O for Last 24 hours: Intake & Output 06/03/23 06/04/23 06/05/23 06/06/23 23:59 23:59 23:59 23:59 Intake Total 1565 / 1565 1250 / 1250 Output Total 500 / 820 320 / 320 0 / 0 Balance -500 / -820 1245 / 1245 1250 / 1250 Weight 95.935 kg 95.878 kg 98.883 kg Constitutional Constitutional: no acute distress, obese and chronically ill appearing *Routine HEENT Exam Head: Present normocephalic Eye: Present EOMI and PERRL ENT: Present mucous membranes moist *Routine Neck Exam Neck: Present supple; Absent lymphadenopathy *Routine Respiratory Exam Respiratory: Present CTA bilaterally; Absent rhonchi, wheezes or crackles *Routine Cardiovascular Exam Cardiovascular: Present RRR *Routine Abdominal Exam Abdominal: Present soft, normoactive bowel sounds and tenderness (mild in LUQ) *Routine Rectal Exam Patient deferred: visual exam *Routine Exam Patient deferred: penile exam *Routine Extremities Exam Extremities: Absent cyanosis, clubbing or edema *Routine Skin Exam Skin: Present warm; Absent rash *Routine Neurological Exam Neurological: Present alert, oriented X3 and moving all extremities; Absent altered mental status Routine Psychiatric Exam Psychiatric: Present anxious Results Data Completed and Pending Labs on day of discharge: Labs from last 24 hours 06/06/23 05:30 WBC 10.3 RBC 3.71 L Hgb 12.6 L Hct 38.0 L MCV 102.3 H MCH 33.8 H MCHC 33.1 RDW 14.5 Plt Count 218 MPV 8.6 Neut % (Auto) 82.0 H Lymph % (Auto) 12.3 Evangeline % (Auto) 5.0 Eos % (Auto) 0.4 Baso % (Auto) 0.3 Neut # (Auto) 8.4 H Lymph # (Auto) 1.3 Evangeline # (Auto) 0.5 Eos # (Auto) 0.0 Baso # (Auto) 0.0 Sodium 129 L Potassium 4.6 Chloride 99 Carbon Dioxide 29 Anion Gap 5.6 BUN 16 D Creatinine 1.00 Estimated Creat Clear 122 Estimated GFR 79 Est GFR ( Amer) 95 Glucose 111 H Calcium 9.2 Phosphorus 2.4 L Magnesium 2.1 Total Bilirubin 0.9 AST 34 ALT 22 D Alkaline Phosphatase 112 Total Protein 6.7 Albumin 3.8 D Globulin 2.9 Albumin/Globulin Ratio 1.3 DS: Diagnosis Discharge Diagnosis (1) Pancreatitis: Status: Acute Code(s): K85.90 - Acute pancreatitis without necrosis or infection, unspecified (2) Chronic prescription opiate use: Status: Acute Code(s): Z79.891 - equipment operator intermodal yard (current) use of opiate analgesic (3) COPD (chronic obstructive pulmonary disease): Status: Acute Code(s): J44.9 - Chronic obstructive pulmonary disease, unspecified (4) Back pain: Status: Acute Code(s): M54.9 - Dorsalgia, unspecified (5) Chronic stable angina: Status: Acute Code(s): I20.89 - Other forms of angina pectoris (6) Hypertension: Status: Chronic Code(s): I10 - Essential (primary) hypertension Qualifiers: Hypertension type: primary hypertension Qualified Code(s): I10 - Essential (primary) hypertension (7) HLD (hyperlipidemia): Status: Acute Code(s): E78.5 - Hyperlipidemia, unspecified (8) Tobacco use disorder: Status: Acute Code(s): F17.200 - Nicotine dependence, unspecified, uncomplicated Meds Home Medications and Allergies Home Medications Medication Instructions Recorded Confirmed Type albuterol sulfate 2.5 mg/3 mL 2.5 mg (3 mL) inhalation Q4HP PRN 02/03/23 06/04/23 Rx (0.083 %) solution for nebulization Shortness Of Breath Or Wheezing #90 mL albuterol sulfate 90 mcg/actuation 1 inh inhalation Q4-6H PRN 02/03/23 06/05/23 Rx aerosol inhaler (ProAir HFA) shortness of breath or wheezing #8.5 grams hydroxyzine pamoate 25 mg capsule 25 mg PO BID PRN Anxiety #60 caps 03/03/23 06/04/23 Rx lisinopril 20 1 tab PO DAILY #30 tabs 03/03/23 06/04/23 Rx mg-hydrochlorothiazide 25 mg tablet bisoprolol fumarate 5 mg tablet 5 mg PO BID #90 tabs 03/06/23 06/05/23 Rx hydrocodone 5 mg-acetaminophen 325 1 tab PO TID PRN pain #90 tabs 05/30/23 06/04/23 Rx mg tablet amlodipine 5 mg tablet (Norvasc) 5 mg PO HS 06/05/23 06/05/23 History aspirin 81 mg tablet,delayed 81 mg PO DAILY 06/05/23 06/04/23 History release cyclobenzaprine 10 mg tablet 10 mg PO TID 06/05/23 06/04/23 History escitalopram oxalate 10 mg tablet 10 mg PO DAILY 06/05/23 06/04/23 History pantoprazole 40 mg tablet,delayed 40 mg PO DAILY 06/05/23 06/04/23 History release umeclidinium 62.5 mcg-vilanterol 1 inh inhalation DAILY 06/05/23 06/05/23 History 25 mcg/actuation powdr for inhalation (Anoro Ellipta) New Prescriptions to Start Prescriptions: Allergies Allergy/AdvReac Type Severity Reaction Status Date / Time Penicillins Allergy Severe Rash Verified 05/30/23 11:09 tramadol Allergy Verified 05/30/23 11:09 meloxicam [From [facility]] AdvReac Severe gastritis Verified 05/30/23 11:09 Discharge Plan Disposition Patient Disposition: Home, Self-Care Condition: Fair Follow up Plan Follow up with: Medardo Newman APRN [Primary Care Provider] - 06/15/23 9:30 am Prescriptions/Medication Reconciliation: Continued lisinopril-hydrochlorothiazide 20-25 mg tablet 1 tab PO DAILY Qty: 30 2RF hydroxyzine pamoate 25 mg capsule 25 mg PO BID PRN (Reason: Anxiety) Qty: 60 3RF bisoprolol fumarate 5 mg tablet 5 mg PO BID Qty: 90 3RF hydrocodone-acetaminophen 5-325 mg tablet 1 tab PO TID PRN (Reason: pain) Qty: 90 0RF albuterol sulfate 2.5 mg /3 mL (0.083 %) solution for nebulization 2.5 mg inhalation Q4HP PRN (Reason: Shortness Of Breath Or Wheezing) Qty: 90 0RF albuterol sulfate [ProAir HFA] 90 mcg/actuation HFA aerosol inhaler 1 inh INHALATION Q4-6H PRN (Reason: shortness of breath or wheezing) Qty: 8.5 5RF Anoro Ellipta 62.5-25 mcg/actuation blister with device 1 inh INHALATION DAILY cyclobenzaprine 10 mg tablet 10 mg PO TID amlodipine [Norvasc] 5 mg tablet 5 mg PO HS aspirin 81 mg tablet,delayed release (DR/EC) 81 mg PO DAILY Patient Comments: TAKE 1 TABLET 1 TIME EACH DAY pantoprazole 40 mg tablet,delayed release (DR/EC) 40 mg PO DAILY escitalopram oxalate 10 mg tablet 10 mg PO DAILY Problem Reconciliation Problems Reviewed?: Yes Patient Discharge Instructions ACTIVITY: Continue current activity DIET: continue same diet and advance to your usual diet Patient Instructions: DI for Pancreatitis Providers Primary Care Provider: Medardo Newman Provider: Miquel Amin Attending Provider: Miquel Amin
[2023-06-06] MEDS: diazePAM 5MG TABLET 5 MG PO (11:40)
--- NOTE | 2023-06-07 12:13 | CARE MANAGER ---
Called and spoke with patient's mother, who stated he is doing much better. Aware of f/u appt. No concerns voiced at time of call.
== END 2023-06-06 12:05 | disposition home or self-care (01) ==
LOC: ER 21:28 → 2ND 22:40
PROVIDERS: Internal Medicine Adolescent Medicine; Nurse Practitioner Critical Care Medicine; Admitting Provider Internal Medicine; Emergency Provider Student in an Organized Health Care Education/Training Program; PCP Nurse Practitioner Family; Visit Provider Internal Medicine
DX: K85.80 Other acute pancreatitis without necrosis or infection (principal); Z79.891 Long term (current) use of opiate analgesic; J44.9 Chronic obstructive pulmonary disease, unspecified; M54.9 Dorsalgia, unspecified; I10 Essential (primary) hypertension; F17.210 Nicotine dependence, cigarettes, uncomplicated; E78.5 Hyperlipidemia, unspecified; I20.89 Other forms of angina pectoris; Z79.899 Other long term (current) drug therapy; R06.02 Shortness of breath
CPT/HCPCS: 36415; 71275; 80048; 80053; 83690; 83735; 84100; 84484; 85007; 85025; 87636; 93005; 99291; G0378; J1171; J2405; Q9967

== ENCOUNTER 2023-07-13 13:01 | Outpatient (CLI) | payer OTHER, SELFPAY ==
[2023-07-13 18:21] LABS: Basophils # 0.1 K/mm3 (0-0.2); Basophils % 0.7 % (0.1-2.0); Eosinophils # 0.2 K/mm3 (0.0-0.4); Eosinophils % 2.5 % (0.1-12.0); Hematocrit 40.8 % (42.0-52.0); Hemoglobin 13.7 g/dL (14.1-18.0); Lymphocytes # 3.4 K/mm3 (0.7-4.5); Lymphocytes % 37.2 % (10-50); Mean Corpuscular HGB Conc 33.6 g/dL (31.8-35.4); Mean Corpuscular Hemoglobin 32.7 pg (27.0-31.2); Mean Corpuscular Volume 97.4 fl (80-94); Mean Platelet Volume 9.3 fl (7.4-10.4); Monocytes # 0.5 K/mm3 (0.1-1.0); Monocytes % 5.7 % (1.7-9.3); Neutrophils # 4.9 K/mm3 (1.8-7.8); Neutrophils % 53.8 % (37.0-80.0); Platelet Count 323 K/mm3 (142-424); Red Blood Count 4.19 M/mm3 (4.60-6.20); Red Cell Distribution Width 14.4 % (11.5-17.5); White Blood Count 9.1 K/mm3 (4.8-10.8)
[2023-07-13 18:49] LABS: Alanine Aminotransferase 26 U/L (12-78); Albumin Level 4.5 g/dl (3.5-5.0); Albumin/Globulin Ratio 1.5 (1.1-1.8); Alkaline Phosphatase 141 U/L (38-126); Amylase 54 U/L (30-110); Anion Gap 15.5 mEq/L (5-15); Aspartate Amino Transferase 26 U/L (17-59); Bilirubin,Total 0.4 mg/dl (0.2-1.3); Blood Urea Nitrogen 19 mg/dl (9-20); Calcium 10.4 mg/dl (8.4-10.2); Carbon Dioxide 23 mmol/L (22.0-30.0); Chloride 101 mmol/L (98-107); Estimated Glomerular Filt Rate 64 ml/min (>60); GFR (African American) 77 ML/MIN (>60); Globulin 3.1 g/dL (1.3-3.2); Glucose 118 mg/dl (74-100); Lipase 39 U/L (23-300); Potassium 4.5 mmoL/L (3.5-5.1); Sodium 135 mmol/L (136-145); Total Protein,Serum 7.6 g/dl (6.3-8.2)
[2023-07-14 13:24] LABS: Hemoglobin A1C 6.1 % (4.0-6.0)
== END 2023-07-13 23:59 | disposition home or self-care (01) ==
LOC: LAB.DROPOF 07-14 13:02
PROVIDERS: PCP Nurse Practitioner Family; Visit Provider Nurse Practitioner Family
DX: K85.90 Acute pancreatitis without necrosis or infection, unspecified (principal); R53.83 Other fatigue
CPT/HCPCS: 80053; 82150; 83036; 83690; 85025

== ENCOUNTER 2023-08-04 12:42 | Outpatient (CLI) | payer OTHER, SELFPAY ==
--- NOTE | 2023-08-04 12:43 | CA_ITS ---
APPROVED REPORT EXAM: Comprehensive 2D, Doppler, and color-flow Echocardiogram Environmental Sciences Professor: Tova Johnston RDCS Ht: 5 ft 9 in Wt: 198lbs BSA: 2.06 BP: 95/68 mmHg Indications: SOA,SMOKER,COPD,HTN,HLP,SOA,REYES M-Mode Dimensions RVDd 2.48 cm (0.9-2.6) LA Diam 3.63 cm (1.9-4.0) LVDd 4.40 cm (3.5-5.7) LVDs 3.20 cm (3.5-5.7) IVSd 0.68 cm (0.6-1.1) PWd 0.72 cm (0.6-1.1) EF (Teich) 53.20% FS 27.30% EDV (Teich) 87.70 mL ESV (Teich) 41.00 mL LV Diastology E Decel Time 190 (160-240 msec) E/A Ratio 0.7 Mitral Valve MV E Max Richard. 60.0 (40-130 cm/s) MV A Velocity 87.0 (40-130 cm/s) E/A Ratio 0.68 MV PHT 56.0 ms Left Ventricle The left ventricle is normal size. The left ventricular systolic function is normal. The left ventricular ejection fraction is within the normal range. There is increased LV wall thickness. There is normal LV segmental wall motion. Transmitral Doppler flow pattern suggests impaired LV relaxation. LVEF is 60%. Right Ventricle The right ventricle is mildly dilated. The right ventricular systolic function is normal. Atria The left atrium size is normal. The right atrium size is normal. There is no Doppler evidence of interatrial shunt. Aortic Valve The aortic valve opens well. There is no aortic valvular stenosis. Trace aortic regurgitation is present. Mitral Valve The mitral valve is normal in structure. No evidence of mitral valve stenosis. Trace mitral regurgitation. Tricuspid Valve The tricuspid valve leaflets are thin and pliable. Trace tricuspid regurgitation. There is insufficient TR jet to estimate RVSP. Pulmonic Valve The pulmonary valve is normal in structure. Trace pulmonic regurgitation. Great Vessels The aortic root is normal in size. The ascending aorta is not well-visualized. IVC is normal in size and collapses >50% with inspiration. Pericardium There is no pericardial effusion. Other Information Study Quality: Fair Conclusion Normal biventricular systolic function. Mild RV dilation. No significant valvular stenosis or regurgitation. Electronically signed by : Vannessa Brothers MD 08/07/2023 12:13:24
== END 2023-08-04 23:59 | disposition home or self-care (01) ==
LOC: RT 12:43
PROVIDERS: PCP Nurse Practitioner Family; Visit Provider Physician Assistant
DX: R06.09 Other forms of dyspnea (principal); E78.5 Hyperlipidemia, unspecified; E66.09 Other obesity due to excess calories; Z68.30 Body mass index [BMI] 30.0-30.9, adult; I10 Essential (primary) hypertension; J44.9 Chronic obstructive pulmonary disease, unspecified; R00.0 Tachycardia, unspecified; F17.210 Nicotine dependence, cigarettes, uncomplicated
CPT/HCPCS: 93306

== ENCOUNTER 2023-12-12 11:03 | Outpatient (CLI) | payer OTHER, SELFPAY ==
[2023-12-12 13:16] LABS: Hemoglobin A1C 5.9 % (4.0-6.0)
[2023-12-12 13:34] LABS: Chol/HDL Ratio 5.8 (1-3.5); Cholesterol 250 mg/dl (140-200); HDL Cholesterol 43 mg/dl (40-60); Triglycerides 262 mg/dl (30-150); VLDL Cholesterol 52 mg/dL (0-40)
[2023-12-12 13:45] LABS: Direct LDL Cholesterol 155.94 mg/dL (100-129)
[2023-12-12 13:51] LABS: Free Thyroxine Index 2.4 ug/dL (5.93-13.13); T4 (Thyroxine) 6.7 ug/dl (5.53-11.0); Triiodothryronine (T3) Uptake 36 % (23.5-40.5)
[2023-12-12 14:05] LABS: Prostate Specific Ag Screen 1.8 ng/ml (0.0-4.0)
[2023-12-12 15:21] LABS: Thyroid Stimulating Hormone 0.86 uIU/mL (0.465-4.68)
[2023-12-12 15:27] LABS: HIV (1&2) Antibody Rapid NONREACTIVE (NONREACTIVE)
[2023-12-15 18:10] LABS: HCV Ab Reactive (Non Reactive)
== END 2023-12-12 23:59 | disposition home or self-care (01) ==
LOC: LAB 11:06
PROVIDERS: PCP Nurse Practitioner Family; Visit Provider Family Medicine
DX: R94.6 Abnormal results of thyroid function studies (principal); Z00.00 Encounter for general adult medical examination without abnormal findings; E78.2 Mixed hyperlipidemia; I20.89 Other forms of angina pectoris; M54.9 Dorsalgia, unspecified; Z79.891 Long term (current) use of opiate analgesic; I10 Essential (primary) hypertension; E66.09 Other obesity due to excess calories; Z68.30 Body mass index [BMI] 30.0-30.9, adult; J44.9 Chronic obstructive pulmonary disease, unspecified; F17.200 Nicotine dependence, unspecified, uncomplicated; M99.81 Other biomechanical lesions of cervical region; M50.20 Other cervical disc displacement, unspecified cervical region; J43.9 Emphysema, unspecified; Z11.4 Encounter for screening for human immunodeficiency virus [HIV]; Z11.59 Encounter for screening for other viral diseases; Z91.89 Other specified personal risk factors, not elsewhere classified
CPT/HCPCS: 36415; 80061; 83036; 84436; 84443; 84479; 86803; 87389; G0103

== ENCOUNTER 2024-02-01 09:40 | Outpatient (CLI) | payer OTHER, SELFPAY ==
[2024-02-01 19:12] LABS: Alanine Aminotransferase 23 U/L (12-78); Albumin Level 4.7 g/dl (3.5-5.0); Albumin/Globulin Ratio 1.8 (1.1-1.8); Alkaline Phosphatase 186 U/L (38-126); Anion Gap 14.5 mEq/L (5-15); Aspartate Amino Transferase 27 U/L (17-59); Bilirubin,Total 0.7 mg/dl (0.2-1.3); Blood Urea Nitrogen 13 mg/dl (9-20); Calcium 10.2 mg/dl (8.4-10.2); Carbon Dioxide 24 mmol/L (22.0-30.0); Chloride 106 mmol/L (98-107); Chol/HDL Ratio 4.3 (1-3.5); Cholesterol 213 mg/dl (140-200); Estimated Glomerular Filt Rate 79 ml/min (>60); GFR (African American) 95 ML/MIN (>60); Globulin 2.6 g/dL (1.3-3.2); Glucose 112 mg/dl (74-100); HDL Cholesterol 49 mg/dl (40-60); Potassium 4.5 mmoL/L (3.5-5.1); Sodium 140 mmol/L (136-145); Total Protein,Serum 7.3 g/dl (6.3-8.2); Triglycerides 178 mg/dl (30-150); VLDL Cholesterol 36 mg/dL (0-40)
[2024-02-01 19:24] LABS: Direct LDL Cholesterol 133.49 mg/dL (100-129)
== END 2024-02-01 23:59 | disposition home or self-care (01) ==
LOC: LAB.DROPOF 02-02 09:19
PROVIDERS: PCP Family Medicine; Visit Provider Family Medicine
DX: Z00.00 Encounter for general adult medical examination without abnormal findings (principal)
CPT/HCPCS: 80053; 80061

== ENCOUNTER 2025-01-01 15:15 | Outpatient (CLI) | payer OTHER, SELFPAY ==
[2025-01-01 20:28] LABS: Hematocrit 45.5 % (42.0-52.0); Hemoglobin 16.1 g/dL (14.1-18.0); Immature Granulocytes % 0.4 %; Mean Corpuscular HGB Conc 35.4 g/dL (31.8-35.4); Mean Corpuscular Hemoglobin 31.0 pg (27.0-31.2); Mean Corpuscular Volume 87.7 fl (80-94); Nucleated Red Blood Cells % 0 %; Platelet Count 241 K/mm3 (142-424); Red Blood Count 5.19 M/mm3 (4.60-6.20); Red Cell Distribution Width-SD 44.6 fL; White Blood Count 7.4 K/mm3 (4.8-10.8)
[2025-01-01 21:07] LABS: Albumin Level 5.1 g/dl (3.5-5.0); Chloride 104 mmol/L (98-107); Potassium 4.6 mmoL/L (3.5-5.1); Sodium 137 mmol/L (136-145)
[2025-01-01 21:09] LABS: Blood Urea Nitrogen 17 mg/dl (9-20); Creatinine,Serum 1.00 mg/dl (0.66-1.25); Estimated Glomerular Filt Rate 78 ml/min (>60); GFR (African American) 95 ML/MIN (>60)
[2025-01-01 21:10] LABS: Alanine Aminotransferase 17 U/L (12-78); Albumin/Globulin Ratio 2.1 (1.1-1.8); Alkaline Phosphatase 159 U/L (38-126); Anion Gap 14.6 mEq/L (5-15); Aspartate Amino Transferase 23 U/L (17-59); Bilirubin,Total 0.4 mg/dl (0.2-1.3); Calcium 9.7 mg/dl (8.4-10.2); Carbon Dioxide 23 mmol/L (22.0-30.0); Cholesterol 203 mg/dl (140-200); Globulin 2.4 g/dL (1.3-3.2); Glucose 90 mg/dl (74-100); Total Protein,Serum 7.5 g/dl (6.3-8.2); Triglycerides 300 mg/dl (30-150)
[2025-01-01 21:27] LABS: 25-OH Vitamin D, Total 38.0 ng/mL (30-100)
[2025-01-01 21:40] LABS: Thyroid Stimulating Hormone 1.35 uIU/mL (0.465-4.68)
[2025-01-01 21:45] LABS: HDL Cholesterol 46 mg/dl (40-60)
[2025-01-01 21:58] LABS: Hepatitis C Ab Qual. W/ RFX REACTIVE (Negative)
--- OUTSIDE RECORDS SUMMARY | 2025-01-02 20:20 | XMS_ITS | Clinical Summary ---
Author Organization [facility] Address [address] [place] [address] Care Team Providers Care Setup Technician Name Role Phone Frederick Alvarado MD Primary Care Provider [phone] Allergies Active Allergy Reactions Criticality Noted Date Comments Penicillins Hives Medium 08/05/2020 Tramadol Hives Medium 08/05/2020 Medications cyclobenzaprine (Flexeril) 10 MG tablet Take 10 mg by mouth 3 (three) times a day if needed. 1 Active hydrOXYzine pamoate (Vistaril) 25 MG capsule Take 25 mg by mouth 2 (two) times a day if needed. 1 Active albuterol (2.5 MG/3ML) 0.083% nebulizer solution Take 3 mL by nebulization every 4 (four) hours if needed. 1 Active albuterol 108 (90 Base) MCG/ACT inhaler Inhale 2 puffs every 4 (four) hours if needed. 0 Active Anoro Ellipta 62.5-25 MCG/INH aerosol powder Inhale 1 puff 1 (one) time each day. 1 Active Ascorbic Acid (vitamin C) 250 MG tablet Take 250 mg by mouth 1 (one) time each day. Active methocarbamol (Robaxin) 500 MG tablet Take 1 tablet (500 mg total) by mouth 3 (three) times a day if needed for muscle spasms. 30 tablet 1 Active diclofenac (Voltaren) 1 % topical gel Place 1 application on the skin 4 (four) times a day if needed (Back pain). 100 g 1 Active oxyCODONE (Roxicodone) 5 MG immediate release tablet TAKE 1 TABLET 2 TIMES EACH DAY FOR PAIN 1 Active Active Problems Problem Noted Date Diagnosed Date Dyspnea on exertion 08/07/2020 Smoking greater than 20 pack years 08/07/2020 Discitis of thoracic region 08/05/2020 Anxiety Multilevel degenerative disc disease COPD (chronic obstructive pulmonary disease) Nicotine dependence Hypertension Depression Resolved Problems Problem Noted Date Diagnosed Date Resolved Date Post-operative pain 08/11/2020 11/18/19 25 Family History Medical History Relation Name Comments Cancer Father Diabetes Mother Heart disease Mother Hyperlipidemia Mother Hypertension Mother Stroke Mother Relation Name Status Comments Father Mother Social History Tobacco Use Types Packs/Day Years Used Date Smoking Tobacco: Every Day Cigarettes 0.5 30 Smokeless Tobacco: Former Snuff Tobacco Cessation:Ready to Q uit: No; Counseling Given: Yes Alcohol Use Standard Drinks/Week Comments Not Currently 0 (1 standard drink = 0.6 oz pur e alcohol) Sex and Gender Information Value Date Recorded Sex Assigned at Male 08/07/2020 9:32 AM EDT Legal Sex Male 8:05 PM EDT Gender Identity Male 08/07/2020 9:32 AM EDT Sexual Orientation Straight 08/07/2020 9: 32 AM EDT Last Filed Vital Signs Vital Sign Reading Time Taken Comments Blood Pressure 134/88 09/21/2020 12:35 PM EDT Pulse 103 09/21/2020 12:35 PM EDT Temperature 36.6 C (97.8 F) 09/21/2020 12:35 PM EDT Respiratory Rate 16 09/21/2020 12:35 PM EDT Oxygen Saturation 97% 09/21/2020 12:35 PM EDT Inhaled Oxygen Concentration - - Weight 72.6 kg (160 lb) 09/21/2020 12:00 PM EDT Height 175.3 cm (5' 9 ) 08/08/2020 12:47 AM EDT Body Mass Index 23.63 08/08/2020 12:47 AM EDT Plan of Treatment Health Maintenance Due Date Last Done Comments [facility]-Depression Screening 1972 [facility]-Infant/Child/Adol SDOH Screenings 1972 [facility]- SDOH Screenings 1990 [facility]-Adult SDOH Screenings 1990 [facility]-Hepatitis B Vaccines (1 of 3 - 19+ 3-dose series) 05/09/1991 CT Colonography 2017 Colonoscopy 2017 FIT-DNA 2017 FIT 2017 FOBT 2017 Sigmoidoscopy 2017 [facility]-Colorectal Cancer Screening 2017 [facility]-Pneumococcal Vaccine: 50 + Years (1 of 1 - PCV) 2022 [facility]-Zoster Vaccines (1 of 2) 2022 [facility]-DTaP,Tdap,and Td Vaccine s (2 - Td or Tdap) 03/31/2024 03/31/2014 [id number] Vaccine (1 - 20 24-25 season) 2024 [facility]-Influenza Vaccine (#1) 2024 03/29/2014 HPV Vaccines Aged Out No longer eligi ble based on patient's age to complete this topic [facility]-HIB Vaccines Aged Out No longer e ligible based on patient's age to complete this topic [facility]-Hepatitis A Vaccines Aged Out No longer eligible based on patient's age to complete this topic [facility]-IPV Vaccines Aged Out No longer e ligible based on patient's age to complete this topic [facility]-Rotavirus Vaccines Aged Out No lo nger eligible based on patient's age to complete this topic Goals Goal Patient Goal Type Associated Problems Recent Progress Patient-Stated? Author Patient will adhere to medication regimen General No Roseanne Mcnulty RN Medical Devices Implanted Type Area Executive Sales Manager Device Identifier Shelf Expiration Date Model / Serial / Lot Expedium Pre-Cut Hex End Rick, [id number], - [id number] Implanted:Qty: 2 on 08/07/2020 by Hiren Jose MD at [facility] Rick N/A: Back [employer] [id number] / / Screw 4.35mm Viper Ti Cortical Titanium 30mm - [id number] Implanted:Qty: 3 on 08/07/2020 by Hiren Jose MD at [facility] Screw N/A: Back [employer] [place] [id number] / / Screw 5.5mm Viper Ti Fen Crtcl Polyax 5mm X 45mm - [id number] Implanted:Qty: 2 on 08/07/2020 by Hiren Jose MD at [facility] Screw N/A: Back [employer] [id number] / / Screw 4.35mm Viper Ti Cortical Titanium 35mm - [id number] Implanted:Qty: 1 on 08/07/2020 by Hiren Jose MD at [facility] Screw N/A: Back [employer] [id number] / / Single Inner Setscrew - [id number] Implanted:Qty: 8 on 08/07/2020 by Hiren Jose MD at [facility] N/A: Back [employer] [id number] / / Screw 5.5mm Viper Ti Fen Crtcl Polyax 5mm X 40mm - [id number] Implanted:Qty: 2 on 08/07/2020 by Hiren Jose MD at [facility] N/A: Back [employer] [id number] / / Insurance [address] [place] [address] [id number] [employer] Advance Directives * Full Code (Latest Code Status on File) Date Activated Date Inactivated Comments 08/05/2020 10:09 PM 08/15/2020 5:33 PM Question Answer Comments Patient has decision-making capacity? Yes Care Teams Setup Technician Relationship Specialty Start Date End Date Frederick Alvarado MD [address] [facility], [place] [address] PCP - General 07/10/20
[2025-01-03 05:09] LABS: Hepatitis B Surface Antigen Negative (Negative)
== END 2025-01-01 23:59 | disposition home or self-care (01) ==
LOC: LAB.DROPOF 01-02 20:19
PROVIDERS: PCP Nurse Practitioner Family; Visit Provider Nurse Practitioner Family
DX: E78.5 Hyperlipidemia, unspecified (principal); E66.9 Obesity, unspecified; I10 Essential (primary) hypertension; R53.83 Other fatigue; Z11.59 Encounter for screening for other viral diseases; Z91.89 Other specified personal risk factors, not elsewhere classified; Z12.5 Encounter for screening for malignant neoplasm of prostate; R94.6 Abnormal results of thyroid function studies
CPT/HCPCS: 80053; 80061; 82306; 84443; 85025; 86803; 87340; 87389; 87522; G0103